=== PATIENT | female | born 1945 | race Caucasian/White ===

== ENCOUNTER → 2016-11-04 | Outpatient (CLI) | payer MEDICARE ==
--- NOTE | 2016-11-04 12:26 | XR ---
EXAMINATION TYPE: XR Hip Bilateral Complete DATE OF EXAM: 11/04/2016 10:20 AM COMPARISON: 09/03/2014 HISTORY: 71 year-old female bilateral hip pain TECHNIQUE: 2 views each hip FINDINGS: Similar mild degenerative spurring of the right hip. No acute fracture or dislocation. Similar mild degenerative spurring of the left hip. No acute fracture or dislocation. Osteopenia. SI joints appear symmetric and intact as does the pubic symphysis. Degenerative changes l ower lumbar spine. IMPRESSION: Mild bilateral hip osteoarthrosis. Osteopenia without displaced fracture.
== END | disposition home or self-care (01) ==
LOC: RADXRMAIN 10:03
PROVIDERS: ATTEND Psychiatry & Neurology Neurology
DX: M16.0 Bilateral primary osteoarthritis of hip (principal); M85.80 Other specified disorders of bone density and structure, unspecified site
CPT/HCPCS: 73521

== ENCOUNTER → 2017-03-08 | Outpatient (CLI) | payer MEDICARE | END | disposition home or self-care (01) | LOC: LABWHC1 09:55 | PROVIDERS: ATTEND Physician Assistant | DX: M79.1 Myalgia (principal) | CPT/HCPCS: 36415; 82085; 82550 ==

== ENCOUNTER → 2017-05-16 | Outpatient (CLI) | payer MEDICARE ==
--- NOTE | 2017-05-18 11:26 | MM ---
Reason for exam: screening (asymptomatic). Last mammogram was performed 1 year and 5 months ago. History: Patient is postmenopausal and has history of other cancer at age 67. Family history of breast cancer in aunt. Benign stereotactic core biopsy of the right breast, May 14, 1998. Excisional biopsy of the left breast. Excisional biopsy of the right breast. Physical Findings: A clinical breast exam by your physician is recommended on an annual basis and results should be correlated with mammographic findings. MG 3D Screening Mammo W/Cad Bilateral CC and MLO view(s) were taken. XCCL view(s) were taken of the right breast. Prior study comparison: December 26, 2015, bilateral MG 3d screening mammo w/cad. August 01, 2014, bilateral MG screening mammo w CAD. Focal asymmetry bilaterally, stable. Port on right. No significant changes when compared with prior studies. ASSESSMENT: Benign, BI-RAD 2 RECOMMENDATION: Routine screening mammogram of both breasts in 1 year.
== END | disposition home or self-care (01) ==
LOC: RADMAMWWP 09:31
PROVIDERS: ATTEND Family Medicine
DX: Z12.31 Encounter for screening mammogram for malignant neoplasm of breast (principal)
CPT/HCPCS: 77063; G0202; 77080

== ENCOUNTER → 2017-07-05 | Outpatient (CLI) | payer MEDICARE ==
--- NOTE | 2017-07-05 13:04 | US ---
EXAMINATION TYPE: US carotid duplex BILAT DATE OF EXAM: 07/05/2017 COMPARISON: NONE CLINICAL HISTORY: 72-year-old female dizziness R42. TECHNIQUE: Carotid duplex ultrasound examination. Indirect Doppler criteria was utilized. FINDINGS: Grayscale images show moderate atherosclerotic change at both bifurcations. EXAM MEASUREMENTS: RIGHT: Peak Systolic Velocity (PSV) cm/sec ----- Right CCA: 74.7 ----- Right ICA: 85.5 ----- Right ECA: 138.4 ICA/CCA ratio: 1.1 RIGHT: End Diastole cm/sec ----- Right CCA: 16.2 ----- Right ICA: 18.3 ----- Right ECA: 20.4 LEFT: Peak Systolic Velocity (PSV) cm/sec ----- Left CCA: 76.7 ----- Left ICA: 116.1 ----- Left ECA: 84.4 ICA/CCA ratio: 1.5 LEFT: End Diastole cm/sec ----- Left CCA: 19.4 ----- Left ICA: 26.7 ----- Left ECA: 8.4 VERTEBRALS (direction of flow): Right Vertebral: Antegrade Left Vertebral: Antegrade Rhythm: Normal IMPRESSION: No hemodynamically significant stenosis appreciated in either internal carotid artery. Criteria for Assigning % of Stenosis / Diameter reduction (Estimation based on the indirect measurements of the internal carotid artery velocities (ICA PSV). 1. Normal (no stenosis)=ICA PSV < 125 cm/s: ratio < 2.0: ICA EDV<40 cm/s. 2. Less than 50% stenosis=ICA PSV < 125 cm/s: ratio < 2.0: ICA EDV<40 cm/s. 3. 50 to 69% stenosis=ICA PSV of 125 to 230 cm/s: ration 2.0 ? 4.0: ICA EDV 40-100 cm/s. 4. Greater than 70% stenosis to near occlusion= ICA PSV > 230 cm/s: ratio > 4.0: ICA EDV > 100 cm/s. 5. Near occlusion= ICA PSV velocities may be low or undetectable: variable ratio and ICA EDV. 6. Total occlusion=unable to detect flow.
== END | disposition home or self-care (01) ==
LOC: RADUSWWP 10:07
PROVIDERS: ATTEND Psychiatry & Neurology Neurology
DX: R42 Dizziness and giddiness (principal)
CPT/HCPCS: 93880

== ENCOUNTER 2018-10-21 19:48 | Emergency (ER) | payer MEDICARE ==
[2018-10-21 20:04] VITALS: RESP 20; TEMP 98.5
--- NOTE | 2018-10-21 20:06 | ED ---
Back Pain HPI - General Chief Complaint: Back Pain/Injury Stated Complaint: Back pain Time Seen by Provider: 10/21/18 20:05 Source: patient, family Limitations: no limitations - History of Present Illness Initial Comments: Wanda is a pleasant 73-year-old female who presents to the emergency department today for evaluation of right-sided flank pain. Patient reports that midafte rnoon she began having pain in the flank she initially thought it may be a muscle spasm she took some nausea and a muscle relaxer with no relief. The pain is continued to worsen throughout the evening which prompted her to come to the ER for evaluation. Pain is not associated with any fever, chills, nausea, vomiting change in bowel or bladder habits. Patient does not noticed any hematuria or dysuria. She has no history of kidney stones. Patient reports that the pain is constant without exacerbating or relieving factors. - Related Data Home Medications Medication Instructions Recorded Confirmed Citalopram Hydrobromide [CeleXA] 20 mg PO HS 08/05/14 08/07/14 Esomeprazole Magnesium [NexIUM 20 mg PO HS 08/05/14 08/07/14 24Hr] Losartan Potassium 100 mg PO DAILY 08/05/14 08/07/14 Montelukast [Singulair] 10 mg PO HS 08/05/14 08/07/14 Warfarin Sodium [Coumadin] 5 mg PO MOFR 08/05/14 08/07/14 Warfarin [Coumadin] 2.5 mg PO SUTUWETHSA 08/05/14 08/07/14 Zolpidem Tartrate [Ambien] 10 mg PO HS 08/05/14 08/07/14 cycloSPORINE [Restasis] 1 applicator BOTH EYES HS 08/05/14 08/07/14 traMADol HCl [Ultram] 50 mg PO BID PRN 08/05/14 08/07/14 Allergies Allergy/AdvReac Type Severity Reaction Status Date / Time Penicillins Allergy Severe throat Verified 10/21/18 20:04 swelling Sulfa (Sulfonamide Allergy Unknown Verified 10/21/18 20:04 Antibiotics) Review of Systems ROS Statement: Those systems with pertinent positive or pertinent negative responses have been documented in the HPI. ROS Other: All systems not noted in ROS Statement are negative. Past Medical History Past Medical History: Atrial Fibrillation, Asthma, Cancer, Chest Pain / Angina, Deep Vein Thrombosis (DVT), GERD/Reflux, Hypertension, Myocardial Infarction (SC), Pulmonary Embolus (PE) Additional Past Medical History / Comment(s): heart murmur, Pe Lt lung 2012, DVT Lt thigh 2012, loose bowels, cold sores, rectal and nonhogkins cancer Last Myocardial Infarction Date:: unknown History of Any Multi-Drug Resistant Organisms: None Reported Past Surgical History: Hysterectomy Past Anesthesia/Blood Transfusion Reactions: No Reported Reaction, Motion Sickness Past Psychological History: No Psychological Hx Reported Smoking Status: Never smoker Past Alcohol Use History: None Reported Past Drug Use History: None Reported - Past Family History father Family Medical History: Deep Vein Thrombosis (DVT) General Exam - General Exam Comments Initial Comments: Physical Exam GENERAL: Appears uncomfortable HENT: Normocephalic, Atraumatic. EYES: PERRL, EOMI PULMONARY: Unlabored respirations. No audible rales rhonchi or wheezing was noted. CARDIOVASCULAR: There is a regular rate and rhythm without any murmurs gallops or rubs. Abdomen well-perfused lower extremities DP and PT pulses are present and equal bilaterally, femoral pulses present and equal bilaterally no pulsatile masses in the abdomen ABDOMEN: Soft and nontender with normal bowel sounds. Tenderness to percussion of the right flank SKIN: Skin is clear with no lesions or rashes and otherwise unremarkable. : Deferred NEUROLOGIC: Patient is alert and oriented x3. Moving all extremities spontaneously MUSCULOSKELETAL: Normal extremities with adequate strength and full range of motion. No lower extremity swelling or edema. No calf tenderness. PSYCHIATRIC: Normal psychiatric evaluation. Limitations: no limitations Limitations: no limitations Course Vital Signs 10/21/18 10/21/18 20:00 23:10 Temperature 98.5 F Pulse Rate 92 83 Respiratory 20 20 Rate Blood Pressure 205/76 142/73 O2 Sat by Pulse 100 99 Oximetry Medical Decision Making - Medical Decision Making The patient was seen and evaluated history is obtained from the patient and at bedside This is a pleasant 73-year-old female with right-sided flank pain with no associated symptoms this is been ongoing for a number of hours without relieving factors Patient cannot find a comfortable position she is moving about history and physical exam are concerning for kidney stone though the patient has no history of such she does have a history of hypertension hyperlipidemia an SC in the past therefore a CT with contrast will be ordered to evaluate the vasculature in the abdomen as well Labs imaging morphine were ordered Labs are unremarkable CT scan reveals no acute abnormalities Patient was given Toradol and Valium upon reevaluation the patient reports she is feeling much better she is much more comfortable at this time. I discussed with the patient the negative workup so far. I advised her that it is possible she is having a muscle spasm is felt was her initial not however I did advise her that she should keep a close eye on the area and if she develops any rashing needs to be evaluated for possible shingles as she may be experiencing neuralgia. Patient's breast understanding of this. All questions pertaining care were answered return parameters were discussed patient with discharge home in stable condition - Lab Data Result diagrams: 10/21/18 21:17 10/21/18 21:17 Lab Results 10/21/18 10/21/18 10/21/18 Range/Units 21:17 21:17 21:17 WBC 10.7 H (3.8-10.6) k/uL RBC 4.52 (3.80-5.40) m/uL Hgb 13.5 (11.4-16.0) gm/dL Hct 40.8 (34.0-46.0) % MCV 90.2 (80.0-100.0) fL MCH 29.9 (25.0-35.0) pg MCHC 33.2 (31.0-37.0) g/dL RDW 13.8 (11.5-15.5) % Plt Count 259 (150-450) k/uL Neutrophils % 65 % Lymphocytes % 26 % Monocytes % 4 % Eosinophils % 3 % Basophils % 1 % Neutrophils # 6.9 (1.3-7.7) k/uL Lymphocytes # 2.7 (1.0-4.8) k/uL Monocytes # 0.4 (0-1.0) k/uL Eosinophils # 0.3 (0-0.7) k/uL Basophils # 0.1 (0-0.2) k/uL PT 26.0 H (9.0-12.0) sec INR 2.7 H (<1.2) Sodium 137 (137-145) mmol/L Potassium 4.5 (3.5-5.1) mmol/L Chloride 100 (98-107) mmol/L Carbon Dioxide 24 (22-30) mmol/L Anion Gap 13 mmol/L BUN 29 H (7-17) mg/dL Creatinine 1.18 H (0.52-1.04) mg/dL Est GFR (CKD-EPI)AfAm 53 (>60 ml/min/1.73 sqM) Est GFR (CKD-EPI)NonAf 46 (>60 ml/min/1.73 sqM) Glucose 121 H (74-99) mg/dL Calcium 10.4 H (8.4-10.2) mg/dL Total Bilirubin 0.6 (0.2-1.3) mg/dL AST 27 (14-36) U/L ALT 32 (9-52) U/L Alkaline Phosphatase 129 H (38-126) U/L Total Protein 7.9 (6.3-8.2) g/dL Albumin 4.7 (3.5-5.0) g/dL Urine Color Urine Appearance (Clear) Urine pH (5.0-8.0) Ur Specific [place] (1.001-1.035) Urine Protein (Negative) Urine Glucose (UA) (Negative) Urine Ketones (Negative) Urine Blood (Negative) Urine Nitrite (Negative) Urine Bilirubin (Negative) Urine Urobilinogen (<2.0) mg/dL Ur Leukocyte Esterase (Negative) Urine RBC (0-5) /hpf Urine WBC (0-5) /hpf Urine Mucus (None) /hpf 10/21/18 Range/Units 21:26 WBC (3.8-10.6) k/uL RBC (3.80-5.40) m/uL Hgb (11.4-16.0) gm/dL Hct (34.0-46.0) % MCV (80.0-100.0) fL MCH (25.0-35.0) pg MCHC (31.0-37.0) g/dL RDW (11.5-15.5) % Plt Count (150-450) k/uL Neutrophils % % Lymphocytes % % Monocytes % % Eosinophils % % Basophils % % Neutrophils # (1.3-7.7) k/uL Lymphocytes # (1.0-4.8) k/uL Monocytes # (0-1.0) k/uL Eosinophils # (0-0.7) k/uL Basophils # (0-0.2) k/uL PT (9.0-12.0) sec INR (<1.2) Sodium (137-145) mmol/L Potassium (3.5-5.1) mmol/L Chloride (98-107) mmol/L Carbon Dioxide (22-30) mmol/L Anion Gap mmol/L BUN (7-17) mg/dL Creatinine (0.52-1.04) mg/dL Est GFR (CKD-EPI)AfAm (>60 ml/min/1.73 sqM) Est GFR (CKD-EPI)NonAf (>60 ml/min/1.73 sqM) Glucose (74-99) mg/dL Calcium (8.4-10.2) mg/dL Total Bilirubin (0.2-1.3) mg/dL AST (14-36) U/L ALT (9-52) U/L Alkaline Phosphatase (38-126) U/L Total Protein (6.3-8.2) g/dL Albumin (3.5-5.0) g/dL Urine Color Light Yellow Urine Appearance Clear (Clear) Urine pH 7.0 (5.0-8.0) Ur Specific [place] 1.008 (1.001-1.035) Urine Protein Negative (Negative) Urine Glucose (UA) Negative (Negative) Urine Ketones Negative (Negative) Urine Blood Negative (Negative) Urine Nitrite Negative (Negative) Urine Bilirubin Negative (Negative) Urine Urobilinogen <2.0 (<2.0) mg/dL Ur Leukocyte Esterase Small H (Negative) Urine RBC <1 (0-5) /hpf Urine WBC 6 H (0-5) /hpf Urine Mucus Rare H (None) /hpf Disposition Clinical Impression: Mechanical back pain Disposition: HOME SELF-CARE Condition: Stable Instructions (If sedation given, give patient instructions): Acute Low Back Pain (ED) Additional Instructions: Keep an eye out for any rash if you develop any rash there is concern he could be developing shingles and the need to be reevaluated to start antiviral therapy. Is patient prescribed a controlled substance at d/c from ED?: No Referrals: Sukumar Rosa MD [Primary Care Provider] - 1-2 days
[2018-10-21] MEDS ORDERED: SODIUM CHLORIDE 0.9% 1,000 ML IV ONE ×2 (21:05→21:59)
[2018-10-21] MEDS ORDERED: MORPHINE SULFATE 4 MG/ML SYRINGE IVP STA (21:05)
[2018-10-21 21:31] LABS: Basophils # (A) 0.1 k/uL (0-0.2); Basophils % (A) 1 %; Eosinophils # (A) 0.3 k/uL (0-0.7); Eosinophils % (A) 3 %; HCT 40.8 % (34.0-46.0); HGB 13.5 gm/dL (11.4-16.0); Lymphocytes # (A) 2.7 k/uL (1.0-4.8); Lymphocytes % (A) 26 %; MCH 29.9 pg (25.0-35.0); MCHC 33.2 g/dL (31.0-37.0); MCV 90.2 fL (80.0-100.0); Mean Platelet Volume 6.7; Monocytes # (A) 0.4 k/uL (0-1.0); Monocytes % (A) 4 %; Neutrophils # (A) 6.9 k/uL (1.3-7.7); Neutrophils % (A) 65 %; Platelet Count 259 k/uL (150-450); RBC 4.52 m/uL (3.80-5.40); RDW 13.8 % (11.5-15.5); WBC 10.7 k/uL (3.8-10.6)
[2018-10-21 21:41] LABS: Albumin 4.7 g/dL (3.5-5.0); Calcium 10.4 mg/dL (8.4-10.2); Potassium 4.5 mmol/L (3.5-5.1); Total Bilirubin 0.6 mg/dL (0.2-1.3); Total Protein 7.9 g/dL (6.3-8.2)
[2018-10-21 21:42] LABS: INR 2.7 (<1.2)
[2018-10-21 22:23] LABS: Appearance,Urine Clear (Clear); Bilirubin,Urine Negative (Negative); Blood,Urine Negative (Negative); Color,Urine Light Yellow; Glucose,Urine (UA) Negative (Negative); Ketones,Urine Negative (Negative); Leukocyte Esterase,Urine Small (Negative); Mucus,Urine Rare /hpf; Nitrite,Urine Negative (Negative); Protein,Urine Negative (Negative); RBC,Urine <1 /hpf (0-5); Specific Gravity,Urine 1.008 (1.001-1.035); Urobilinogen,Urine <2.0 mg/dL (<2.0); WBC,Urine 6 /hpf (0-5)
--- NOTE | 2018-10-21 22:32 | CT ---
EXAM: CT Abdomen and Pelvis With Intravenous Contrast CLINICAL HISTORY: ITS.REASON CT Reason: Pain TECHNIQUE: Axial computed tomography images of the abdomen and pelvis with intravenous contrast. CTDI is 7.1, 7 mGy and DLP is 410.5, 258.5 mGy-cm. This CT exam was performed using one or more of the following dose reduction techniques: automated exposure control, adjustment of the mA and/or kV according to patient size, and/or use of iterative reconstruction technique. Delayed imaging was performed. COMPARISON: CT chest abdomen and pelvis 03/17/2016. FINDINGS: Lung bases: Unremarkable. No mass. No consolidation. ABDOMEN: Liver: Unremarkable. No mass. Gallbladder and bile ducts: Mild intrahepatic biliary dilatation status post cholecystectomy. This is not significantly changed compared to prior examination. Pancreas: Unremarkable. No mass. No ductal dilation. Spleen: Unremarkable. No splenomegaly. Adrenals: Unremarkable. No mass. Kidneys and ureters: Stable left renal cyst measuring up to 4.3 cm. No hydronephrosis. Stomach and bowel: Unremarkable. No obstruction. No mucosal thickening. PELVIS: Appendix: No findings to suggest acute appendicitis. Bladder: Unremarkable. No mass. Reproductive: Hysterectomy. ABDOMEN and PELVIS: Intraperitoneal space: Unremarkable. No free air. No significant fluid collection. Bones/joints: Diffusely decreased osseous mineralization. Degenerative change throughout the lumbar spine. No acute fracture. No dislocation. Soft tissues: Unremarkable. Vasculature: Atherosclerotic desiccation throughout the abdominal aorta and its major branches. No abdominal aortic aneurysm. Lymph nodes: Unremarkable. No enlarged lymph nodes. IMPRESSION: No acute abnormality.
[2018-10-21] MEDS ORDERED: DIAZEPAM 5 MG TAB PO STA (22:46)
[2018-10-21] MEDS ORDERED: KETOROLAC 30 MG/ML 1 ML VIAL IVP STA (22:46)
[2018-10-21 23:10] VITALS: BP 142/73; PULSE 83
== END 2018-10-21 23:57 | disposition home or self-care (01) ==
LOC: EC 19:48
DX: M54.9 Dorsalgia, unspecified (principal); R10.9 Unspecified abdominal pain; I48.91 Unspecified atrial fibrillation; J45.909 Unspecified asthma, uncomplicated; I10 Essential (primary) hypertension; I25.2 Old myocardial infarction; K21.9 Gastro-esophageal reflux disease without esophagitis; Z88.0 Allergy status to penicillin; Z88.2 Allergy status to sulfonamides; Z79.01 Long term (current) use of anticoagulants; Z79.899 Other long term (current) drug therapy; Z85.72 Personal history of non-Hodgkin lymphomas; Z85.048 Personal history of other malignant neoplasm of rectum, rectosigmoid junction, and anus; Z86.718 Personal history of other venous thrombosis and embolism; Z86.711 Personal history of pulmonary embolism
CPT/HCPCS: 36415; 80053; 85025; 85610; 81001; 74177; 99284; 96374; 96375; 96361 ×2; J2270; J1885; Q9967

== ENCOUNTER 2018-10-27 16:58 | Emergency (ER) | payer MEDICARE ==
[2018-10-27 17:09] VITALS: TEMP 98
[2018-10-27] MEDS ORDERED: DIAZEPAM 2 MG TAB PO STA (18:15)
[2018-10-27] MEDS ORDERED: MORPHINE SULFATE 2 MG/ML SYRINGE IVP STA ×3 (18:16→20:48)
[2018-10-27 18:19] LABS: Basophils # (A) 0.1 k/uL (0-0.2); Basophils % (A) 1 %; Eosinophils # (A) 0.3 k/uL (0-0.7); Eosinophils % (A) 3 %; HCT 39.5 % (34.0-46.0); HGB 13.4 gm/dL (11.4-16.0); Lymphocytes # (A) 2.3 k/uL (1.0-4.8); Lymphocytes % (A) 23 %; MCHC 33.9 g/dL (31.0-37.0); MCV 91.7 fL (80.0-100.0); Mean Platelet Volume 7.1; Monocytes # (A) 0.5 k/uL (0-1.0); Monocytes % (A) 5 %; Neutrophils # (A) 6.4 k/uL (1.3-7.7); Neutrophils % (A) 65 %; Platelet Count 239 k/uL (150-450); RBC 4.31 m/uL (3.80-5.40); RDW 13.9 % (11.5-15.5); WBC 9.7 k/uL (3.8-10.6)
[2018-10-27 18:39] LABS: Albumin 4.5 g/dL (3.5-5.0); Calcium 10.5 mg/dL (8.4-10.2); Potassium 4.6 mmol/L (3.5-5.1); Total Bilirubin 0.6 mg/dL (0.2-1.3); Total Protein 7.5 g/dL (6.3-8.2)
[2018-10-27] MEDS ORDERED: DIAZEPAM 5 MG/ML 2 ML INJ IVP STA (18:41)
[2018-10-27 18:45] LABS: INR 2.7 (<1.2); Partial Thromboplastin Time 35.7 sec (22.0-30.0); Prothrombin Time 26.1 sec (9.0-12.0)
--- NOTE | 2018-10-27 19:15 | CT ---
EXAMINATION TYPE: CT angio chest DATE OF EXAM: 10/27/2018 COMPARISON: 03/17/2016 HISTORY: Upper back pain. CT DLP: 213 mGycm CONTRAST: CT chest with contrast and 3D reconstruction with MIP imaging is performed with IV Contrast, patient injected with 60 mL of Isovue 370. Contrast-enhanced CT of the chest was performed through the course of the pulmonary arteries with courtnye g and mediastinal window settings submitted. 3D reconstruction with MIP imaging was also performed. PULMONARY ARTERIES: The pulmonary arteries and their major tributaries are patent. I do not see eben dence for sizable filling defect to suggest pulmonary embolic process. LUNGS: The lungs are clear and free of infiltrate. No evidence for atelectasis. No pulmonary nodule or mass is detected. No pleural effusion. MEDIASTINUM: Thoracic aorta is of normal caliber,however, evaluation is limited given timing of the contrast bolus. If there is concern for thoracic aortic pathology consider RAYSHAWN. Correlate clinicall y . The heart is not enlarged. No evidence for mediastinal mass. No mediastinal lymph nodes greater than 1cm. HILAR STRUCTURES: No evidence for mass. No hilar lymph nodes greater than 1 cm. UPPER ABDOMEN: No significant abnormality is seen. IMPRESSION: 1. No evidence for Pulmonary embolism at this time.
--- NOTE | 2018-10-27 19:17 | CT ---
EXAMINATION TYPE: CT thoracic spine w con DATE OF EXAM: 10/27/2018 COMPARISON: None HISTORY: Upper back pain. CT DLP: 213 mGycm CONTRAST: Contrast-enhanced CT of the thoracic spine is performed with IV Contrast, patient injected with mL of Isovue 370. I do not see evidence for fracture or dislocation. No bony lesions seen. No evidence for paraspinal m ass. No bony destructive process. Mild scattered degenerative disc disease. No significant disc herni ation. IMPRESSION: 1. No evidence for fracture or dislocation.
[2018-10-27 19:31] VITALS: RESP 18
--- NOTE | 2018-10-27 20:29 | ED ---
Back Pain HPI - General Chief Complaint: Back Pain/Injury Stated Complaint: back pain Time Seen by Provider: 10/27/18 17:16 Source: patient Limitations: no limitations - History of Present Illness Initial Comments: 73-year-old female presents today for chief complaint of muscle spasms in the thoracic spine. Patient states a few days prior she was raking leaves she states should not make very much and does not think this for cause such spasms. Patient states she was seen Tuesday for similar complaint. She states that her CT was negative. Patient states she has been prescribed muscle relaxers by primary care provider however these do not seem to help. Patient denies chest pain dyspnea dyspnea on exertion fever or chills. Patient states she does have history of non-Hodgkin's lymphoma over this has been remission for the past 5 years patient denies any recent chemotherapy or radiation. Patient states she did have pulmonary embolism and previous DVTs were all having active cancer. Patient states she is on Coumadi for history of atrial fibrillation. Patient states that that area is tender to palpation, and increases with any movement. Patient denies any lower extremity swelling pallor or coolness of the lower extremities she denies any recent fall or direct trauma to the back. Patient denies any rashes. Muscle spasms persisted today patient decided to present for evaluation. Upon arrival patient's blood pressure elevated, remaining vital signs within acceptable limits. - Related Data Home Medications Medication Instructions Recorded Confirmed Citalopram Hydrobromide [CeleXA] 20 mg PO HS 08/05/14 10/27/18 Esomeprazole Magnesium [NexIUM 20 mg PO HS 08/05/14 10/27/18 24Hr] Losartan Potassium 100 mg PO DAILY 08/05/14 10/27/18 Montelukast [Singulair] 10 mg PO HS 08/05/14 10/27/18 Warfarin Sodium [Coumadin] 5 mg PO MO 08/05/14 10/27/18 Warfarin [Coumadin] 2.5 mg PO SUTUWETHFRSA 08/05/14 10/27/18 Zolpidem Tartrate [Ambien] 10 mg PO HS 08/05/14 10/27/18 cycloSPORINE [Restasis] 1 applicator BOTH EYES HS 08/05/14 10/27/18 traMADol HCl [Ultram] 50 mg PO BID PRN 08/05/14 10/27/18 Methocarbamol [Robaxin] 500 mg PO Q6H PRN 10/27/18 10/27/18 Naproxen Sodium [Aleve] 220 mg PO Q12HR PRN 10/27/18 10/27/18 Previous Rx's Medication Instructions Recorded Diazepam [Valium] 5 mg PO BID PRN 3 Days #6 tab 10/27/18 Allergies Allergy/AdvReac Type Severity Reaction Status Date / Time Penicillins Allergy Severe throat Verified 10/27/18 17:46 swelling Sulfa (Sulfonamide Allergy Swelling Verified 10/27/18 17:46 Antibiotics) Review of Systems ROS Statement: Those systems with pertinent positive or pertinent negative responses have been documented in the HPI. ROS Other: All systems not noted in ROS Statement are negative. Past Medical History Past Medical History: Atrial Fibrillation, Asthma, Cancer, Chest Pain / Angina, Deep Vein Thrombosis (DVT), GERD/Reflux, Hypertension, Myocardial Infarction ([place]), Pulmonary Embolus (PE) Additional Past Medical History / Comment(s): heart murmur, Pe Lt lung 2012, DVT Lt thigh 2012, loose bowels, cold sores, rectal and nonhogkins cancer Last Myocardial Infarction Date:: unknown History of Any Multi-Drug Resistant Organisms: None Reported Past Surgical History: Hysterectomy Past Anesthesia/Blood Transfusion Reactions: No Reported Reaction, Motion Sickness Past Psychological History: No Psychological Hx Reported Smoking Status: Never smoker Past Alcohol Use History: None Reported Past Drug Use History: None Reported - Past Family History father Family Medical History: Deep Vein Thrombosis (DVT) General Exam - General Exam Comments Initial Comments: General: The patient is awake and alert, in no distress Eye: Pupils are equal, round and reactive to light, extra-ocular movements are intact. No nystagmus. There is normal conjunctiva bilaterally. No signs of icterus. Ears, nose, mouth and throat: There are moist mucous membranes and no oral lesions. Neck: The neck is supple, there is no tenderness or JVD. Cardiovascular: There is a regular rate and rhythm. No murmur, rub or gallop is appreciated. Respiratory: Lungs are clear to auscultation, respirations are non-labored, breath sounds are equal. No wheezes, stridor, rales, or rhonchi. Gastrointestinal: Soft, non-distended, non-tender abdomen without masses or organomegaly noted. There is no rebound or guarding present. No pulsatile masses. No CVA tenderness. Bowel sounds are unremarkable. Musculoskeletal: Upon inspection of the cervical thoracic and lumbar spine there is no rashes lesions abrasions. No ecchymosis or evidence of trauma. Gabriel lindsay has no midline tenderness to palpation of the cervical thoracic or lumbar spine. There is significant paravertebral tenderness of the thoracic spine as well as palpable muscle spasm. Patient states this area is very tender to palpation. Normal ROM, no tenderness of the upper and lower extremities equal and comparison bilaterally. Strength 5/5 of the upper and lower extremities equal and comparison bilaterally. Sensation intact. Radial and DP pulses equal bilaterally 2+. Neurological: A&O x 3. CN II-XII intact, There are no obvious motor or sensory deficits. Coordination appears grossly intact. Speech is normal. Skin: Skin is warm and dry and no rashes or lesions are noted. Psychiatric: Cooperative, appropriate mood & affect, normal judgment. Limitations: no limitations Course Vital Signs 10/27/18 10/27/18 10/27/18 17:05 18:05 19:29 Temperature 98.0 F Pulse Rate 72 89 79 Respiratory 18 22 18 Rate Blood Pressure 187/88 143/87 151/100 O2 Sat by Pulse 99 99 94 L Oximetry 10/27/18 10/27/18 10/27/18 19:53 21:15 21:30 Temperature Pulse Rate 76 87 75 Respiratory 18 18 18 Rate Blood Pressure 152/74 160/72 139/70 O2 Sat by Pulse 99 98 99 Oximetry Medical Decision Making - Medical Decision Making Uncomfortable appearing 73-year-old female presenting today for chief complaint of mid back muscle spasm. Patient has reproducible back pain of the thoracic region, there is palpable muscle tension. Patient was given Valium morphine. Given patient's advanced age and elevated blood pressure concern for possibility of aortic dissection and with patient's history of DVT/cancer and previous PE concern for possible atypical presentation of pulmonary embolism, these ddx were not my suspected #1 diagnosis. CTA with no obvious abnormalities of the aorta no evidence of dissection--I did have low clinical suspicion, or findings consistent with pulmonary embolism. Patient had significant improvement of pain and muscle spasm with Valium and morphine. Patient states is now localized only to one side of the mid thoracic back. Given the pain is reproducible. Controlled with muscle relaxer and pain medication with negative imaging studies and unremarkable laboratory studies I feel patient pain is most likely muscu loskeletal. Patient will be given a prescription of Valium as recommended by attending provider Dr. Wilson. I did educate the risk involved dime including sedation respiratory depression and even . I discussed the proper use, and discussed not to avoid specific medication the patient previously takes at home. Patient verbalized understanding as well as patient's who is bedside in the room. At this time patient states she is ready for discharge. Case was discussed in detail with the tape fire Dr. Wilson is agreeable patient care plan as well as discharged today. All questions were answered medical stability return parameters were discussed at length with both and herse lf. - Lab Data Result diagrams: 10/27/18 18:00 10/27/18 18:00 Lab Results 10/27/18 10/27/18 10/27/18 Range/Units 18:00 18:00 18:00 WBC 9.7 (3.8-10.6) k/uL RBC 4.31 (3.80-5.40) m/uL Hgb 13.4 (11.4-16.0) gm/dL Hct 39.5 (34.0-46.0) % MCV 91.7 (80.0-100.0) fL MCH 31.0 (25.0-35.0) pg MCHC 33.9 (31.0-37.0) g/dL RDW 13.9 (11.5-15.5) % Plt Count 239 (150-450) k/uL Neutrophils % 65 % Lymphocytes % 23 % Monocytes % 5 % Eosinophils % 3 % Basophils % 1 % Neutrophils # 6.4 (1.3-7.7) k/uL Lymphocytes # 2.3 (1.0-4.8) k/uL Monocytes # 0.5 (0-1.0) k/uL Eosinophils # 0.3 (0-0.7) k/uL Basophils # 0.1 (0-0.2) k/uL PT 26.1 H (9.0-12.0) sec INR 2.7 H (<1.2) APTT 35.7 H (22.0-30.0) sec Sodium 136 L (137-145) mmol/L Potassium 4.6 (3.5-5.1) mmol/L Chloride 100 (98-107) mmol/L Carbon Dioxide 24 (22-30) mmol/L Anion Gap 12 mmol/L BUN 26 H (7-17) mg/dL Creatinine 1.02 (0.52-1.04) mg/dL Est GFR (CKD-EPI)AfAm 63 (>60 ml/min/1.73 sqM) Est GFR (CKD-EPI)NonAf 55 (>60 ml/min/1.73 sqM) Glucose 109 H (74-99) mg/dL Calcium 10.5 H (8.4-10.2) mg/dL Total Bilirubin 0.6 (0.2-1.3) mg/dL AST 24 (14-36) U/L ALT 69 H (9-52) U/L Alkaline Phosphatase 128 H (38-126) U/L Total Protein 7.5 (6.3-8.2) g/dL Albumin 4.5 (3.5-5.0) g/dL Disposition Clinical Impression: Spasm of back muscles Disposition: HOME SELF-CARE Condition: Good Instructions (If sedation given, give patient instructions): Muscle Spasm (ED) Additional Instructions: Please use medication as discussed. Please follow-up with family doctor in the next 2 days of symptoms, please follow-up with orthopedic surgery. Please return to emergency room if the symptoms increase or worsen or for any other concerns. Prescriptions: Diazepam [Valium] 5 mg PO BID PRN 3 Days #6 tab PRN Reason: Spasms Is patient prescribed a controlled substance at d/c from ED?: No Referrals: Sukumar Rosa MD [Primary Care Provider] - 1-2 days Francis Lawson PAC [PHYSICIAN ANALYST [employer]] - 1-2 days Time of Disposition: 20:29
[2018-10-27] MEDS ORDERED: DIAZEPAM 5 MG TAB PO STA (20:30)
[2018-10-27 21:33] VITALS: BP 139/70; PULSE 75
== END 2018-10-27 21:30 | disposition home or self-care (01) ==
LOC: EC 16:58
DX: M62.830 Muscle spasm of back (principal); I10 Essential (primary) hypertension; I48.91 Unspecified atrial fibrillation; J45.909 Unspecified asthma, uncomplicated; K21.9 Gastro-esophageal reflux disease without esophagitis; I25.2 Old myocardial infarction; Z88.0 Allergy status to penicillin; Z88.2 Allergy status to sulfonamides; Z79.01 Long term (current) use of anticoagulants; Z79.899 Other long term (current) drug therapy; Z85.72 Personal history of non-Hodgkin lymphomas; Z86.711 Personal history of pulmonary embolism; Z86.718 Personal history of other venous thrombosis and embolism
CPT/HCPCS: 36415; 80053; 85025; 85610; 85730; 72129; 71275; 99284; 96374; 96375; 96376 ×2; J3360; J2270; Q9967

== ENCOUNTER → 2019-01-23 | Outpatient (CLI) | payer MEDICARE ==
--- NOTE | 2019-01-23 14:32 | MM ---
Reason for exam: additional evaluation requested from prior study. Last mammogram was performed 1 year and 8 months ago. History: Patient is postmenopausal and has history of other cancer at age 67. Family history of breast cancer in aunt. Benign stereotactic core biopsy of the right breast, May 14, 1998. Excisional biopsy of the left breast. Excisional biopsy of the right breast. Physical Findings: Nurse Summary: left breast pain 1 o'clock x 6 months (nurse cw). MG 3D Diag Mammo W/Cad ABIGAIL Bilateral CC and MLO view(s) were taken. Prior study comparison: May 16, 2017, bilateral MG 3d screening mammo w/cad. December 26, 2015, bilateral MG 3d screening mammo w/cad. There are scattered fibroglandular densities. No significant new findings when compared with previous films. These results were verbally communicated with the patient and result sheet given to the patient on 01/23/19. ASSESSMENT: Benign, BI-RAD 2 RECOMMENDATION: Routine screening mammogram of both breasts in 1 year. Manage patient on a clinical basis.
--- NOTE | 2019-01-23 14:33 | USB ---
Reason for exam: clinical finding. History: Patient is postmenopausal and has history of other cancer at age 67. Family history of breast cancer in aunt. Benign stereotactic core biopsy of the right breast, May 14, 1998. Excisional biopsy of the left breast. Excisional biopsy of the right breast. US Breast LT Left complete breast ultrasound includes all four quadrants, the retroareolar region and axilla. Finding demonstrates no cystic or solid lesion seen. These results were verbally communicated with the patient and result sheet given to the patient on 01/23/19. ASSESSMENT: Negative, BI-RAD 1 RECOMMENDATION: Routine screening mammogram of both breasts in 1 year.
== END | disposition home or self-care (01) ==
LOC: RADMAMWWP 12:49
PROVIDERS: ATTEND Internal Medicine Hematology & Oncology
DX: N64.4 Mastodynia (principal)
CPT/HCPCS: 77066; 76641; G0279; 77062

== ENCOUNTER 2019-08-01 07:31 | Day surgery (SDC) | payer MEDICARE ==
[2019-07-30 11:37] VITALS: BMI 27.4
[~2019-08-01 07:31] MED LIST: LACTATED RINGERS 1,000 ML IV SCH; LIDOCAINE 1% (10MG/ML) FOR IV START INTRADERMA PRN
[2019-08-01 08:23] VITALS: TEMP 96.9
[2019-08-01] MEDS ORDERED: PROPOFOL 10 MG/ML 20 ML VIAL IV ONE (08:28)
--- NOTE | 2019-08-01 08:49 | P.PCN ---
Date of Procedure: 08/01/19 Procedure(s) Performed: BRIEF HISTORY: Patient is a 74-year-old pleasant white female scheduled for an elective colonoscopy as a part of that issue prior history of colon polyps and colonic lymphoma diagnosed in 2010. She was subsequently diagnosed with non- Hodgkin's lymphoma and underwent chemotherapy in 2012 and remains in clinical remission. Last colonoscopy was 5 years ago. PROCEDURE PERFORMED: Colonoscopy. PREOPERATIVE DIAGNOSIS: History of colon polyps and colonic lymphoma diagnosed in 2010. IV sedation per Anesthesia. PROCEDURE: After informed consent was obtained, the patient, was brought into the endoscopy unit. IV sedation was administered by Anesthesia under continuous monitoring. Digital rectal examination was normal. Initially the Olympus CF-160 flexible video colonoscope was then inserted in the rectum, gradually advanced into the cecum without any difficulty. Careful examination was performed as the scope was gradually being withdrawn. Ileocecal valve and the appendiceal orifice were visualized and appeared normal. Prep was excellent. Mucosa of the cecum, ascending colon, transverse colon, descending colon, sigmoid colon, and rectum appeared normal. Retroflexion was performed in the rectum and no lesions were seen. The patient tolerated the procedure well. IMPRESSION: Normal-appearing colon from rectum to cecum with no evidence of colorectal neoplasia. RECOMMENDATIONS: Findings of this examination were discussed with the patient as well as a family. She was advised to have a repeat surveillance colonoscopy in 5 years from now.
[2019-08-01 09:04] VITALS: BP 147/77; PULSE 60; RESP 18
== END 2019-08-01 09:39 | disposition home or self-care (01) ==
LOC: ORWHC2ENDO 07:31
PROVIDERS: ATTEND Internal Medicine Gastroenterology
DX: Z12.11 Encounter for screening for malignant neoplasm of colon (principal); Z86.010 Personal history of colon polyps; Z85.72 Personal history of non-Hodgkin lymphomas; I48.91 Unspecified atrial fibrillation; E78.5 Hyperlipidemia, unspecified; J44.9 Chronic obstructive pulmonary disease, unspecified; E07.9 Disorder of thyroid, unspecified; F32.9 Major depressive disorder, single episode, unspecified; K21.9 Gastro-esophageal reflux disease without esophagitis; Z92.21 Personal history of antineoplastic chemotherapy; Z88.0 Allergy status to penicillin; Z88.2 Allergy status to sulfonamides; Z79.01 Long term (current) use of anticoagulants; Z79.1 Long term (current) use of non-steroidal anti-inflammatories (NSAID); Z79.899 Other long term (current) drug therapy; Z79.891 Long term (current) use of opiate analgesic; Z79.890 Hormone replacement therapy; Z98.890 Other specified postprocedural states; Z90.89 Acquired absence of other organs; Z90.710 Acquired absence of both cervix and uterus
CPT/HCPCS: J2704; G0105; 45378

== ENCOUNTER → 2019-09-26 | Outpatient (CLI) | payer MEDICARE ==
--- NOTE | 2019-09-26 13:52 | ECHOF ---
Referral Reason:I48.91 Atrial fibrillation MEASUREMENTS -------- HEIGHT: 157.5 cm WEIGHT: 68.9 kg BP: IVSd: 0.8 cm (0.6 - 1.1) LVIDd: 4.2 cm (3.9 - 5.3) LVPWd: 1.0 cm (0.6 - 1.1) IVSs: 1.3 cm LVIDs: 2.1 cm LVPWs: 1.4 cm LAESV Index (A-L): 24.56 ml/m Ao Diam: 2.8 cm (2.0 - 3.7) AV Cusp: 1.6 cm (1.5 - 2.6) LA Diam: 3.2 cm (2.7 - 3.8) MV EXCURSION: 14.577 mm (> 18.000) MV EF SLOPE: 69 mm/s (70 - 150) EPSS: 2.6 cm MV E Bowen: 0.91 m/s MV DecT: 211 ms MV A Bowen: 0.87 m/s MV E/A Ratio: 1.04 RAP: 5.00 mmHg RVSP: 32.95 mmHg FINDINGS -------- Atrial fibrillation. This was a technically good study. The left ventricular size is normal. Left ventricular wall thickness is normal. Overall left vent ricular systolic function is normal with, an EF between 55 - 60 %. Left ventricular fillimg pressur e cannot be estimated due to Atrial fibrillation. The right ventricle is normal in size. The left atrial size is normal. Normal LA size by volume 22+/-6 ml/m2. The right atrial size is normal. Aortic valve is trileaflet and is mildly thickened. The mitral valve is normal. The mitral valve leaflets are mildly thickened. No mitral regurgitati on. The tricuspid valve appears structurally normal. Mild tricuspid regurgitation present. Right vent ricular systolic pressure is normal at < 35 mmHg. There is no pulmonic regurgitation present. The aortic root size is normal. Normal inferior vena cava with normal inspiratory collapse consistent with estimated right atrial pre ssure of 5 mmHg. There is no pericardial effusion. CONCLUSIONS -------- 1. Atrial fibrillation. 2. This was a technically good study. 3. The left ventricular size is normal. 4. Left ventricular wall thickness is normal. 5. Overall left ventricular systolic function is normal with, an EF between 55 - 60 %. 6. Left ventricular fillimg pressure cannot be estimated due to Atrial fibrillation. 7. The right ventricle is normal in size. 8. The left atrial size is normal. 9. Normal LA size by volume 22+/-6 ml/m2. 10. The right atrial size is normal. 11. Aortic valve is trileaflet and is mildly thickened. 12. The mitral valve is normal. 13. The mitral valve leaflets are mildly thickened. 14. No mitral regurgitation. 15. The tricuspid valve appears structurally normal. 16. Mild tricuspid regurgitation present. 17. Right ventricular systolic pressure is normal at < 35 mmHg. 18. There is no pulmonic regurgitation present. 19. The aortic root size is normal. 20. Normal inferior vena cava with normal inspiratory collapse consistent with estimated right atrial pressure of 5 mmHg. 21. There is no pericardial effusion. SCHOOL NURSE: Lydia Agustin RDCS
== END | disposition home or self-care (01) ==
LOC: RADECHMAIN 10:30
PROVIDERS: ATTEND Family Medicine
DX: I35.8 Other nonrheumatic aortic valve disorders (principal); I05.8 Other rheumatic mitral valve diseases; I07.1 Rheumatic tricuspid insufficiency; I48.91 Unspecified atrial fibrillation
CPT/HCPCS: 93306

== ENCOUNTER 2020-08-02 03:08 | Inpatient (IN) | payer MEDICARE ==
[2020-08-02] MEDS ORDERED: MORPHINE SULFATE 4 MG/ML SYRINGE IV STA (03:36)
[2020-08-02] MEDS ORDERED: NITROGLYCERIN SL TABS 0.4 MG TAB SUBLINGUAL STA (03:36)
[2020-08-02] MEDS ORDERED: ONDANSETRON 4 MG/2 ML VIAL IVP STA (03:36)
--- NOTE | 2020-08-02 03:37 | ED ---
Chest Pain HPI - General Chief Complaint: Chest Pain Stated Complaint: Chest Pain Time Seen by Provider: 08/02/20 03:12 Source: patient, EMS Mode of arrival: EMS - History of Present Illness Initial Comments: This patient is 75-year-old woman with history of atrial fibrillation who presents with complaint of having substernal chest pain that developed around 2 AM. The patient states she had been trying to sleep and then developed the chest pain. She tried sitting up but it was not relieved so she felt she should be evaluated here. She states that the pain as a heaviness, constant, without any worsening or relieving factors. The pain does radiate to her back. The patient has been having a little bit shortness of breath going back about a week. Seen her medical transcriptionist and she had some tachycardia so they started her on metoprolol. Patient denies diaphoresis, syncope, nausea or vomiting. MD Complaint: chest pain Onset/Timin -: minutes(s) Onset: during rest Pain Location: substernal Pain Radiation: back Severity: moderate Quality: heaviness Consistency: constant Improves With: nothing Worsens With: nothing Context: new medications Anginal Symptoms: dyspnea (For 1 week) Other Symptoms: cough (For 1 week) Treatments Prior to Arrival: none - Related Data Home Medications Medication Instructions Recorded Confirmed Citalopram Hydrobromide [CeleXA] 20 mg PO 08/05/14 08/01/19 Losartan Potassium 100 mg PO DAILY 08/05/14 08/01/19 Montelukast [Singulair] 10 mg PO 08/05/14 08/01/19 Warfarin Sodium [Coumadin] 5 mg PO MO 08/05/14 08/01/19 Warfarin [Coumadin] 2.5 mg PO SUTUWETHFRSA 08/05/14 08/01/19 Zolpidem Tartrate [Ambien] 10 mg PO 08/05/14 08/01/19 cycloSPORINE [Restasis] 1 applicator BOTH EYES 08/05/14 08/01/19 traMADol HCl [Ultram] 50 - 100 mg PO TID PRN 08/05/14 08/01/19 Naproxen Sodium [Aleve] 220 mg PO Q12HR PRN 10/27/18 08/01/19 Cannabidiol (Cbd) [Epidiolex] 1 tab PO DIRECTED PRN 07/30/19 08/01/19 Cholecalciferol [Vitamin D3 (25 4,000 unit PO DAILY 07/30/19 08/01/19 Mcg = 1000 Iu)] Esomeprazole Magnesium [NexIUM] 40 mg PO HS 07/30/19 08/01/19 Ibuprofen [Advil] 200 mg PO DIRECTED PRN 07/30/19 08/01/19 Magnesium 500 mg PO DAILY 07/30/19 08/01/19 Multivit with Calcium,Iron,Min 1 each PO DAILY 07/30/19 08/01/19 [Women's Multivitamin] Allergies Allergy/AdvReac Type Severity Reaction Status Date / Time Penicillins Allergy Severe throat Verified 08/01/19 08:25 swelling Sulfa (Sulfonamide Allergy Swelling Verified 08/01/19 08:25 Antibiotics) Review of Systems ROS Statement: Those systems with pertinent positive or pertinent negative responses have been documented in the HPI. ROS Other: All systems not noted in ROS Statement are negative. Constitutional: Denies: fever, chills, weakness Respiratory: Reports: as per HPI, cough, dyspnea. Denies: hemoptysis Cardiovascular: Reports: chest pain. Denies: palpitations, orthopnea, edema, syncope Gastrointestinal: Denies: abdominal pain, nausea, vomiting, diarrhea, constipation Genitourinary: Denies: dysuria, hematuria Musculoskeletal: Denies: back pain Skin: Denies: rash Neurological: Denies: headache, weakness, numbness EKG Findings - EKG Results: EKG: interpreted by ERMD, sinus rhythm, normal axis, normal ST/T EKG shows: bradycardia (Rate 58 bpm) - HI, Pacemaker, Normal: Myocardial infarction: septal HI (old age or indeterminate) Past Medical History Past Medical History: Atrial Fibrillation, Asthma, Cancer, Chest Pain / Angina, Deep Vein Thrombosis (DVT), GERD/Reflux, Hearing Disorder / Deafness, Hypertension, Myocardial Infarction ([place]), Pulmonary Embolus (PE) Additional Past Medical History / Comment(s): heart murmur, PE Lt lung 2012, DVT Lt thigh 2012, RECTAL CANCER 2010(NO TX), NONHODGKINS LYMPHOMA 2012 WITH CHEMO. , HX OF POSITIVE TB SKIN TEST WITH TX (1984?)., BACK PAIN. Last Myocardial Infarction Date:: unknown History of Any Multi-Drug Resistant Organisms: None Reported Past Surgical History: Appendectomy, Breast Surgery, Section, Cholecystectomy, Hysterectomy Additional Past Surgical History / Comment(s): IV ACCESS PORT, BREAST BX, LYMPH NODE BX, X2 Past Anesthesia/Blood Transfusion Reactions: No Reported Reaction Additional Past Anesthesia/Blood Transfusion Reaction / Comment(s): DIFFICULTY WAKING UP Past Psychological History: Anxiety, Depression Smoking Status: Never smoker Past Alcohol Use History: Rare Past Drug Use History: Marijuana - Past Family History father Family Medical History: Deep Vein Thrombosis (DVT) Course Vital Signs 08/02/20 08/02/20 08/02/20 03:10 04:14 05:00 Temperature 98.2 F Pulse Rate 60 56 L 58 L Respiratory 16 16 16 Rate Blood Pressure 159/88 100/53 127/63 O2 Sat by Pulse 99 96 Oximetry 08/02/20 05:34 Temperature 97.9 F Pulse Rate 61 Respiratory 16 Rate Blood Pressure 130/60 O2 Sat by Pulse 94 L Oximetry [facility] 75-year-old woman here for chest pain. She has had relief of symptoms with medication here, but given features of her chest pain, will admit for telemetry monitoring, serial cardiac enzymes and cardiology consultation. Disposition Clinical Impression: Chest pain Disposition: ADMITTED IP TO THIS HOSP Condition: Good Instructions (If sedation given, give patient instructions): Chest Pain (ED) Is patient prescribed a controlled substance at d/c from ED?: No Referrals: Sukumar Rosa MD [Primary Care Provider] - 1-2 days
[2020-08-02 03:47] LABS: Basophils # (A) 0.1 k/uL (0-0.2); Basophils % (A) 1 %; Eosinophils # (A) 0.3 k/uL (0-0.7); Eosinophils % (A) 4 %; HCT 37.2 % (34.0-46.0); HGB 11.9 gm/dL (11.4-16.0); Lymphocytes # (A) 1.8 k/uL (1.0-4.8); Lymphocytes % (A) 21 %; MCH 30.1 pg (25.0-35.0); MCHC 32.1 g/dL (31.0-37.0); MCV 93.8 fL (80.0-100.0); Mean Platelet Volume 7.5; Monocytes # (A) 0.4 k/uL (0-1.0); Monocytes % (A) 5 %; Neutrophils # (A) 5.7 k/uL (1.3-7.7); Neutrophils % (A) 67 %; Platelet Count 250 k/uL (150-450); RBC 3.96 m/uL (3.80-5.40); RDW 13.5 % (11.5-15.5); WBC 8.5 k/uL (3.8-10.6)
--- NOTE | 2020-08-02 03:57 | XR ---
EXAM: XR Chest, 1 View CLINICAL HISTORY: ITS.REASON XR Reason: chest pain TECHNIQUE: Frontal view of the chest. COMPARISON: 09/12/2012 FINDINGS: Lungs: Streaky bibasilar opacities consistent with atelectasis. No consolidation. Pleural space: Unremarkable. No pneumothorax. Heart: Unremarkable. No cardiomegaly. Mediastinum: Unremarkable. Bones/joints: Unremarkable. Lines: Right-sided chest port with catheter tip terminating in the low SVC. IMPRESSION: No acute pulmonary process.
[2020-08-02 04:01] LABS: D-Dimer 0.42 mg/L FEU (<0.60); INR 0.9 (<1.2); Prothrombin Time 9.8 sec (9.0-12.0)
[2020-08-02 04:09] LABS: Calcium 9.4 mg/dL (8.4-10.2); Magnesium 1.4 mg/dL (1.6-2.3); Potassium 4.5 mmol/L (3.5-5.1); Total Bilirubin 0.7 mg/dL (0.2-1.3)
[2020-08-02 04:10] LABS: Partial Thromboplastin Time 21.9 sec (22.0-30.0)
[2020-08-02] MEDS ORDERED: MORPHINE SULFATE 4 MG/ML SYRINGE IV PRN (05:35)
[2020-08-02] MEDS ORDERED: NITROGLYCERIN SL TABS 0.4 MG TAB SUBLINGUAL PRN ×2 (05:35→09:32)
[2020-08-02] MEDS ORDERED: SODIUM CHLORIDE 0.9% 1,000 ML IV SCH (05:45)
[2020-08-02] MEDS ORDERED: HEPARIN SODIUM,PORCINE 10,000 UNIT in SODIUM CHLORIDE 0.9% 1,000 ML IRRIGATION PRN (07:00)
[2020-08-02] MEDS ORDERED: HEPARIN SODIUM,PORCINE 2,500 UNIT in SODIUM CHLORIDE 0.9% 250 ML IRRIGATION PRN (07:00)
[2020-08-02] MEDS ORDERED: HEPARIN SODIUM,PORCINE 5,000 UNIT/ML 1 ML VIAL IV ONE (09:00)
[2020-08-02] MEDS ORDERED: HEPARIN SOD,PORK IN 0.45% NACL 25,000 UNIT in 0.45% NACL 1 250ML.BAG IV SCH (09:00)
[2020-08-02] MEDS ORDERED: HEPARIN SODIUM,PORCINE 5,000 UNIT/ML 1 ML VIAL IV PRN (09:00)
[2020-08-02] MEDS ORDERED: ALPRAZolam 0.5 MG TAB PO PRN (09:32)
[2020-08-02] MEDS ORDERED: ASPIRIN 325 MG TAB PO STA (09:32)
[2020-08-02] MEDS ORDERED: SODIUM CHLORIDE 0.9% 1,000 ML in EMPTY BAG 1 BAG IV ONE (09:32)
[2020-08-02] MEDS ORDERED: ALPRAZolam 0.25 MG TAB PO PRN (09:32)
[2020-08-02] MEDS ORDERED: ATORVASTATIN 80 MG TAB PO STA (09:32)
--- NOTE | 2020-08-02 09:40 | P.CRDCN ---
History of Present Illness Consult date: 08/02/20 Consult reason: chest pain History of present illness: HISTORY OF PRESENT ILLNESS This is a 75-year-old female with past medical history of pulmonary embolism and lower extremity DVT, paroxysmal atrial fibrillation on Coumadin and follows with Dr. Awad. 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 Patient has followed with a examination scorer in the past, Dr. Crenshaw in [place] but has not seen him in 5 years. Patient is history that for the past 5-6 months she's had shortness of breath, feeling tired with no motivation. She did see her PCP on to get refills on her medications. An EKG was done and she was told that her heart was racing at the time and was scheduled for an echocardiogram the following week. She does complain of chest pain that she's had for 1-1-1/2 weeks since in the midsternal area with radiation to the left shoulder and across the back. No radiation into the arm. No neck radiation. She states this is been mild but this evening it woke her from sleep and felt very heavy and did not let up. She also states that has a warm feeling in her chest. Patient presented to [facility] emergency center initial troponin was negative with repeat of 3.4. EKG no acute ST-T wave changes. Chest x-ray shows is normal. Creatinine is 1.35 and patient denies history of renal disease. AST 70, ALT 71. Magnesium 1.4. INR 0.9. Amylase and lipase normal. REVIEW OF SYSTEMS Constitutional: No fever, no chills. No weakness, fatigue or lethargy. EENT: No headache. No dizziness. Lungs: Reports shortness of breath, cough, no sputum production. No wheezing. Cardiovascular: Reports chest pain, no lower extremity edema. No palpitations. No paroxysmal nocturnal dyspnea. No orthopnea. No lightheadedness or dizziness. No syncopal episodes. Abdominal: No abdominal pain. No nausea, vomiting. No diarrhea. No constipa tion. No bloody or tarry stools.. No loss of appetite. Genitourinary: No dysuria.. No urinary retention. Musculoskeletal: No myalgias. No muscle weakness, no gait dysfunction, no frequent falls. No back pain. No neck pain. Integumentary: No wounds, no lesions. No rash or pruritus. No unusual bruising. Neurologic: No aphasia. No facial droop. No change in mentation. No head injury. No headache. No paralysis. No paresthesia. Psychiatric: No depression. No anxiety. Endocrine: No abnormal blood sugars. PHYSICAL EXAMINATION Gen: This is a 75-year-old female. Patient's risk and benefits and comfortable. No acute distress. VS: Afebrile, heart rate 64, blood pressure 134/73, pulse ox 96% on room air. HEENT: Head is atraumatic, normocephalic. Pupils equal, round. Sclerae is anicteric. NECK: Supple. No JVD. No lymphadenopathy. No thyromegaly. LUNGS: Clear to auscultation. No wheezes or rhonchi. No intercostal retractions. HEART: Regular rate and rhythm. No murmur. ABDOMEN: Soft. Bowel sounds are present. No masses. No tenderness. EXTREMITIES: No pedal edema. No calf tenderness. Dorsalis pedis +2 bilaterally. NEUROLOGICAL: Patient is awake, alert and oriented x3. Cranial nerves 2 through 12 are grossly intact. ASSESSMENT Non-ST myocardial infarction Paroxysmal atrial fibrillation, currently in normal sinus rhythm History of pulmonary embolism and lower extremity DVT Hypertension PLAN Recommend proceeding with cardiac catheterization. Risks and benefits have been discussed with the patient and she is agreeable to move forward. Heparin drip, aspirin Obtain 2-D echocardiogram and Doppler study to assess cardiac structure and function Further recommendations to follow based upon clinical course Thank you kindly for this consultation. Nurse practitioner note has been reviewed, I agree with documented findings and plan of care. Patient was seen and examined. Past Medical History Past Medical History: Atrial Fibrillation, Asthma, Cancer, Chest Pain / Angina, Deep Vein Thrombosis (DVT), GERD/Reflux, Hearing Disorder / Deafness, Hypertension, Myocardial Infarction ([place]), Pulmonary Embolus ([place]) Additional Past Medical History / Comment(s): heart murmur, PE Lt lung 2012, DVT Lt thigh 2012, RECTAL CANCER 2010(NO TX), NONHODGKINS LYMPHOMA 2012 WITH CHEMO. , HX OF POSITIVE TB SKIN TEST WITH TX (1984?)., BACK PAIN. Last Myocardial Infarction Date:: unknown History of Any Multi-Drug Resistant Organisms: None Reported Past Surgical History: Appendectomy, Breast Surgery, Section, Cholecystectomy, Hysterectomy Additional Past Surgical History / Comment(s): IV ACCESS PORT, BREAST BX, LYMPH NODE BX, X2 Past Anesthesia/Blood Transfusion Reactions: No Reported Reaction Additional Past Anesthesia/Blood Transfusion Reaction / Comment(s): DIFFICULTY WAKING UP Past Psychological History: Anxiety, Depression Smoking Status: Never smoker Past Alcohol Use History: Rare Past Drug Use History: Marijuana Additional Drug Use History / Comment(s): CBD TABLET AND TOPICAL CREAM - Past Family History father Family Medical History: Deep Vein Thrombosis (DVT) Medications and Allergies Home Medications Medication Instructions Recorded Confirmed Type Citalopram Hydrobromide [CeleXA] 20 mg PO HS 08/05/14 08/01/19 History Losartan Potassium 100 mg PO DAILY 08/05/14 08/01/19 History Montelukast [Singulair] 10 mg PO HS 08/05/14 08/01/19 History Warfarin Sodium [Coumadin] 5 mg PO MO 08/05/14 08/01/19 History Warfarin [Coumadin] 2.5 mg PO SUTUWETHFRSA 08/05/14 08/01/19 History Zolpidem Tartrate [Ambien] 10 mg PO HS 08/05/14 08/01/19 History cycloSPORINE [Restasis] 1 applicator BOTH EYES HS 08/05/14 08/01/19 History traMADol HCl [Ultram] 50 - 100 mg PO TID PRN 08/05/14 08/01/19 History Naproxen Sodium [Aleve] 220 mg PO Q12HR PRN 10/27/18 08/01/19 History Cannabidiol (Cbd) [Epidiolex] 1 tab PO DIRECTED PRN 07/30/19 08/01/19 History Cholecalciferol [Vitamin D3 (25 4,000 unit PO DAILY 07/30/19 08/01/19 History Mcg = 1000 Iu)] Esomeprazole Magnesium [NexIUM] 40 mg PO HS 07/30/19 08/01/19 History Ibuprofen [Advil] 200 mg PO DIRECTED PRN 07/30/19 08/01/19 History Magnesium 500 mg PO DAILY 07/30/19 08/01/19 History Multivit with Calcium,Iron,Min 1 each PO DAILY 07/30/19 08/01/19 History [Women's Multivitamin] Allergies Allergy/AdvReac Type Severity Reaction Status Date / Time Penicillins Allergy Severe throat Verified 08/01/19 08:25 swelling Sulfa (Sulfonamide Allergy Swelling Verified 08/01/19 08:25 Antibiotics) Physical Exam Vitals: Vital Signs Temp Pulse Pulse Resp BP BP Pulse Ox 08/02/20 07:31 98.3 F 64 16 134/73 96 08/02/20 05:34 97.9 F 61 16 130/60 94 L 08/02/20 05:00 58 L 16 127/63 08/02/20 04:14 56 L 16 100/53 96 08/02/20 03:10 98.2 F 60 16 159/88 99 Intake and Output 08/01/20 08/02/20 08/02/20 22:59 06:59 14:59 Other: Voiding Method Toilet Weight 68.039 kg 68.039 kg Results 08/02/20 03:36 08/02/20 03:36 Cardiac Enzymes 08/02/20 08/02/20 08/02/20 Range/Units 03:36 03:36 07:06 AST 70 H (14-36) U/L Troponin I 0.015 3.430 H* (0.000-0.034) ng/mL Coagulation 08/02/20 Range/Units 03:36 PT 9.8 (9.0-12.0) sec APTT 21.9 L (22.0-30.0) sec CBC 08/02/20 Range/Units 03:36 WBC 8.5 (3.8-10.6) k/uL RBC 3.96 (3.80-5.40) m/uL Hgb 11.9 (11.4-16.0) gm/dL Hct 37.2 (34.0-46.0) % Plt Count 250 (150-450) k/uL Comprehensive Metabolic Panel 08/02/20 Range/Units 03:36 Sodium 132 L (137-145) mmol/L Potassium 4.5 (3.5-5.1) mmol/L Chloride 101 (98-107) mmol/L Carbon Dioxide 21 L (22-30) mmol/L BUN 36 H (7-17) mg/dL Creatinine 1.35 H (0.52-1.04) mg/dL Glucose 116 H (74-99) mg/dL Calcium 9.4 (8.4-10.2) mg/dL AST 70 H (14-36) U/L ALT 51 H (4-34) U/L Alkaline Phosphatase 78 (38-126) U/L Total Protein 7.0 (6.3-8.2) g/dL Albumin 4.0 (3.5-5.0) g/dL Current Medications Generic Name Dose Route Start Last Admin Trade Name Freq PRN Reason Stop Dose Admin Aspirin 325 mg 08/03/20 09:00 08/02/20 08:36 Aspirin 325 Mg Tab PO 325 mg DAILY CARA Administration Heparin Sodium (Porcine) 4,000 unit 08/02/20 09:00 Heparin Sodium,Porcine 5,000 Unit/Ml 1 Ml Vial IV 08/02/20 09:01 ONCE ONE Heparin Sodium (Porcine) 0 unit 08/02/20 09:00 Heparin Sodium,Porcine 5,000 Unit/Ml 1 Ml Vial IV PER PROTOCOL PRN Low PTT Protocol Sodium Chloride 1,000 mls @ 20 mls/hr 08/02/20 05:45 08/02/20 07:57 Saline 0.9% IV 20 mls/hr .Q24H CARA Administration Heparin Sodium/Sodium Chloride 250 mls @ 8.165 mls/hr 08/02/20 09:00 25,000 unit/ Sodium Chloride IV .Q24H [facility] Protocol 12 UNITS/KG/HR Morphine Sulfate 4 mg 08/02/20 05:35 08/02/20 08:19 Morphine Sulfate 4 Mg/Ml Syringe IV 4 mg Q5M PRN Administration Chest Pain Nitroglycerin 0.4 mg 08/02/20 05:35 08/02/20 08:17 Nitroglycerin Sl Tabs 0.4 Mg Tab SUBLINGUAL 0.4 mg Q5M PRN Administration Chest Pain Intake and Output 08/01/20 08/02/20 08/02/20 22:59 06:59 14:59 Other: Voiding Method Toilet Weight 68.039 kg 68.039 kg Patient Weight 08/03/20 06:59 Weight 68.039 kg 08/02/20 03:36 08/02/20 03:36
[2020-08-02] MEDS ORDERED: LIDOCAINE 1% INJ 10MG/ML (20 ML MDV) ONE (10:32)
[2020-08-02] MEDS ORDERED: fentaNYL (PF) 50 MCG/ML 2 ML AMP ONE (10:33)
[2020-08-02] MEDS ORDERED: HEPARIN SODIUM 1,000 UN/ML (10ML VL) ONE (10:33)
[2020-08-02] MEDS ORDERED: VERAPAMIL 2.5 MG/ML 2 ML AMP ONE (10:33)
[2020-08-02] MEDS ORDERED: IV FLUID CONTINUATION 1,000 ML IV ONE (10:37)
[2020-08-02] MEDS ORDERED: fentaNYL (PF) 50 MCG/ML 2 ML AMP IV ONE (10:45)
[2020-08-02] MEDS ORDERED: MIDAZOLAM 2 MG/2 ML VIAL IV ONE (10:45)
[2020-08-02] MEDS ORDERED: LIDOCAINE 1% INJ 10MG/ML (20 ML MDV) SQ ONE (10:48)
[2020-08-02] MEDS ORDERED: VERAPAMIL SYRINGE (5 MG/10 ML) INTRAARTER ONE (10:50)
[2020-08-02] MEDS ORDERED: IOPAMIDOL-370 125ML BTL INJ ONE (11:05)
[2020-08-02] MEDS ORDERED: RX INFO: IV CONTRAST WAS GIVEN 1 EACH MISC MISCELLANE PRN (11:14)
[2020-08-02] MEDS: SODIUM CHLORIDE 0.9% 1,000 ML IV SCH ×2 (11:44→21:22)
--- NOTE | 2020-08-02 12:53 | P.CARDCATH ---
Date of Procedure: 08/02/20 Preoperative Diagnosis: Non-STEMI Postoperative Diagnosis: Mild to moderate disease without any critical lesions Procedure(s) Performed: Left heart catheterization without left ventriculography Description of Procedure: HISTORY: This is a 75-year-old female with history of hypertension and possible atrial fibrillation with fast who is admitted to the hospital with recurrent chest pains and tightness and positive troponins. EKG did not reveal any acute changes. Patient is advised to have cardiac catheterization. Echo Cardigan showed normal LV function. CONSENT:I have discussed the risks, benefits and alternative therapies for the above-mentioned procedure and for both sedation/analgesia as well as necessary blood product administration, if indicated, as they pertain to this patient. The patient has indicated understanding and acceptance of the risks and procedures discussed. PROCEDURE: Patient was brought to the lab in a fasting state. Patient was given some IV sedation. The right wrist is infiltrated with lidocaine and right radial artery was entered using Seldinger technique. A 6-[place] catheter was left in place and selective coronary arteriography was performed. Patient tolerated the procedure well. He had been was applied for hemostasis. No immediate complications were noted and patient was transferred to [facility] in a stable condition Conscious Sedation: Versed 0.5mg Fentanyl 25 g Duration 23minutes HEMODYNAMICS: The aortic pressure is about 135/70. The left ventricle end- diastolic pressure was 16-17. There was no gradient across the aortic valve SELECTIVE CORONARY ARTERIOGRAPHY: LEFT MAIN: Relatively short and free of any significant occlusive disease THE LEFT ANTERIOR DESCENDING CORONARY ARTERY: . Moderate caliber vessel giving rise to a moderate-sized diagonal. The LAD has diffuse intimal plaque without any significant obstructive disease. THE LEFT CIRCUMFLEX AND IS CORONARY ARTERY: This is a moderate caliber vessel giving rise to moderate caliber obtuse marginal branch. There is a plaque in the origin of occlusive marginal branch and also at the bifurcation point with a luminal narrowing of about 30-40%. No critical lesions are noted THE RIGHT CORONARY ARTERY: . This is a moderate caliber vessel with a diffuse plaque without any critical focal lesions. The distal vessels appeared to be small LEFT VENTRICULOGRAPHY: Performed FINAL IMPRESSION: Diffuse intimal plaque with about 30-40% stenosis involving the OM branch and the bifurcation point of the circumflex. No critical lesions PLAN: Maximum medical therapy and this factor modification PROGNOSIS: Fair
[2020-08-02 14:25] LABS: Appearance,Urine Clear (Clear); Bilirubin,Urine Negative (Negative); Blood,Urine Negative (Negative); Color,Urine Yellow; Glucose,Urine (UA) Negative (Negative); Ketones,Urine Negative (Negative); Leukocyte Esterase,Urine Negative (Negative); Nitrite,Urine Negative (Negative); PH, Urine 6.5 (5.0-8.0); Protein,Urine Negative (Negative); Specific Gravity,Urine 1.021 (1.001-1.035)
[2020-08-02] MEDS ORDERED: CYCLOBENZAPRINE 5 MG TAB PO PRN (16:09)
[2020-08-02] MEDS ORDERED: traMADol 50 MG TAB PO PRN (16:12)
--- NOTE | 2020-08-02 16:48 | ECHOF ---
Referral Reason:chest pain MEASUREMENTS -------- HEIGHT: 157.5 cm WEIGHT: 68.0 kg BP: IVSd: 1.3 cm (0.6 - 1.1) LVIDd: 3.7 cm (3.9 - 5.3) LVPWd: 1.3 cm (0.6 - 1.1) IVSs: 1.5 cm LVIDs: 3.4 cm LVPWs: 1.2 cm LAESV Index (A-L): 33.64 ml/m Ao Diam: 3.0 cm (2.0 - 3.7) AV Cusp: 1.6 cm (1.5 - 2.6) LA Diam: 3.8 cm (2.7 - 3.8) MV EXCURSION: 13.189 mm (> 18.000) MV EF SLOPE: 59 mm/s (70 - 150) EPSS: 0.3 cm MV E Bowen: 0.96 m/s MV DecT: 112 ms MV A Bowen: 0.63 m/s MV E/A Ratio: 1.52 RAP: 10.00 mmHg RVSP: 53.39 mmHg FINDINGS -------- Sinus rhythm. This was a technically good study. The left ventricular size is normal. There is mild concentric left ventricular hypertrophy. Overa ll left ventricular systolic function is low-normal with, an EF between 50 - 55 %. The right ventricle is normal in size. LA is moderately dilated 34-39 ml/m2 The right atrial size is normal. There is mild aortic valve sclerosis. There is no evidence of aortic regurgitation. [id number] mitral regurgitation is present. There is moderate pulmonary hypertension. The right ventricular systolic pressure, as measured by D oppler, is 53.39mmHg. Trace/mild (physiologic) pulmonic regurgitation. The aortic root size is normal. There is no pericardial effusion. CONCLUSIONS -------- 1. The left ventricular size is normal. 2. There is mild concentric left ventricular hypertrophy. 3. Overall left ventricular systolic function is low-normal with, an EF between 50 - 55 %. 4. The right ventricle is normal in size. 5. LA is moderately dilated 34-39 ml/m2 6. The right atrial size is normal. 7. There is mild aortic valve sclerosis. 8. Qiir-[id number] mitral regurgitation is present. 9. There is moderate pulmonary hypertension. 10. The right ventricular systolic pressure, as measured by Doppler, is 53.39mmHg. 11. Trace/mild (physiologic) pulmonic regurgitation. 12. The aortic root size is normal. 13. There is no pericardial effusion. MICA SPREADER: Estela Vergara RDCS
[2020-08-02] MEDS ORDERED: WARFARIN 5 MG TAB PO ONE (17:30)
[2020-08-02] MEDS ORDERED: BENZOCAINE/MENTHOL LOZENG 1 EACH LOZENGE MUCOUS MEM PRN (19:43)
[2020-08-02] MEDS: traMADol 50 MG TAB PO PRN (20:11)
[2020-08-02] MEDS: FAMOTIDINE 20 MG/2 ML VIAL IV SCH (21:15)
[2020-08-03 02:25] LABS: Basophils # (A) 0.1 k/uL (0-0.2); Basophils % (A) 1 %; Eosinophils # (A) 0.2 k/uL (0-0.7); Eosinophils % (A) 3 %; HCT 34.7 % (34.0-46.0); HGB 11.9 gm/dL (11.4-16.0); Lymphocytes # (A) 1.1 k/uL (1.0-4.8); Lymphocytes % (A) 16 %; MCH 32.2 pg (25.0-35.0); MCHC 34.3 g/dL (31.0-37.0); MCV 93.7 fL (80.0-100.0); Mean Platelet Volume 7.4; Monocytes # (A) 0.4 k/uL (0-1.0); Monocytes % (A) 6 %; Neutrophils % (A) 73 %; Platelet Count 209 k/uL (150-450); RDW 13.3 % (11.5-15.5); WBC 6.9 k/uL (3.8-10.6)
[2020-08-03 02:33] LABS: Prothrombin Time 10.5 sec (9.0-12.0)
[2020-08-03 02:49] LABS: Calcium 9.3 mg/dL (8.4-10.2); Magnesium 1.4 mg/dL (1.6-2.3); Potassium 4.8 mmol/L (3.5-5.1)
[2020-08-03 03:36] LABS: Cholesterol 123 mg/dL (<200); HDL Cholesterol 38 mg/dL (40-60); LDL Cholesterol,Calculated 47 mg/dL (0-99); Triglycerides 188 mg/dL (<150)
[2020-08-03] MEDS: MAGNESIUM SULFATE-D5W PMX 1 GM in DEXTROSE/WATER 1 100ML.BAG IVPB SCH ×2 (03:38→04:38)
[2020-08-03] MEDS: traMADol 50 MG TAB PO PRN (04:22)
[2020-08-03] MEDS: LEVOTHYROXINE 25 MCG TAB PO SCH (06:07)
[2020-08-03] MEDS: METOPROLOL SUCCINATE (ER) 25 MG TAB.ER.24H PO SCH (06:11)
[2020-08-03] MEDS: FAMOTIDINE 20 MG/2 ML VIAL IV SCH ×2 (08:31→20:24)
[2020-08-03] MEDS: MAGNESIUM OXIDE 400 MG TAB PO SCH (08:31)
[2020-08-03] MEDS: ATORVASTATIN 20 MG TAB PO SCH (08:32)
[2020-08-03] MEDS: CHOLECALCIFEROL 25 MCG (1000 IU) TABLET PO SCH (08:32)
[2020-08-03] MEDS: CITALOPRAM HYDROBROMIDE 20 MG TAB PO SCH (08:32)
[2020-08-03] MEDS: MULTIVITAMINS, THERA 1 EACH TAB PO SCH (08:32)
[2020-08-03] MEDS ORDERED: ASPIRIN 325 MG TAB PO SCH ×2 (09:00)
--- NOTE | 2020-08-03 12:23 | P.PN ---
Subjective Progress Note Date: 08/03/20 HISTORY OF PRESENT ILLNESS This is a 75-year-old female with past medical history of pulmonary e mbolism and lower extremity DVT, paroxysmal atrial fibrillation on Coumadin and follows with Dr. Awad. 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 Patient has followed with a gericare aide teacher in the past, Dr. Crenshaw in [place] but has not seen him in 5 years. Patient is history that for the past 5-6 months she's had shortness of breath, feeling tired with no motivation. She did see her PCP on to get refills on her medications. An EKG was done and she was told that her heart was racing at the time and was scheduled for an echocardiogram the following week. She does complain of chest pain that she's had for 1-1-1/2 weeks since in the midsternal area with radiation to the left shoulder and across the back. No radiation into the arm. No neck radiation. She states this is been mild but this evening it woke her from sleep and felt very heavy and did not let up. She also states that has a warm feeling in her chest. Patient presented to [facility] emergency center initial troponin was negative with repeat of 3.4. EKG no acute ST-T wave changes. Chest x-ray shows is normal. Creatinine is 1.35 and patient denies history of renal disease. AST 70, ALT 71. Magnesium 1.4. INR 0.9. Amylase and lipase normal. 08/03: Yesterday, patient underwent heart catheterization with Dr. Garcia that revealed diffuse plaque 30-40% stenosis involving the OM branch and bifurcation point of the circumflex. No critical lesions. Plan was for medical therapy. Echocardiogram reveals EF of 50-55%, mild aortic sclerosis, mild to moderate mitral regurgitation, moderate pulmonary hypertension. The patient did go into atrial fibrillation last evening with rate control. Patient started on Toprol-XL 25 mg daily. Patient is on Coumadin and INR has been subtherapeutic, today 1.0. Discussed option of DOAC versus Coumadin but patient states that she wants to continue on Coumadin. She recently had elevated INR for which she decreased the amount of Coumadin she was taking. Today we will plan for 7.5 mg tonight. Repeat BUN 29 creatinine 1.44. Potassium 4.8. Magnesium 1.9 after replacement. PHYSICAL EXAMINATION Gen: This is a 75-year-old female. Patient is resting in bed and appears to be comfortable. No acute distress. VS: Afebrile, heart rate 102, blood pressure 107/55, pulse ox 97% on 2 L nasal cannula. HEENT: Head is atraumatic, normocephalic. Pupils equal, round. Sclerae is anicteric. NECK: Supple. No JVD. No lymphadenopathy. No thyromegaly. LUNGS: Clear to auscultation. No wheezes or rhonchi. No intercostal retractions. HEART: Regular rate and rhythm. No murmur. ABDOMEN: Soft. Bowel sounds are present. No masses. No tenderness. EXTREMITIES: No pedal edema. No calf tenderness. Dorsalis pedis +2 bilaterally. NEUROLOGICAL: Patient is awake, alert and oriented x3. Cranial nerves 2 through 12 are grossly intact. ASSESSMENT Non-ST myocardial infarction ruled out. Positive troponins possibly related to atrial fibrillation Paroxysmal atrial fibrillation, rate controlled History of pulmonary embolism and lower extremity DVT Hypertension PLAN Continue aspirin reduced 81 mg daily, Lipitor 20 mg daily Coumadin 7.5 mg tonight and recheck INR Continue Toprol-XL 25 mg daily Further recommendations to follow based upon clinical course Thank you kindly for this consultation. Nurse practitioner note has been reviewed, I agree with documented findings and plan of care. Patient was seen and examined. Objective - Vital Signs Vital signs: Vital Signs Temp 99.4 F 08/03/20 08:00 Pulse 102 H 08/03/20 08:00 Resp 18 08/03/20 08:00 BP 107/55 08/03/20 08:00 Pulse Ox 97 08/03/20 08:00 Intake & Output 08/02/20 08/03/20 08/03/20 18:59 06:59 18:59 Intake Total 590 540 350 Output Total 300 2500 Balance 290 -1960 350 Weight 68.039 kg 70.5 kg Intake: IV 50 Intake, IV Titration 300 Amount Sodium Chloride 0.9% 1, 300 000 ml @ 75 mls/hr IV . [id number] [facility] Rx#:[id number] Oral 240 540 350 Output: Urine 300 2500 Other: Voiding Method Toilet Toilet # Voids 1 - Labs CBC & Chem 7: 08/03/20 02:12 08/03/20 02:12 Labs: Abnormal Lab Results - Last 24 Hours (Table) 08/03/20 08/03/20 08/03/20 Range/Units 02:12 02:12 02:12 RBC 3.70 L (3.80-5.40) m/uL Sodium 134 L (137-145) mmol/L BUN 29 H (7-17) mg/dL Creatinine 1.44 H (0.52-1.04) mg/dL Glucose 129 H (74-99) mg/dL Magnesium 1.4 L (1.6-2.3) mg/dL Triglycerides 188 H (<150) mg/dL HDL Cholesterol 38 L (40-60) mg/dL
--- NOTE | 2020-08-03 12:39 | P.HPIM ---
History of Present Illness This is a pleasant 75 years old female with multiple medical problems including lymphoma, atrial fibrillation, deep venous thrombosis and pulmonary embolism on on 2012 during her cancer therapy, hypertension, asthma. Presents because of chest pain for 1 week and his been on and off, and the middle of her chest radiating to both arms and to the left elbow and also to the back, one night pain woke her up at 1:30 in the morning, she went to see her PCP Dr. Rosa on Tuesday or and give her medicine and if pain persists and doesn't go way to go to the hospital. Her pain was associated with some shortness of breath. Also patient states that she fell about 2 weeks ago. No recent fall. Vital signs stable. Troponin is elevated 3.47.2. Creatinine 1.35 unknown baseline 1.0. Urinalysis also suspicious of infection EKG showing sinus bradycardia at [address]-T changes, chest x- ray: No acute process. Echocardiogram showed ejection fraction of 50-55% with [id number] mitral regurgitation and moderate pulmonary hypertension Review of Systems CONSTITUTIONAL: No fever, no malaise, no fatigue. HEENT: No recent visual problems or hearing problems. Denied any sore throat. CARDIOVASCULAR: No orthopnea, PND, no palpitations, no syncope. PULMONARY: No shortness of breath, no cough, no hemoptysis. GASTROINTESTINAL: No diarrhea, no nausea, no vomiting, no abdominal pain. Normoactive bowel sounds. NEUROLOGICAL: No headaches, no weakness, no numbness. HEMATOLOGICAL: Denies any bleeding or petechiae. GENITOURINARY: Denies any burning micturition, frequency, or urgency. MUSCULOSKELETAL/RHEUMATOLOGICAL: Denies any joint pain, swelling, or any muscle pain. ENDOCRINE: Denies any polyuria or polydipsia. 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 , HX OF POSITIVE TB SKIN TEST WITH TX (1984?)., BACK PAIN. Last Myocardial Infarction Date:: unknown History of Any Multi-Drug Resistant Organisms: None Reported Past Surgical History: Appendectomy, Breast Surgery, Section, Cholecystectomy, Hysterectomy Additional Past Surgical History / Comment(s): IV ACCESS PORT, BREAST BX, LYMPH NODE BX, X2 Past Anesthesia/Blood Transfusion Reactions: No Reported Reaction Additional Past Anesthesia/Blood Transfusion Reaction / Comment(s): DIFFICULTY WAKING UP Past Psychological History: Anxiety, Depression Smoking Status: Never smoker Past Alcohol Use History: Rare Past Drug Use History: Marijuana Additional Drug Use History / Comment(s): CBD TABLET AND TOPICAL CREAM - Past Family History father Family Medical History: Deep Vein Thrombosis (DVT) Medications and Allergies Home Medications Medication Instructions Recorded Confirmed Type Warfarin Sodium [Coumadin] 2.5 mg PO W/SUPPER 08/05/14 08/02/20 History Zolpidem Tartrate [Ambien] 10 mg PO HS PRN 08/05/14 08/02/20 History traMADol HCl [Ultram] 50 - 100 mg PO TID PRN 08/05/14 08/02/20 History Naproxen Sodium [Aleve] 220 mg PO Q12HR PRN 10/27/18 08/02/20 History Cholecalciferol [Vitamin D3 (25 4,000 unit PO DAILY 07/30/19 08/02/20 History Mcg = 1000 Iu)] Ibuprofen [Advil] 200 mg PO DAILY PRN 07/30/19 08/02/20 History Magnesium 500 mg PO DAILY 07/30/19 08/02/20 History Multivit with Calcium,Iron,Min 1 each PO DAILY 07/30/19 08/02/20 History [Women's Multivitamin] Citalopram Hydrobromide [CeleXA] 40 mg PO DAILY 08/02/20 08/02/20 History Cyclobenzaprine [Flexeril] 5 mg PO TID PRN 08/02/20 08/02/20 History Levocetirizine Dihydrochloride 5 mg PO DAILY PRN 08/02/20 08/02/20 History [Xyzal] Levothyroxine Sodium [Synthroid] 25 mcg PO DAILY 08/02/20 08/02/20 History Losartan/Hydrochlorothiazide 1 tab PO DAILY 08/02/20 08/02/20 History [Losartan-Hctz 100-12.5 mg Tab] Metoprolol Succinate (ER) [Toprol 25 mg PO DAILY 08/02/20 08/02/20 History XL] Nitrofurantoin Macrocrystal 100 mg PO Q12H 08/02/20 08/02/20 History [Nitrofurantoin] Simvastatin [Zocor] 40 mg PO DAILY 08/02/20 08/02/20 History Allergies Allergy/AdvReac Type Severity Reaction Status Date / Time Penicillins Allergy Severe throat Verified 08/01/19 08:25 swelling Sulfa (Sulfonamide Allergy Swelling Verified 08/01/19 08:25 Antibiotics) Physical Exam Vitals: Vital Signs Temp Pulse Pulse Resp BP BP Pulse Ox 08/02/20 07:31 98.3 F 64 16 134/73 96 08/02/20 05:34 97.9 F 61 16 130/60 94 L 08/02/20 05:00 58 L 16 127/63 08/02/20 04:14 56 L 16 100/53 96 08/02/20 03:10 98.2 F 60 16 159/88 99 Intake and Output 08/01/20 08/02/20 08/02/20 22:59 06:59 14:59 Other: Voiding Method Toilet Weight 68.039 kg 68.039 kg GENERAL: The patient is alert and oriented x3, not in any acute distress. Well developed, well nourished. HEENT: Pupils are round and equally reacting to light. EOMI. No scleral icterus. No conjunctival pallor. Normocephalic, atraumatic. No pharyngeal erythema. No thyromegaly. CARDIOVASCULAR: S1 and S2 present. No murmurs, rubs, or gallops. PULMONARY: Chest is clear to auscultation, no wheezing or crackles. ABDOMEN: Soft, nontender, nondistended, normoactive bowel sounds. No palpable organomegaly. MUSCULOSKELETAL: No joint swelling or deformity. EXTREMITIES: No cyanosis, clubbing, or pedal edema. NEUROLOGICAL: Gross neurological examination did not reveal any focal deficits. SKIN: No rashes. No petechiae Results CBC & Chem 7: 08/03/20 02:12 08/03/20 02:12 Labs: Abnormal Lab Results - Last 24 Hours (Table) 08/02/20 08/02/20 08/02/20 Range/Units 03:36 03:36 07:06 APTT 21.9 L (22.0-30.0) sec Sodium 132 L (137-145) mmol/L Carbon Dioxide 21 L (22-30) mmol/L BUN 36 H (7-17) mg/dL Creatinine 1.35 H (0.52-1.04) mg/dL Glucose 116 H (74-99) mg/dL Magnesium 1.4 L (1.6-2.3) mg/dL AST 70 H (14-36) U/L ALT 51 H (4-34) U/L Troponin I 3.430 H* (0.000-0.034) ng/mL Thrombosis Risk Factor Assmnt - Choose All That Apply Any of the Below Risk Factors Present?: Yes Each Factor Represents 1 point: Obesity (BMI >25) Other Risk Factors: Yes Each Risk Factor Represents 2 Points: Central venous access Each Risk Factor Represents 3 Points: Age 75 years or older Thrombosis Risk Factor Assessment Total Risk Factor Score: 6 Thrombosis Risk Factor Assessment Level: High Risk Assessment and Plan Assessment: Chest pain, rule out cardiac causes Paroxysmal atrial fibrillation on Coumadin [id number] mitral regurgitation and moderate pulmonary hypertension History of lymphoma, she had MALT and follicular lymphoma Asthma, not an active issue Hypertension History of deep venous thrombosis and pulmonary embolism in 2013 during her cancer therapy Plan: This is a pleasant 75 years old female who presents with chest pain. We'll do serial troponin, cardiology consult. Continue with aspirin Labs and medication were reviewed.. Continue same treatment. Continue with symptomatic treatment. Resume home medication. Monitor lytes and vitals. DVT and GI prophylaxis. Further recommendations depends on the clinical course of the patient DVT prophylaxis: Subcutaneous heparin GI Prophylaxis: Pepcid PT/OT: Pending Prognosis is guarded
--- NOTE | 2020-08-03 12:49 | P.PN ---
Subjective This is a pleasant 75 years old female with multiple medical problems including lymphoma, atrial fibrillation, deep venous thrombosis and pulmonary embolism on on 2012 during her cancer therapy, hypertension, asthma. Presents because of chest pain for 1 week and his been on and off, and the middle of her chest radiating to both arms and to the left elbow and also to the back, one night pain woke her up at 1:30 in the morning, she went to see her PCP Dr. Rosa on Tuesday or and give her medicine and if pain persists and doesn't go way to go to the hospital. Her pain was associated with some shortness of breath. Also patient states that she fell about 2 weeks ago. No recent fall. Vital signs stable. Troponin is elevated 3.47.2. Creatinine 1.35 unknown baseline 1.0. Urinalysis also suspicious of infection EKG showing sinus bradycardia at [address]-T changes, chest x- ray: No acute process. Echocardiogram showed ejection fraction of 50-55% with [id number] mitral regurgitation and moderate pulmonary hypertension 08/03/2020 Patient with no chest pain today. 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 Labs are stable except for creatinine went up a little bit 1.35 up to 144 Pipe Finisher evaluated the patient and they recommended to continue with aspirin, Coumadin and other medication We will consult nephrology service Review of Systems CONSTITUTIONAL: No fever, no malaise, no fatigue. HEENT: No recent visual problems or hearing problems. Denied any sore throat. CARDIOVASCULAR: No orthopnea, PND, no palpitations, no syncope. PULMONARY: No shortness of breath, no cough, no hemoptysis. GASTROINTESTINAL: No diarrhea, no nausea, no vomiting, no abdominal pain. Normoactive bowel sounds. NEUROLOGICAL: No headaches, no weakness, no numbness. Active Medications Generic Name Dose Route Start Last Admin Trade Name Freq PRN Reason Stop Dose Admin Alprazolam 0.25 mg 08/02/20 09:32 Alprazolam 0.25 Mg Tab PO Q6HR PRN Mild Anxiety Alprazolam 0.5 mg 08/02/20 09:32 Alprazolam 0.5 Mg Tab PO Q6HR PRN Moderate Anxiety Aspirin 81 mg 08/04/20 09:00 Aspirin 81 Mg PO DAILY CARA Atorvastatin Calcium 20 mg 08/03/20 09:00 08/03/20 08:32 Atorvastatin 20 Mg Tab PO 20 mg DAILY CARA Administration Benzocaine/Menthol 1 each 08/02/20 19:43 08/02/20 20:12 Benzocaine/Menthol Lozeng 1 Each Lozenge MUCOUS MEM 1 each Q4HR PRN Administration Sore Throat Cholecalciferol 25 mcg 08/03/20 09:00 08/03/20 08:32 Cholecalciferol 25 Mcg (1000 Iu) Tablet PO 25 mcg DAILY CARA Administration Citalopram Hydrobromide 40 mg 08/03/20 09:00 08/03/20 08:32 Citalopram Hydrobromide 20 Mg Tab PO 40 mg DAILY CARA Administration Cyclobenzaprine HCl 5 mg 08/02/20 16:09 Cyclobenzaprine 5 Mg Tab PO TID PRN Muscle Spasm Famotidine 20 mg 08/02/20 21:00 08/03/20 08:31 Famotidine 20 Mg/2 Ml Vial IV 20 mg Q12HR CARA Administration Levothyroxine Sodium 25 mcg 08/03/20 06:30 08/03/20 06:07 Levothyroxine 25 Mcg Tab PO 25 mcg DAILY@0630 CARA Administration Magnesium Oxide 400 mg 08/03/20 09:00 08/03/20 08:31 Magnesium Oxide 400 Mg Tab PO 400 mg DAILY CARA Administration Metoprolol Succinate 25 mg 08/03/20 09:00 08/03/20 06:11 Metoprolol Succinate (Er) 25 Mg Tab.Er.24h PO 25 mg DAILY CARA Administration Miscellaneous Information 1 each 08/02/20 11:14 Rx Info: Iv Contrast Was Given 1 Each Misc MISCELLANE 08/04/20 11:14 DAILY PRN Per Protocol Miscellaneous Information 0 each 08/02/20 16:24 Warfarin Per Pharmacy MISCELLANE DIRECTED PRN DOSING PROTOCOL Morphine Sulfate 4 mg 08/02/20 05:35 08/02/20 08:19 Morphine Sulfate 4 Mg/Ml Syringe IV 4 mg Q5M PRN Administration Chest Pain Multivitamins 1 each 08/03/20 09:00 08/03/20 08:32 Multivitamins, Thera 1 Each Tab PO 1 each DAILY CARA Administration Nitroglycerin 0.4 mg 08/02/20 05:35 08/02/20 08:17 Nitroglycerin Sl Tabs 0.4 Mg Tab SUBLINGUAL 0.4 mg Q5M PRN Administration Chest Pain Tramadol HCl 50 mg 08/02/20 16:09 08/03/20 04:22 Tramadol 50 Mg Tab PO 50 mg TID PRN Administration Pain Tramadol HCl 100 mg 08/02/20 16:12 Tramadol 50 Mg Tab PO TID PRN Pain Warfarin Sodium 7.5 mg 08/03/20 18:00 Warfarin 7.5 Mg Tab PO 08/03/20 18:01 ONCE@1800 ONE Protocol Objective - Vital Signs Vital signs: Vital Signs Temp 98.5 F 08/03/20 12:00 Pulse 92 08/03/20 12:00 Resp 20 08/03/20 12:00 BP 123/67 08/03/20 12:00 Pulse Ox 94 L 08/03/20 12:00 Intake & Output 08/02/20 08/03/20 08/03/20 18:59 06:59 18:59 Intake Total 590 540 350 Output Total 300 2500 Balance 290 -1960 350 Weight 68.039 kg 70.5 kg Intake: IV 50 Intake, IV Titration 300 Amount Sodium Chloride 0.9% 1, 300 000 ml @ 75 mls/hr IV . [id number] CARA Rx#:[id number] Oral 240 540 350 Output: Urine 300 2500 Other: Voiding Method Toilet Toilet # Voids 1 - Exam GENERAL: The patient is alert and oriented x3, not in any acute distress. Well developed, well nourished. HEENT: Pupils are round and equally reacting to light. EOMI. No scleral icterus. No conjunctival pallor. Normocephalic, atraumatic. No pharyngeal erythema. No thyromegaly. CARDIOVASCULAR: S1 and S2 present. No murmurs, rubs, or gallops. PULMONARY: Chest is clear to auscultation, no wheezing or crackles. ABDOMEN: Soft, nontender, nondistended, normoactive bowel sounds. No palpable organomegaly. MUSCULOSKELETAL: No joint swelling or deformity. EXTREMITIES: No cyanosis, clubbing, or pedal edema. NEUROLOGICAL: Gross neurological examination did not reveal any focal deficits. SKIN: No rashes. no petechiae. - Labs CBC & Chem 7: 08/03/20 02:12 08/03/20 02:12 Labs: Abnormal Lab Results - Last 24 Hours (Table) 08/03/20 08/03/20 08/03/20 Range/Units 02:12 02:12 02:12 RBC 3.70 L (3.80-5.40) m/uL Sodium 134 L (137-145) mmol/L BUN 29 H (7-17) mg/dL Creatinine 1.44 H (0.52-1.04) mg/dL Glucose 129 H (74-99) mg/dL Magnesium 1.4 L (1.6-2.3) mg/dL Triglycerides 188 H (<150) mg/dL HDL Cholesterol 38 L (40-60) mg/dL Assessment and Plan Assessment: Chest pain, cardiac cath showed 30-40% stenosis of the branch of circumflex artery Paroxysmal atrial fibrillation on Coumadin, with elevated troponin thought to be due to A. 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 cardiology consult recommended to continue with medical management. Continue with aspirin. 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 Discontinue IV fluids and as per nephrology consult Labs and medication were reviewed.. Continue same treatment. Continue with symptomatic treatment. Resume home medication. Monitor lytes and vitals. DVT and GI prophylaxis. Further recommendations depends on the clinical course of the patient DVT prophylaxis: Subcutaneous heparin, while INR is subtherapeutic GI Prophylaxis: Pepcid Prognosis is guarded
[2020-08-03] MEDS ORDERED: WARFARIN 5 MG TAB PO ONE (18:00)
[2020-08-03] MEDS ORDERED: WARFARIN 7.5 MG TAB PO ONE (18:00)
[2020-08-03 20:19] VITALS: RESP 16
[2020-08-03] MEDS: HEPARIN SODIUM,PORCINE 5,000 UNIT/ML 1 ML VIAL SQ SCH (20:24)
[2020-08-04] MEDS: LEVOTHYROXINE 25 MCG TAB PO SCH (06:04)
[2020-08-04 07:10] LABS: Basophils # (A) 0.1 k/uL (0-0.2); Basophils % (A) 1 %; Eosinophils # (A) 0.3 k/uL (0-0.7); Eosinophils % (A) 4 %; HCT 32.8 % (34.0-46.0); HGB 10.8 gm/dL (11.4-16.0); Lymphocytes # (A) 1.8 k/uL (1.0-4.8); Lymphocytes % (A) 23 %; MCH 31.1 pg (25.0-35.0); MCHC 32.9 g/dL (31.0-37.0); MCV 94.5 fL (80.0-100.0); Mean Platelet Volume 7.5; Monocytes # (A) 0.5 k/uL (0-1.0); Monocytes % (A) 6 %; Neutrophils # (A) 5.1 k/uL (1.3-7.7); Neutrophils % (A) 64 %; Platelet Count 202 k/uL (150-450); RBC 3.47 m/uL (3.80-5.40); RDW 13.7 % (11.5-15.5)
[2020-08-04 07:19] LABS: INR 1.1 (<1.2); Prothrombin Time 11.3 sec (9.0-12.0)
[2020-08-04] MEDS: MULTIVITAMINS, THERA 1 EACH TAB PO SCH (08:36)
[2020-08-04] MEDS: MAGNESIUM OXIDE 400 MG TAB PO SCH (08:36)
[2020-08-04] MEDS: CHOLECALCIFEROL 25 MCG (1000 IU) TABLET PO SCH (08:36)
[2020-08-04] MEDS: CITALOPRAM HYDROBROMIDE 20 MG TAB PO SCH (08:36)
[2020-08-04] MEDS: ATORVASTATIN 20 MG TAB PO SCH (08:36)
[2020-08-04] MEDS: METOPROLOL SUCCINATE (ER) 25 MG TAB.ER.24H PO SCH (08:37)
[2020-08-04] MEDS: HEPARIN SODIUM,PORCINE 5,000 UNIT/ML 1 ML VIAL SQ SCH (08:37)
[2020-08-04] MEDS: FAMOTIDINE 20 MG/2 ML VIAL IV SCH (08:37)
[2020-08-04] MEDS ORDERED: ASPIRIN 81 MG PO SCH (09:00)
[2020-08-04 09:10] LABS: Calcium 9.4 mg/dL (8.4-10.2); Potassium 4.7 mmol/L (3.5-5.1)
[2020-08-04 10:34] VITALS: TEMP 98.2
[2020-08-04] MEDS: traMADol 50 MG TAB PO PRN (11:22)
--- NOTE | 2020-08-04 11:50 | P.DS ---
Providers Date of admission: 08/02/20 10:28 Attending physician: Melissa Pandey Consults: 08/02/20 05:35 Consult Physician Routine Consulting Provider: Antonio Jackson Consult Reason/Comments: chest pain Do you want consulting provider notified?: Yes 08/03/20 12:42 Consult Physician Urgent Consulting Provider: Júnior Jarvis Consult Reason/Comments: robbie Do you want consulting provider notified?: Yes Primary care physician: Sukumar Rosa Hospital Course: 75 years old female with multiple medical problems including lymphoma, atrial fibrillation, deep venous thrombosis and pulmonary embolism on on 2012 during her cancer therapy, hypertension, asthma. Presents because of chest pain for 1 week and his been on and off, and the middle of her chest radiating to both arms and to the left elbow and also to the back, one night pain woke her up at 1:30 in the morning, she went to see her PCP Dr. Rosa on Tuesday or and give her medicine and if pain persists and doesn't go way to go to the hospital. Her pain was associated with some shortness of breath. Also patient states that she fell about 2 weeks ago. No recent fall. Vital signs stable. Troponin is elevated 3.47.2. Creatinine 1.35 unknown baseline 1.0. Urinalysis also suspicious of infection EKG showing sinus bradycardia at [address]-T changes, chest x- ray: No acute process. Echocardiogram showed ejection fraction of 50-55% with [id number] mitral regurgitation and moderate pulmonary hypertension 08/03/2020 Patient with no chest pain today. 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 Labs are stable except for creatinine went up a little bit 1.35 up to 144 Project Management evaluated the patient and they recommended to continue with aspirin, Coumadin and other medication We will consult nephrology service. 08/04/2020 Patient's INR remains low patient will be discharged on 5 mg of Coumadin, was on 2.5 mg at home INR need to be checked in about 3-4 days. Patient doesn't have any more chest pain patient is clinically doing well. PHYSICAL EXAMINATION: GENERAL: The patient is alert and oriented x3, not in any acute distress. Well developed, well nourished. HEENT: Pupils are round and equally reacting to light. EOMI. No scleral icterus. No conjunctival pallor. Normocephalic, atraumatic. No pharyngeal erythema. No thyromegaly. CARDIOVASCULAR: S1 and S2 present. No murmurs, rubs, or gallops. PULMONARY: Chest is clear to auscultation, no wheezing or crackles. ABDOMEN: Soft, nontender, nondistended, normoactive bowel sounds. No palpable organomegaly. MUSCULOSKELETAL: No joint swelling or deformity. EXTREMITIES: No cyanosis, clubbing, or pedal edema. NEUROLOGICAL: Gross neurological examination did not reveal any focal deficits. SKIN: No rashes. Chest pain, cardiac cath showed 30-40% stenosis of the branch of circumflex artery, patient didn't undergo any stenting medical management was advised Paroxysmal atrial fibrillation on Coumadin, well controlled heart rate [id number] mitral regurgitation and moderate pulmonary hypertension History of lymphoma, she had MALT and follicular lymphoma Asthma, not an active issue Hypertension History of deep venous thrombosis and pulmonary embolism in 2013 during her cancer therapy Patient Condition at Discharge: Good Plan - Discharge Summary Discharge Rx Participant: No New Discharge Prescriptions: New Warfarin [Coumadin] 5 mg PO ONCE@1800 tab Continue traMADol HCl [Ultram] 50 - 100 mg PO TID PRN PRN Reason: Pain Warfarin Sodium [Coumadin] 2.5 mg PO W/SUPPER Zolpidem Tartrate [Ambien] 10 mg PO HS PRN PRN Reason: Insomnia Naproxen Sodium [Aleve] 220 mg PO Q12HR PRN PRN Reason: Pain Ibuprofen [Advil] 200 mg PO DAILY PRN PRN Reason: Headache Cholecalciferol [Vitamin D3 (25 Mcg = 1000 Iu)] 4,000 unit PO DAILY Multivit with Calcium,Iron,Min [Women's Multivitamin] 1 each PO DAILY Magnesium 500 mg PO DAILY Simvastatin [Zocor] 40 mg PO DAILY Metoprolol Succinate (ER) [Toprol XL] 25 mg PO DAILY Cyclobenzaprine [Flexeril] 5 mg PO TID PRN PRN Reason: Muscle Spasm Citalopram Hydrobromide [CeleXA] 40 mg PO DAILY Levothyroxine Sodium [Synthroid] 25 mcg PO DAILY Levocetirizine Dihydrochloride [Xyzal] 5 mg PO DAILY PRN PRN Reason: Allergy Symptoms Discontinued Nitrofurantoin Macrocrystal [Nitrofurantoin] 100 mg PO Q12H Losartan/Hydrochlorothiazide [Losartan-Hctz 100-12.5 mg Tab] 1 tab PO DAILY Discharge Medication List Warfarin Sodium [Coumadin] 2.5 mg PO W/SUPPER 08/05/14 [History] Zolpidem Tartrate [Ambien] 10 mg PO HS PRN 08/05/14 [History] traMADol HCl [Ultram] 50 - 100 mg PO TID PRN 08/05/14 [History] Naproxen Sodium [Aleve] 220 mg PO Q12HR PRN 10/27/18 [History] Cholecalciferol [Vitamin D3 (25 Mcg = 1000 Iu)] 4,000 unit PO DAILY 07/30/19 [History] Ibuprofen [Advil] 200 mg PO DAILY PRN 07/30/19 [History] Magnesium 500 mg PO DAILY 07/30/19 [History] Multivit with Calcium,Iron,Min [Women's Multivitamin] 1 each PO DAILY 07/30/19 [History] Citalopram Hydrobromide [CeleXA] 40 mg PO DAILY 08/02/20 [History] Cyclobenzaprine [Flexeril] 5 mg PO TID PRN 08/02/20 [History] Levocetirizine Dihydrochloride [Xyzal] 5 mg PO DAILY PRN 08/02/20 [History] Levothyroxine Sodium [Synthroid] 25 mcg PO DAILY 08/02/20 [History] Metoprolol Succinate (ER) [Toprol XL] 25 mg PO DAILY 08/02/20 [History] Simvastatin [Zocor] 40 mg PO DAILY 08/02/20 [History] Warfarin [Coumadin] 5 mg PO ONCE@1800 tab 08/04/20 [Rx] Follow up Appointment(s)/Referral(s): Sukumar Rosa MD [Primary Care Provider] - 3 Days Patient Instructions/Handouts: Chest Pain (ED) Discharge Disposition: HOME SELF-CARE
[2020-08-04 12:51] VITALS: BP 120/43; PULSE 65
--- NOTE | 2020-08-04 13:00 | CONS ---
CONSULTATION REASON FOR CONSULT: Renal failure. HISTORY OF PRESENT ILLNESS: Patient is a 75-year-old female with history of hypertension, DVT and chronic atrial fibrillation. She also has a history of lymphoma. The patient was admitted to the hospital with complaints of chest pain. Her troponin was elevated at 3.47. The patient did have cardiac catheterization on 08/02/2020, which did not show at any significant disease needing intervention. The patient had no critical stenosis and she is maintained on medical therapy. Patient denies any history of kidney diseases. Her serum creatinine was 1.35 on initial admission, increased to 1.4 yesterday and today it is down to 1.14. The patient is status post IV fluids. No significant urinary complaints. UA is completely benign. PAST MEDICAL HISTORY: History of lymphoma, history of atrial fibrillation, PE, hypertension, asthma, hearing loss, history of CO previously, non-Hodgkin's lymphoma in 2012, status post chemotherapy. Positive TB skin test. History of rectal cancer 2010. PAST SURGICAL HISTORY: Appendectomy, breast surgery, , cholecystectomy, hysterectomy. SOCIAL HISTORY: Negative for smoking, drug abuse. The patient does use marijuana. No other drug abuse. MEDICATIONS: Include Coumadin, Ambien, Ultram, Aleve, Advil, magnesium, Celexa, Flexeril, Synthroid, losartan, hydrochlorothiazide, Toprol, nitrofurantoin, Zocor. ALLERGIES: ALLERGIES include PENICILLIN which causes swelling of the throat and SULFA also causes swelling. REVIEW OF SYSTEMS: As per HPI. Other systems negative. EXAMINATION: Patient is comfortable, awake, not in any acute distress. Blood pressure is 110/59, heart rate 61 per minute, she is afebrile. Examination of the heart S1, S2. Examination of the lungs, decreased breath sounds at bases. Abdomen is soft, nontender. Examination of lower extremities shows no evidence of edema. [employer] exam grossly intact. LAB: Show sodium 133, potassium 4.7, chloride 102, BUN 27, creatinine 1.14, hemoglobin 10.8 g/dL UA is completely benign. ASSESSMENT: 1. Acute kidney injury secondary to NSAIDs as patient was taking Advil and Aleve prior to admission. There may have been a prerenal component as well, which has improved with IV hydration. The patient is advised to avoid use of any nonsteroidal anti- inflammatory agents. She can be discharged and follow up as outpatient. 2. Non ST elevation myocardial infarction ruled out. No evidence of critical disease on cardiac catheterization. Troponins were elevated, possibly related to atrial fibrillation. Patient is being followed by Cardiology. 3. History of pulmonary embolism and lower extremity deep venous thrombosis. 4. Hypertension. PLAN: Patient can be discharged from nephrology standpoint. She should follow up as outpatient in 2-3 weeks. She is advised to avoid use of any nonsteroidal anti- inflammatory agents. She may continue with her ALICIA inhibitors and diuretics. MMODL / IJN: [id number] /
--- NOTE | 2020-08-04 15:08 | P.PN ---
Subjective This is a pleasant 75 showed female past medical history significant for pulmonary embolism and lower extremity DVT, paroxysmal atrial fibrillation maintained on Coumadin, lymphoma, hypertension and gastroesophageal reflux disease. She follows with Dr. Crenshaw in [place] for cardiology. She is seen and examined sitting up in the chair in no acute distress. She denies symptoms of chest pain, dizziness, shortness of breath or palpitations. Blood pressure 119/57 heart rate 69 afebrile maintaining oxygen saturation on room ai r. Laboratory data reviewed, WBC 8.0, hemoglobin 10.8, platelets 202, INR 1.1, sodium 133, potassium 4.7 and creatinine 1.14. Currently maintained on aspirin 81 mg daily, atorvastatin 20 mg daily, Toprol 25 mg daily and Coumadin. She is currently maintaining sinus mechanism. GENERAL: Well-appearing, well-nourished and in no acute distress. NECK: Supple without JVD or thyromegaly. LUNGS: Breath sounds clear to auscultation bilaterally. Respiration equal and unlabored. No wheezes, rales or rhonchi. HEART: Regular rate and rhythm without murmurs, rubs or gallops. S1 and S2 heard. EXTREMITIES: Normal range of motion, no edema. No clubbing or cyanosis. Peripheral pulses intact. Right radial access site soft and nontender with no evidence of hematoma or bleeding. ASSESSMENT Non-ST elevated myocardial infarction Paroxysmal atrial fibrillation on Coumadin Nonobstructive coronary artery disease Mitral regurgitation Pulmonary hypertension History of PE and DVT in the past Hypertension PLAN Continue current medical regimen. 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 Nurse Practitioner note has been reviewed, I agree with a documented findings and plan of care. Patient was seen and examined. Objective - Vital Signs Vital signs: Vital Signs Temp 98.2 F 08/04/20 08:00 Pulse 69 08/04/20 08:00 Resp 16 08/04/20 06:05 BP 119/57 08/04/20 08:00 Pulse Ox 96 08/04/20 08:00 Intake & Output 08/03/20 08/04/20 08/04/20 18:59 06:59 18:59 Intake Total 2190 900 Balance 2190 900 Weight 70.7 kg Intake: Oral 2190 900 Other: Voiding Method Toilet Toilet # Voids 2 2 - Labs CBC & Chem 7: 08/04/20 06:29 08/04/20 06:29 Labs: Abnormal Lab Results - Last 24 Hours (Table) 08/04/20 08/04/20 Range/Units 06:29 06:29 RBC 3.47 L (3.80-5.40) m/uL Hgb 10.8 L (11.4-16.0) gm/dL Hct 32.8 L (34.0-46.0) % Sodium 133 L (137-145) mmol/L BUN 27 H (7-17) mg/dL Creatinine 1.14 H (0.52-1.04) mg/dL Glucose 100 H (74-99) mg/dL
[2020-08-04] MEDS ORDERED: WARFARIN 5 MG TAB PO ONE (18:00)
[2020-08-05] MEDS ORDERED: FAMOTIDINE 20 MG/2 ML VIAL IV SCH (09:00)
== END 2020-08-04 14:14 | disposition home or self-care (01) | DRG 287 ==
LOC: EC 03:08 → 6NMEDSUR 05:35 → OBSVTOIN 10:28 → 3SCARD 10:34
PROVIDERS: ADMIT Hospitalist; ATTEND Hospitalist
PROC: 4A023N7 Measurement of Cardiac Sampling and Pressure, Left Heart, Percutaneous Approach (ICD-10-PCS; principal; 2020-08-02 10:12)
PROC: B2111ZZ Fluoroscopy of Multiple Coronary Arteries using Low Osmolar Contrast (ICD-10-PCS; principal; 2020-08-02 10:12)
DX: I25.10 Atherosclerotic heart disease of native coronary artery without angina pectoris (principal); N17.9 Acute kidney failure, unspecified; I48.0 Paroxysmal atrial fibrillation; J45.909 Unspecified asthma, uncomplicated; I10 Essential (primary) hypertension; I27.20 Pulmonary hypertension, unspecified; I34.0 Nonrheumatic mitral (valve) insufficiency; F41.9 Anxiety disorder, unspecified; F32.9 Major depressive disorder, single episode, unspecified; T39.315A Adverse effect of propionic acid derivatives, initial encounter; K21.9 Gastro-esophageal reflux disease without esophagitis; H91.90 Unspecified hearing loss, unspecified ear; Z85.048 Personal history of other malignant neoplasm of rectum, rectosigmoid junction, and anus; Z92.21 Personal history of antineoplastic chemotherapy; Z98.891 History of uterine scar from previous surgery; Z98.890 Other specified postprocedural states; Z86.718 Personal history of other venous thrombosis and embolism; Z86.711 Personal history of pulmonary embolism; Z85.72 Personal history of non-Hodgkin lymphomas; I25.2 Old myocardial infarction; Z90.710 Acquired absence of both cervix and uterus; Z90.49 Acquired absence of other specified parts of digestive tract; Z90.89 Acquired absence of other organs; Z83.2 Family history of diseases of the blood and blood-forming organs and certain disorders involving the immune mechanism; Z79.01 Long term (current) use of anticoagulants; Z79.899 Other long term (current) drug therapy; Z88.2 Allergy status to sulfonamides
CPT/HCPCS: 36415; 71045; 80048; 80053; 80061; 81003; 82150; 83690; 83735; 83880; 84484; 85025; 85379; 85610; 85730; 93005; 93306; 93458; 96374; 96375; 99285

== ENCOUNTER → 2020-08-19 | Outpatient (CLI) | payer MEDICARE ==
--- NOTE | 2020-08-19 11:59 | BD ---
EXAMINATION TYPE: Axial Bone Density DATE OF EXAM: 08/19/2020 COMPARISON: DEXA bone scan May 16, 2017 CLINICAL HISTORY: Height: 5 FT 2 IN Weight: 152 FRAX RISK QUESTIONS: Alcohol (3 or more units per day): NO Family History (Parent hip fracture): NO Glucocorticoids (More than 3mos): NO (Ex: prednisone, prednisolone, methylprednisolone, dexamethasone, and hydrocortisone). History of Fracture in Adulthood: YES Secondary Osteoporosis: 1. Type 1 Diabetes: NO 2. Hyperthyroidism: NO 3. Menopause before 45: NO 4. Malnutrition: NO 5. Chronic liver disease: NO Rheumatoid Arthritis: NO Current Tobacco Use: NO RISK FACTORS HISTORY OF: Family History of Osteoporosis: YES Active: SOMEWHAT Diet low in dairy products/other sources of calcium: NO Postmenopausal woman: TOTAL HYST AGE 46 Take estrogen and/or progesterone medications: TOOK HRT FOR 3 MONTHS FOLLOWING HYST Lost more than 2 inches in height since high school: NO Poor Health: JUST HAD A HEART ATTACK MEDICATIONS: Thyroid Medications: YES Which medication: SYNTHROID How Long: ONE YEAR Additional Medications: SYNTHROID, COUMADIN, CALCIUM, FLEXERALL,LOSARTIN, ULTRAM, SINGULAIR, RESTASIS , NEXIUM, EMLA, CITALOPRAM, AMBIEN, HEART MEDS Additional History: RECTAL CANCER CHEMO ,NON HODGKIN'S LYMPHOMA, EXAM MEASUREMENTS: Bone mineral densitometry was performed using the [employer]. Bone mineral density as measured about the Lumbar spine is: ----- L1-L4(G/cm2): 1.172 T Score Values are as follows: ----- L2: 0.1 ----- L3: 0.7 ----- L4: -0.9 ----- L1-L4: -0.1 Bone mineral density has: INCREASED 3.2 % since study of: 2016 Bone mineral density about the R hip (g/cm2): 0.626 Bone mineral density about the L hip (g/cm2): 0.567 T Score values are as follows: -----R Neck: -3.0 -----L Neck: -3.4 -----R Total: -2.7 -----L Total: -2.8 Bone mineral density has: DECREASED -3.2 % since study of: 2016 IMPRESSION: Osteoporosis (T Score less than -2.5) remains present in both hips. There remains increased fracture risk and therapy is usually indicated based on age. Re-Screen 1-2 years. NOTE: T-SCORE=SD OF THE YOUNG ADULT MEAN.
--- NOTE | 2020-08-20 11:02 | MM ---
Reason for exam: screening (asymptomatic). Last mammogram was performed 1 year and 7 months ago. History: Patient is postmenopausal and has history of other cancer at age 67. Family history of breast cancer in aunt. Benign stereotactic core biopsy of the right breast, May 14, 1998. Excisional biopsy of the left breast. Excisional biopsy of the right breast. Took hormonal contraceptives for 8 years. Physical Findings: A clinical breast exam by your physician is recommended on an annual basis and results should be correlated with mammographic findings. MG 3D Screening Mammo W/Cad Bilateral CC and MLO view(s) were taken. Prior study comparison: January 23, 2019, bilateral MG 3d diag mammo w/cad ABIGAIL. May 16, 2017, bilateral MG 3d screening mammo w/cad. The breast tissue is heterogeneously dense. This may lower the sensitivity of mammography. No significant changes when compared with prior studies. ASSESSMENT: Benign, BI-RAD 2 RECOMMENDATION: Routine screening mammogram of both breasts in 1 year.
== END | disposition home or self-care (01) ==
LOC: RADMAMWWP 09:37
PROVIDERS: ATTEND Family Medicine
DX: Z12.31 Encounter for screening mammogram for malignant neoplasm of breast (principal); M81.0 Age-related osteoporosis without current pathological fracture
CPT/HCPCS: 77063; 77067; 77080

== ENCOUNTER → 2020-09-04 | Outpatient (CLI) | payer MEDICARE ==
--- NOTE | 2020-09-04 13:08 | CT ---
EXAMINATION TYPE: CT angio chest DATE OF EXAM: 09/04/2020 12:48 PM COMPARISON: CTA chest dated 10/27/2018. HISTORY: Shortness of breath. CT DLP: 220.6 mGycm Automated exposure control for dose reduction was used. CONTRAST: CTA scan of the thorax is performed with IV Contrast, patient injected with 65 mL of Isovue 370, pulm onary embolism protocol. MIP images are created and reviewed. FINDINGS: LUNGS: Mild to moderate linear scarring and/or atelectasis in the lower lungs. No suspicious nodules or masses. No pleural effusion or pneumothorax seen bilaterally. No suspicious focal consolidation or groundglass opacity. Low lung volumes redemonstrated. MEDIASTINUM: There is satisfactory enhancement of the pulmonary artery and its branches, there is no CT evidence for pulmonary embolism. There are no greater than 1 cm hilar or mediastinal lymph nodes. A few scattered prominent but subcentimeter thoracic lymph nodes. Mild cardiomegaly. Moderate to s evere coronary artery calcification in the LAD and left circumflex distribution. Reflux of contrast i nto IVC and hepatic veins. No pericardial effusion is seen. Stable right internal jugular Mediport ca theter. OTHER: Dystrophic calcifications left breast axial image 42. IMPRESSION: No CT evidence for acute pulmonary embolism. No suspicious acute pulmonary process.
== END | disposition home or self-care (01) ==
LOC: RADCTMAIN 11:17
PROVIDERS: ATTEND Internal Medicine Hematology & Oncology
DX: R06.02 Shortness of breath (principal)
CPT/HCPCS: 71275; Q9967

== ENCOUNTER 2020-12-23 22:26 | Inpatient (IN) | payer MEDICARE ==
[2020-12-23] MEDS ORDERED: METOPROLOL TARTRATE 5 MG/5 ML VIAL IVP STA (22:43)
[2020-12-23] MEDS ORDERED: SODIUM CHLORIDE 0.9% 1,000 ML IV STA ×2 (22:43→23:48)
--- NOTE | 2020-12-23 22:43 | ED ---
SOB HPI - General Chief Complaint: Shortness of Breath Stated Complaint: SOB Time Seen by Provider: 12/23/20 22:37 Source: patient, EMS, RN notes reviewed, old records reviewed Mode of arrival: EMS Limitations: no limitations - History of Present Illness Initial Comments: This is a 75-year-old female DF for evaluation patient Dese for evaluation of not feeling well possible medication reaction. Patient states she is on antibiotics for urinary tract infection which is old scheduled for admission now has a dry mouth. Some shortness of breath weakness and a dry cough. Patient admits increased weakness decreased appetite decreased oral intake. Decreased activity level. Patient's blaming all this on antibiotics that she is recently decided. Patient has calm. Medical history significant for heart disease atrial fibrillation asthma high blood pressure LA PE Complaint: shortness of breath, anxiety (Dry mouth) -: days(s) Radiation: other (No pain) Severity: moderate Severity scale (1-10): 5 Consistency: constant Improves With: nothing Worsens With: exertion, movement, coughing Known History Of: asthma, congestive heart failure Context: recent URI, anxiety Associated Symptoms: denies other symptoms, nausea/vomiting Treatments Prior to Arrival: none - Related Data Home Medications Medication Instructions Recorded Confirmed Warfarin Sodium [Coumadin] 2.5 mg PO W/SUPPER 08/05/14 08/02/20 Zolpidem Tartrate [Ambien] 10 mg PO HS PRN 08/05/14 08/02/20 traMADol HCl [Ultram] 50 - 100 mg PO TID PRN 08/05/14 08/02/20 Naproxen Sodium [Aleve] 220 mg PO Q12HR PRN 10/27/18 08/02/20 Cholecalciferol [Vitamin D3 (25 4,000 unit PO DAILY 07/30/19 08/02/20 Mcg = 1000 Iu)] Ibuprofen [Advil] 200 mg PO DAILY PRN 07/30/19 08/02/20 Magnesium 500 mg PO DAILY 07/30/19 08/02/20 Multivit with Calcium,Iron,Min 1 each PO DAILY 07/30/19 08/02/20 [Women's Multivitamin] Citalopram Hydrobromide [CeleXA] 40 mg PO DAILY 08/02/20 08/02/20 Cyclobenzaprine [Flexeril] 5 mg PO TID PRN 08/02/20 08/02/20 Levocetirizine Dihydrochloride 5 mg PO DAILY PRN 08/02/20 08/02/20 [Xyzal] Levothyroxine Sodium [Synthroid] 25 mcg PO DAILY 08/02/20 08/02/20 Metoprolol Succinate (ER) [Toprol 25 mg PO DAILY 08/02/20 08/02/20 XL] Simvastatin [Zocor] 40 mg PO DAILY 08/02/20 08/02/20 Previous Rx's Medication Instructions Recorded Warfarin [Coumadin] 5 mg PO ONCE@1800 tab 08/04/20 Allergies Allergy/AdvReac Type Severity Reaction Status Date / Time Penicillins Allergy Severe throat Verified 12/23/20 22:33 swelling Sulfa (Sulfonamide Allergy Swelling Verified 12/23/20 22:33 Antibiotics) Review of Systems ROS Statement: Those systems with pertinent positive or pertinent negative responses have been documented in the HPI. ROS Other: All systems not noted in ROS Statement are negative. 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 , HX OF POSITIVE TB SKIN TEST WITH TX (1984?)., BACK PAIN. Last Myocardial Infarction Date:: unknown History of Any Multi-Drug Resistant Organisms: None Reported Past Surgical History: Appendectomy, Breast Surgery, Section, Cholecystectomy, Hysterectomy Additional Past Surgical History / Comment(s): IV ACCESS PORT, BREAST BX, LYMPH NODE BX, X2 Past Anesthesia/Blood Transfusion Reactions: No Reported Reaction Additional Past Anesthesia/Blood Transfusion Reaction / Comment(s): DIFFICULTY WAKING UP Past Psychological History: Anxiety, Depression Smoking Status: Never smoker Past Alcohol Use History: Rare Past Drug Use History: None Reported - Past Family History father Family Medical History: Deep Vein Thrombosis (DVT) General Exam Limitations: no limitations General appearance: alert, in no apparent distress, anxious, lethargic Head exam: Present: atraumatic, normocephalic, normal inspection Eye exam: Present: normal appearance, PERRL, EOMI. Absent: scleral icterus, conjunctival injection, periorbital swelling ENT exam: Present: normal exam, mucous membranes dry Neck exam: Present: normal inspection. Absent: tenderness, meningismus, lymphadenopathy Respiratory exam: Present: normal lung sounds bilaterally. Absent: respiratory distress, wheezes, rales, rhonchi, stridor Cardiovascular Exam: Present: regular rate, irregular rhythm, normal heart sounds. Absent: systolic murmur, diastolic murmur, rubs, gallop, clicks GI/Abdominal exam: Present: soft, normal bowel sounds. Absent: distended, tenderness, guarding, rebound, rigid Extremities exam: Present: normal inspection, full ROM, normal capillary refill. Absent: tenderness, pedal edema, joint swelling, calf tenderness Back exam: Present: normal inspection Neurological exam: Present: alert, oriented X3, CN II-XII intact Psychiatric exam: Present: normal affect, normal mood Skin exam: Present: warm, dry, intact, normal color. Absent: rash Course Vital Signs 12/23/20 12/23/20 12/23/20 22:29 22:35 23:01 Pulse Rate 101 H 98 Respiratory 20 20 18 Rate Blood Pressure 100/69 104/64 O2 Sat by Pulse 100 100 Oximetry 12/24/20 12/24/20 12/24/20 00:05 01:10 01:43 Pulse Rate 81 80 82 Respiratory 16 16 18 Rate Blood Pressure 87/58 71/46 81/54 O2 Sat by Pulse 95 96 96 Oximetry 12/24/20 12/24/20 12/24/20 02:17 02:35 02:48 Pulse Rate 78 55 L 52 L Respiratory 18 18 18 Rate Blood Pressure 78/50 66/42 67/47 O2 Sat by Pulse 98 95 98 Oximetry 12/24/20 12/24/20 12/24/20 02:54 03:19 03:53 Pulse Rate 60 58 L 80 Respiratory 18 18 18 Rate Blood Pressure 71/37 72/47 58/40 O2 Sat by Pulse 97 97 97 Oximetry 12/24/20 12/24/20 04:14 04:49 Pulse Rate 75 71 Respiratory 18 18 Rate Blood Pressure 117/32 82/40 O2 Sat by Pulse 98 97 Oximetry - Reevaluation(s) Reevaluation #1: 12/24/20 03:30 Medical record is reviewed Reevaluation #2: 12/24/20 03:30 Patient heart rate and blood pressure dropped, continue to bolus IV fluid Reevaluation #3: 12/24/20 03:30 Patient moved to more higher monitored bed as she is getting weaker and weaker but still maintaining her airway speaking and talking, maintains a good mode Reevaluation #4: 12/24/20 03:30 Patient continued to drop blood pressure became bradycardic and eventually unresponsive, ACS protocol was initiated Patient needed to be intubated with central line placed 12/24/20 04:41 Patient has significant worsening of labs intermittently from initial evaluation 2 current Despite aggressive fluid hydration Reevaluation #5: 12/24/20 03:30 Spoke with currently at bedside and updated regarding patient's findings here in the ER Procedures - Central Line Placement Right IJ Consent Obtained: emergent situation Patient Placed on Monitor/Pulse Ox: Yes MD Prep: mask, gown, gloves Central Line Prep: Povidone-Iodine 1%, sterile drapes applied Local Anesthesia Used: Lidocaine 1% Ultrasound Used for Placement: Yes Complications: hematoma at puncture site, other (failed to pass guidewire) Left IJ Consent Obtained: emergent situation Patient Placed on Monitor/Pulse Ox: Yes MD Prep: mask, gloves Central Line Prep: Povidone-Iodine 1%, sterile drapes applied Ultrasound Used for Placement: Yes Complications: other (failure to pass the guide wire) Left Femoral Consent Obtained: emergent situation Patient Placed on Monitor/Pulse Ox: Yes MD Prep: mask, gown, gloves Central Line Prep: Povidone-Iodine 1%, sterile drapes applied Local Anesthesia Used: Lidocaine 1%, with Epi Ultrasound Used for Placement: Yes Central Line Lumen Inserted: triple Central Line Position: good blood return, all ports aspirated, flushed, capped, sutured in place with 3-0 nylon Dressing Applied: Tegaderm Post Procedure X-Ray: tip of catheter in good position Patient Tolerated Procedure: well Complications: none - Intubation Sedative: Versed Paralytic: Succinylcholine Laryngoscope: Shaunna Size: 4 ET Tube Size: 7.5 ET Tube Uncuffed: No Tube Secured Location: teeth Tube Placement Confirmation: visualized tube passing through cords, equal breath sounds bilaterally, no breath sounds over epigastrium, confirmation by capnometry Patient Tolerated Procedure: well Intubation Complications: none Medical Decision Making - Medical Decision Making 75 female DF for evaluation initially presenting for medication reaction and cough shortness of breath and weakness. Patient thought she was having reaction to Macrobid, patient presented in A. fib with RVR wide-complex, pressure began to drop the ER stay despite aggressive fluid resuscitation continued to drop and then heart rate began to drop. Patient did have an episode of cardiopulmonary arrest with shortness with dentist responding adequately to compressions and epinephrine. Central line placed patient was intubated started on aggressive cardiopulmonary support - Lab Data Result diagrams: 12/24/20 03:20 12/24/20 03:20 Lab Results 12/23/20 12/23/20 12/23/20 Range/Units 22:55 22:55 22:55 WBC 11.0 H (3.8-10.6) k/uL RBC 3.93 (3.80-5.40) m/uL Hgb 12.0 (11.4-16.0) gm/dL Hct 36.1 (34.0-46.0) % MCV 91.9 (80.0-100.0) fL MCH 30.6 (25.0-35.0) pg MCHC 33.3 (31.0-37.0) g/dL RDW 15.1 (11.5-15.5) % Plt Count 232 (150-450) k/uL MPV 8.0 Neutrophils % 74 % Lymphocytes % 14 % Monocytes % 8 % Eosinophils % 1 % Basophils % 1 % Neutrophils # 8.2 H (1.3-7.7) k/uL Lymphocytes # 1.6 (1.0-4.8) k/uL Monocytes # 0.9 (0-1.0) k/uL Eosinophils # 0.1 (0-0.7) k/uL Basophils # 0.1 (0-0.2) k/uL Hypochromasia PT 13.3 H (9.0-12.0) sec INR 1.3 H (<1.2) APTT 23.1 (22.0-30.0) sec Sample Site ABG pH (7.35-7.45) ABG pCO2 (35-45) mmHg ABG pO2 (83-108) mmHg ABG HCO3 (21-25) mmol/L ABG Total CO2 (19-24) mmol/L ABG O2 Saturation (94-97) % ABG Base Excess mmol/L Bryson Test VBG pH (7.31-7.41) VBG pCO2 (37-51) mmHg VBG HCO3 (24-28) mmol/L FiO2 % Sodium 128 L (137-145) mmol/L Potassium 3.6 (3.5-5.1) mmol/L Chloride 94 L (98-107) mmol/L Carbon Dioxide 24 (22-30) mmol/L Anion Gap 10 mmol/L BUN 31 H (7-17) mg/dL Creatinine 1.56 H (0.52-1.04) mg/dL Est GFR (CKD-EPI)AfAm 37 (>60 ml/min/1.73 sqM) Est GFR (CKD-EPI)NonAf 32 (>60 ml/min/1.73 sqM) Glucose 143 H (74-99) mg/dL POC Glucose (mg/dL) (75-99) mg/dL POC Glu Athletics Teacher ID Plasma Lactic Acid Mt (0.7-2.0) mmol/L Calcium 8.5 (8.4-10.2) mg/dL Phosphorus 2.9 (2.5-4.5) mg/dL Magnesium 2.1 (1.6-2.3) mg/dL Total Bilirubin 0.9 (0.2-1.3) mg/dL AST 230 H (14-36) U/L ALT 475 H (4-34) U/L Alkaline Phosphatase 127 H (38-126) U/L Creatine Kinase 50 (30-135) U/L CK-MB (CK-2) (0.0-2.4) ng/mL Troponin I (0.000-0.034) ng/mL NT-Pro-B Natriuret Pep pg/mL Total Protein 6.0 L (6.3-8.2) g/dL Albumin 3.5 (3.5-5.0) g/dL Urine Color Urine Appearance (Clear) Urine pH (5.0-8.0) Ur Specific Melbeta (1.001-1.035) Urine Protein (Negative) Urine Glucose (UA) (Negative) Urine Ketones (Negative) Urine Blood (Negative) Urine Nitrite (Negative) Urine Bilirubin (Negative) Urine Urobilinogen (<2.0) mg/dL Ur Leukocyte Esterase (Negative) Urine RBC (0-5) /hpf Urine WBC (0-5) /hpf Urine WBC Clumps (None) /hpf Ur Squamous Epith Cells (0-4) /hpf Urine Bacteria (None) /hpf Hyaline Casts (0-2) /lpf Urine Mucus (None) /hpf 12/23/20 12/23/20 12/24/20 Range/Units 22:55 22:55 02:07 WBC (3.8-10.6) k/uL RBC (3.80-5.40) m/uL Hgb (11.4-16.0) gm/dL Hct (34.0-46.0) % MCV (80.0-100.0) fL MCH (25.0-35.0) pg MCHC (31.0-37.0) g/dL RDW (11.5-15.5) % Plt Count (150-450) k/uL MPV Neutrophils % % Lymphocytes % % Monocytes % % Eosinophils % % Basophils % % Neutrophils # (1.3-7.7) k/uL Lymphocytes # (1.0-4.8) k/uL Monocytes # (0-1.0) k/uL Eosinophils # (0-0.7) k/uL Basophils # (0-0.2) k/uL Hypochromasia PT (9.0-12.0) sec INR (<1.2) APTT (22.0-30.0) sec Sample Site ABG pH (7.35-7.45) ABG pCO2 (35-45) mmHg ABG pO2 (83-108) mmHg ABG HCO3 (21-25) mmol/L ABG Total CO2 (19-24) mmol/L ABG O2 Saturation (94-97) % ABG Base Excess mmol/L Bryson Test VBG pH (7.31-7.41) VBG pCO2 (37-51) mmHg VBG HCO3 (24-28) mmol/L FiO2 % Sodium (137-145) mmol/L Potassium (3.5-5.1) mmol/L Chloride (98-107) mmol/L Carbon Dioxide (22-30) mmol/L Anion Gap mmol/L BUN (7-17) mg/dL Creatinine (0.52-1.04) mg/dL Est GFR (CKD-EPI)AfAm (>60 ml/min/1.73 sqM) Est GFR (CKD-EPI)NonAf (>60 ml/min/1.73 sqM) Glucose (74-99) mg/dL POC Glucose (mg/dL) (75-99) mg/dL POC Glu Athletics Teacher ID Plasma Lactic Acid Mt (0.7-2.0) mmol/L Calcium (8.4-10.2) mg/dL Phosphorus (2.5-4.5) mg/dL Magnesium (1.6-2.3) mg/dL Total Bilirubin (0.2-1.3) mg/dL AST (14-36) U/L ALT (4-34) U/L Alkaline Phosphatase (38-126) U/L Creatine Kinase (30-135) U/L CK-MB (CK-2) <0.2 (0.0-2.4) ng/mL Troponin I <0.012 (0.000-0.034) ng/mL NT-Pro-B Natriuret Pep 2490 pg/mL Total Protein (6.3-8.2) g/dL Albumin (3.5-5.0) g/dL Urine Color Yellow Urine Appearance Cloudy H (Clear) Urine pH 6.0 (5.0-8.0) Ur Specific Melbeta 1.016 (1.001-1.035) Urine Protein 2+ H (Negative) Urine Glucose (UA) Negative (Negative) Urine Ketones Negative (Negative) Urine Blood Negative (Negative) Urine Nitrite Negative (Negative) Urine Bilirubin Negative (Negative) Urine Urobilinogen <2.0 (<2.0) mg/dL Ur Leukocyte Esterase Trace H (Negative) Urine RBC 1 (0-5) /hpf Urine WBC 9 H (0-5) /hpf Urine WBC Clumps Rare H (None) /hpf Ur Squamous Epith Cells <1 (0-4) /hpf Urine Bacteria Rare H (None) /hpf Hyaline Casts 56 H (0-2) /lpf Urine Mucus Rare H (None) /hpf 12/24/20 12/24/20 12/24/20 Range/Units 02:41 03:20 03:20 WBC 13.7 H (3.8-10.6) k/uL RBC 4.26 (3.80-5.40) m/uL Hgb 12.3 (11.4-16.0) gm/dL Hct 41.0 (34.0-46.0) % MCV 96.1 (80.0-100.0) fL MCH 28.8 (25.0-35.0) pg MCHC 30.0 L (31.0-37.0) g/dL RDW 15.2 (11.5-15.5) % Plt Count 248 (150-450) k/uL MPV 8.3 Neutrophils % 66 % Lymphocytes % 23 % Monocytes % 7 % Eosinophils % 1 % Basophils % 0 % Neutrophils # 9.1 H (1.3-7.7) k/uL Lymphocytes # 3.1 (1.0-4.8) k/uL Monocytes # 1.0 (0-1.0) k/uL Eosinophils # 0.1 (0-0.7) k/uL Basophils # 0.1 (0-0.2) k/uL Hypochromasia Moderate PT (9.0-12.0) sec INR (<1.2) APTT (22.0-30.0) sec Sample Site ABG pH (7.35-7.45) ABG pCO2 (35-45) mmHg ABG pO2 (83-108) mmHg ABG HCO3 (21-25) mmol/L ABG Total CO2 (19-24) mmol/L ABG O2 Saturation (94-97) % ABG Base Excess mmol/L Bryson Test VBG pH (7.31-7.41) VBG pCO2 (37-51) mmHg VBG HCO3 (24-28) mmol/L FiO2 % Sodium 129 L (137-145) mmol/L Potassium 4.3 (3.5-5.1) mmol/L Chloride 101 (98-107) mmol/L Carbon Dioxide 16 L (22-30) mmol/L Anion Gap 12 mmol/L BUN 27 H (7-17) mg/dL Creatinine 1.78 H (0.52-1.04) mg/dL Est GFR (CKD-EPI)AfAm 32 (>60 ml/min/1.73 sqM) Est GFR (CKD-EPI)NonAf 27 (>60 ml/min/1.73 sqM) Glucose 215 H (74-99) mg/dL POC Glucose (mg/dL) 137 H (75-99) mg/dL POC Glu Athletics Teacher ID Katarzyna Morris Plasma Lactic Acid Mt (0.7-2.0) mmol/L Calcium 6.9 L (8.4-10.2) mg/dL Phosphorus 4.0 (2.5-4.5) mg/dL Magnesium 2.1 (1.6-2.3) mg/dL Total Bilirubin 1.0 (0.2-1.3) mg/dL AST 257 H (14-36) U/L ALT 416 H (4-34) U/L Alkaline Phosphatase 178 H (38-126) U/L Creatine Kinase (30-135) U/L CK-MB (CK-2) (0.0-2.4) ng/mL Troponin I (0.000-0.034) ng/mL NT-Pro-B Natriuret Pep pg/mL Total Protein 5.2 L (6.3-8.2) g/dL Albumin 2.8 L (3.5-5.0) g/dL Urine Color Urine Appearance (Clear) Urine pH (5.0-8.0) Ur Specific Melbeta (1.001-1.035) Urine Protein (Negative) Urine Glucose (UA) (Negative) Urine Ketones (Negative) Urine Blood (Negative) Urine Nitrite (Negative) Urine Bilirubin (Negative) Urine Urobilinogen (<2.0) mg/dL Ur Leukocyte Esterase (Negative) Urine RBC (0-5) /hpf Urine WBC (0-5) /hpf Urine WBC Clumps (None) /hpf Ur Squamous Epith Cells (0-4) /hpf Urine Bacteria (None) /hpf Hyaline Casts (0-2) /lpf Urine Mucus (None) /hpf 12/24/20 12/24/20 12/24/20 Range/Units 03:20 03:20 03:46 WBC (3.8-10.6) k/uL RBC (3.80-5.40) m/uL Hgb (11.4-16.0) gm/dL Hct (34.0-46.0) % MCV (80.0-100.0) fL MCH (25.0-35.0) pg MCHC (31.0-37.0) g/dL RDW (11.5-15.5) % Plt Count (150-450) k/uL MPV Neutrophils % % Lymphocytes % % Monocytes % % Eosinophils % % Basophils % % Neutrophils # (1.3-7.7) k/uL Lymphocytes # (1.0-4.8) k/uL Monocytes # (0-1.0) k/uL Eosinophils # (0-0.7) k/uL Basophils # (0-0.2) k/uL Hypochromasia PT (9.0-12.0) sec INR (<1.2) APTT (22.0-30.0) sec Sample Site rrad ABG pH 7.07 L* (7.35-7.45) ABG pCO2 46 H (35-45) mmHg ABG pO2 78 L (83-108) mmHg ABG HCO3 13 L (21-25) mmol/L ABG Total CO2 15 L (19-24) mmol/L ABG O2 Saturation 86.4 L (94-97) % ABG Base Excess -16.8 mmol/L Bryson Test Yes VBG pH 7.10 L* (7.31-7.41) VBG pCO2 48 (37-51) mmHg VBG HCO3 14 L (24-28) mmol/L FiO2 100 % Sodium (137-145) mmol/L Potassium (3.5-5.1) mmol/L Chloride (98-107) mmol/L Carbon Dioxide (22-30) mmol/L Anion Gap mmol/L BUN (7-17) mg/dL Creatinine (0.52-1.04) mg/dL Est GFR (CKD-EPI)AfAm (>60 ml/min/1.73 sqM) Est GFR (CKD-EPI)NonAf (>60 ml/min/1.73 sqM) Glucose (74-99) mg/dL POC Glucose (mg/dL) (75-99) mg/dL POC Glu Athletics Teacher ID Plasma Lactic Acid Mt 5.4 H* (0.7-2.0) mmol/L Calcium (8.4-10.2) mg/dL Phosphorus (2.5-4.5) mg/dL Magnesium (1.6-2.3) mg/dL Total Bilirubin (0.2-1.3) mg/dL AST (14-36) U/L ALT (4-34) U/L Alkaline Phosphatase (38-126) U/L Creatine Kinase (30-135) U/L CK-MB (CK-2) (0.0-2.4) ng/mL Troponin I (0.000-0.034) ng/mL NT-Pro-B Natriuret Pep pg/mL Total Protein (6.3-8.2) g/dL Albumin (3.5-5.0) g/dL Urine Color Urine Appearance (Clear) Urine pH (5.0-8.0) Ur Specific Melbeta (1.001-1.035) Urine Protein (Negative) Urine Glucose (UA) (Negative) Urine Ketones (Negative) Urine Blood (Negative) Urine Nitrite (Negative) Urine Bilirubin (Negative) Urine Urobilinogen (<2.0) mg/dL Ur Leukocyte Esterase (Negative) Urine RBC (0-5) /hpf Urine WBC (0-5) /hpf Urine WBC Clumps (None) /hpf Ur Squamous Epith Cells (0-4) /hpf Urine Bacteria (None) /hpf Hyaline Casts (0-2) /lpf Urine Mucus (None) /hpf - EKG Data -: EKG Interpreted by Me (EKG is A. fib with RVR 139 QRS 192 QTC 693) - Radiology Data Radiology results: report reviewed (Chest x-ray shows right lobe atelectasis family. Chest x-ray shows positive ET tube placement), image reviewed Critical Care Time Critical Care Time: Yes Total Critical Care Time: 95 Disposition Clinical Impression: NSTEMI (non-ST elevated myocardial infarction), Acute exacerbation of chronic obstructive pulmonary disease, Acute respiratory failure, Acute pulmonary edema, Congestive heart failure, Lactic acidosis, Shock, Cardiogenic shock, Septic shock, UTI (urinary tract infection) Disposition: ADMITTED IP TO THIS HOSP Condition: Critical Is patient prescribed a controlled substance at d/c from ED?: No Referrals: Sukumar Rosa MD [Primary Care Provider] - 1-2 days
[2020-12-23 23:28] LABS: Basophils # (A) 0.1 k/uL (0-0.2); Basophils % (A) 1 %; Eosinophils # (A) 0.1 k/uL (0-0.7); Eosinophils % (A) 1 %; HCT 36.1 % (34.0-46.0); Lymphocytes # (A) 1.6 k/uL (1.0-4.8); Lymphocytes % (A) 14 %; MCH 30.6 pg (25.0-35.0); MCHC 33.3 g/dL (31.0-37.0); MCV 91.9 fL (80.0-100.0); Monocytes # (A) 0.9 k/uL (0-1.0); Monocytes % (A) 8 %; Neutrophils # (A) 8.2 k/uL (1.3-7.7); Neutrophils % (A) 74 %; Platelet Count 232 k/uL (150-450); RBC 3.93 m/uL (3.80-5.40); RDW 15.1 % (11.5-15.5)
[2020-12-23 23:39] LABS: INR 1.3 (<1.2); Partial Thromboplastin Time 23.1 sec (22.0-30.0); Prothrombin Time 13.3 sec (9.0-12.0)
[2020-12-23] MEDS ORDERED: methylPREDNISolone SOD SUCCI 125 MG/2 ML VIAL IV STA (23:48)
[2020-12-23] MEDS ORDERED: SODIUM CHLORIDE 0.9% 500 ML 500 ML IV STA (23:48)
[2020-12-24 00:08] LABS: Albumin 3.5 g/dL (3.5-5.0); Calcium 8.5 mg/dL (8.4-10.2); Magnesium 2.1 mg/dL (1.6-2.3); Phosphorus 2.9 mg/dL (2.5-4.5); Potassium 3.6 mmol/L (3.5-5.1); Total Bilirubin 0.9 mg/dL (0.2-1.3)
[2020-12-24 00:19] LABS: Creatine Kinase MB <0.2 ng/mL (0.0-2.4); Troponin I <0.012 ng/mL (0.000-0.034)
--- NOTE | 2020-12-24 00:31 | XR ---
EXAMINATION TYPE: XR chest 1V portable DATE OF EXAM: 12/24/2020 COMPARISON: 08/02/2020 HISTORY: Cough TECHNIQUE: Dual view FINDINGS: Heart is enlarged. There is no heart failure. There is right central venous catheter with t ip in the superior vena cava. There are chest leads. There is no pleural effusion. There is probably some minimal atelectasis right lower lobe. IMPRESSION: Cardiomegaly. Mild atelectasis medial right lung base. This appears increased compared to old exam.
[2020-12-24] MEDS ORDERED: SODIUM CHLORIDE 0.9% 1,000 ML IV STA ×2 (01:38→04:34)
[2020-12-24] MEDS ORDERED: POTASSIUM BICARBONATE/CIT AC 20 MEQ TABLET.EFF PO ONE (01:38)
[2020-12-24] MEDS ORDERED: ATROPINE SULFATE 0.1 MG/ML 10ML SYRINGE ONE (02:16)
[2020-12-24] MEDS ORDERED: AMIODARONE 50 MG/ML 3 ML VIAL IV ONE (02:16)
[2020-12-24] MEDS ORDERED: EPINEPHrine 10 ML SYRINGE (0.1 MG/ML) ONE (02:16)
[2020-12-24] MEDS ORDERED: CALCIUM CHLORIDE 100 MG/ML 10 ML SYRINGE ONE (02:16)
[2020-12-24] MEDS ORDERED: SODIUM BICARB 8.4% 50 ML SYR (1 MEQ/ML) ONE (02:16)
[2020-12-24] MEDS: NOREPINEPHRINE 4 MG in SODIUM CHLORIDE 0.9% 250 ML IV SCH ×2 (02:30→03:37)
[2020-12-24] MEDS: MIDAZOLAM 1 MG/ML 5 ML VIAL IV STA ×3 (02:33→04:58)
[2020-12-24] MEDS ORDERED: SUCCINYLCHOLINE CHLORIDE VIAL 200 MG/10 ML VIAL IV STA (02:36)
[2020-12-24 02:42] LABS: Glucose,Whole Blood 137 mg/dL (75-99)
[2020-12-24] MEDS ORDERED: DEXTROSE 5%-0.45% NACL 1,000 ML IV ONE (03:17)
[2020-12-24] MEDS ORDERED: NOREPINEPHRINE 32 MG in SODIUM CHLORIDE 0.9% 218 ML IV ONE (03:31)
[2020-12-24] MEDS ORDERED: DOPamine DRIP 800 MG in DEXTROSE/WATER 1 250ML.BAG IV ONE (03:33)
--- NOTE | 2020-12-24 03:38 | XR ---
EXAMINATION TYPE: XR chest 1V portable DATE OF EXAM: 12/24/2020 COMPARISON: 12/24/2020 HISTORY: Tube placement TECHNIQUE: FINDINGS: Endotracheal tube is in contact with the derrek. There is pulmonary vascular congestion. Th ere is right jugular catheter with tip in the superior vena cava. There is nasogastric tube in the st omach. There are chest leads. IMPRESSION: Malposition of the endotracheal tube is in contact with the derrek. This should BE pulled back 3 cm. There is pulmonary edema that is consistent with congestive heart failure that is new compared to the exam 3 hours ago.
[2020-12-24 03:40] LABS: Appearance,Urine Cloudy (Clear); Bacteria,Urine Rare /hpf; Bilirubin,Urine Negative (Negative); Blood,Urine Negative (Negative); Color,Urine Yellow; Glucose,Urine (UA) Negative (Negative); Hyaline Casts,Urine 56 /lpf (0-2); Ketones,Urine Negative (Negative); Leukocyte Esterase,Urine Trace (Negative); Mucus,Urine Rare /hpf; Nitrite,Urine Negative (Negative); Protein,Urine 2+ (Negative); RBC,Urine 1 /hpf (0-5); Specific Gravity,Urine 1.016 (1.001-1.035); Squamous Epithelial Cell,Urine <1 /hpf (0-4); Urobilinogen,Urine <2.0 mg/dL (<2.0); WBC,Urine 9 /hpf (0-5)
[2020-12-24 03:50] LABS: ABG Base Excess -16.8 mmol/L; ABG HCO3 13 mmol/L (21-25); ABG Oxygen Saturation 86.4 % (94-97); ABG PCO2 46 mmHg (35-45); ABG PO2 78 mmHg (83-108); ABG TCO2 15 mmol/L (19-24); Allen Test Performed? Yes
[2020-12-24 03:53] LABS: ABG PH 7.07 (7.35-7.45)
[2020-12-24] MEDS ORDERED: SODIUM BICARB 8.4% 50 ML SYR (1 MEQ/ML) IV STA ×3 (03:54→09:52)
[2020-12-24 04:11] LABS: Albumin 2.8 g/dL (3.5-5.0); Calcium 6.9 mg/dL (8.4-10.2); Magnesium 2.1 mg/dL (1.6-2.3); Potassium 4.3 mmol/L (3.5-5.1); Total Protein 5.2 g/dL (6.3-8.2)
[2020-12-24] MEDS ORDERED: MIDAZOLAM 1 MG/ML 5 ML VIAL IV STA ×2 (04:27→04:52)
[2020-12-24 04:28] LABS: Basophils # (A) 0.1 k/uL (0-0.2); Basophils % (A) 0 %; Eosinophils # (A) 0.1 k/uL (0-0.7); Eosinophils % (A) 1 %; HGB 12.3 gm/dL (11.4-16.0); Hypochromasia Moderate; Lymphocytes # (A) 3.1 k/uL (1.0-4.8); Lymphocytes % (A) 23 %; MCH 28.8 pg (25.0-35.0); MCV 96.1 fL (80.0-100.0); Mean Platelet Volume 8.3; Monocytes % (A) 7 %; Neutrophils # (A) 9.1 k/uL (1.3-7.7); Neutrophils % (A) 66 %; Platelet Count 248 k/uL (150-450); RBC 4.26 m/uL (3.80-5.40); RDW 15.2 % (11.5-15.5); WBC 13.7 k/uL (3.8-10.6)
[2020-12-24] MEDS ORDERED: NALOXONE 0.4 MG/ML 1 ML VIAL IV PRN (04:35)
[2020-12-24 04:44] LABS: VBG PH 7.1 (7.31-7.41)
[2020-12-24] MEDS ORDERED: fentaNYL (PF). 1,000 MCG in SODIUM CHLORIDE 0.9% 80 ML IV SCH (05:00)
[2020-12-24] MEDS ORDERED: MIDAZOLAM HCL 50 MG in SODIUM CHLORIDE 0.9% 40 ML IV SCH (05:00)
[2020-12-24] MEDS ORDERED: fentaNYL (PF) 50 MCG/ML 2 ML AMP IVP PRN (06:08)
[2020-12-24 06:09] LABS: Glucose,Whole Blood 214 mg/dL (75-99)
[2020-12-24] MEDS ORDERED: fentaNYL (PF) 50 MCG/ML 2 ML AMP IVP ONE (06:18)
[2020-12-24 06:20] LABS: ABG HCO3 16 mmol/L (21-25); ABG Oxygen Saturation 92.1 % (94-97); ABG PCO2 42 mmHg (35-45); ABG PO2 85 mmHg (83-108); ABG TCO2 17 mmol/L (19-24); Allen Test Performed? Yes
[2020-12-24 06:22] LABS: ABG PH 7.17 (7.35-7.45)
--- NOTE | 2020-12-24 07:05 | XR ---
EXAMINATION TYPE: XR chest 1V portable DATE OF EXAM: 12/24/2020 COMPARISON: 12/24/2020 HISTORY: Cardiogenic shock and urinary tract infection TECHNIQUE: Single frontal view of the chest is obtained. FINDINGS: Lines and tubes are unchanged. Bibasilar pleural-parenchymal disease appears slightly worsened, likely positional, while pulmonary e jigna has improved. Cardiac silhouette is unchanged in size. IMPRESSION: Apparent slight worsening of bibasilar pleural-parenchymal disease is likely due to semi upright position on the current exam given interval improvement in pulmonary edema.
[2020-12-24] MEDS ORDERED: HEPARIN SODIUM 1,000 UN/ML (10ML VL) IV ONE (07:09)
[2020-12-24] MEDS ORDERED: HEPARIN SODIUM 1,000 UN/ML (10ML VL) IV PRN (07:09)
[2020-12-24] MEDS: IPRATROPIUM-ALBUTEROL 3 ML NEB INHALATION SCH ×3 (07:13→15:23)
[2020-12-24] MEDS ORDERED: HEPARIN SOD,PORK IN 0.45% NACL 25,000 UNIT in 0.45% NACL 1 250ML.BAG IV SCH (07:15)
[2020-12-24 08:12] VITALS: TEMP 98.7
[2020-12-24] MEDS ORDERED: propofoL 100 ML IV ONE (08:29)
[2020-12-24] MEDS ORDERED: DOBUTamine DRIP 500 MG in DEXTROSE/WATER 1 250ML.BAG IV SCH (09:00)
[2020-12-24] MEDS ORDERED: CHLORHEXIDINE GLUCONATE 15 ML CUP MUCOUS MEM SCH (09:00)
--- NOTE | 2020-12-24 09:00 | P.CNPUL ---
History of Present Illness Consult date: 12/24/20 Chief complaint: Cardiac arrest History of present illness: 75-year-old female patient who got moved to the intensive care unit after she had a cardiac arrest in the emergency department. The patient was apparently being treated for UTI on outpatient basis and she was receiving Macrobid. She came into the emergency feeling weak, tired, and she was also was having some dry cough. She thought that she was having a drug reaction. She is known to have history of atrial fibrillation. She has previous history of DVT and pulmonary embolism and she was maintained on warfarin her PT/INR was subtherapeutic. She has nonocclusive coronary artery disease and a cardiac catheterization from degenerative 2020 has shown 30-40% disease involving the OM branch and the bifurcation of the circumflex. Her echocardiogram back and was also within normal limits. The patient also has history of non-Hodgkin's lymphoma treated through medical oncology and she has a port over the right anterior chest area. The patient was evaluated in the emergency department. During the course of her illness, the patient had a drop in her blood pressure and the heart rate. She was still awake and conscious and she was communicating. She became bradycardic and that was the cardiac arrest. I saw 2 EKGs. EKGs were consistent with wide complex rhythm and some ST segment elevations. Nevertheless, 2 sets of cardiac enzymes have been negative. A repeat EKG will be obtained in the intensive care unit. The patient continued to have a low blood pressure. She was started on norepinephrine infusion which is currently running at 0.5 mcg/kg per minute and dopamine was also running at 10 mcg/kg per minute. The patient had a triple lumen catheter inserted in the right femoral vein. The patient was intubated and started on a mechanical ventilator at the rate of 18 with tidal volume of 300 and a FiO2 of 20% with a PEEP of 5. The blood gases the time of his arrival to the ICU showed a pH of 7.17 with a pCO2 of 42 and pO2 of 85. Chest x-ray is consistent with pulmonary edema. ET tube is in a good location above the derrek. There is also no G-tube in place. Lactic acid level peaked at 6.1. COVID-19 testing was negative. The white cell count is at 13.7 with a hemoglobin of 12.3. Coagulation profile showed an INR of 1.3 with a PT of 13.3 and PTT of 23. The rest of the blood work shows a component of chronic kidney disease with a creatinine of 1.78 and a serum bicarb of 16 and anion gap of 12 with a sodium of 129. 2 sets of troponins are negative. LFTs are abnormal with an AST of 257 and ALP of 416. Bilirubin is at 1.0. UA showed hyaline casts. 9 WBCs, some rare WBC clumps, other the patient is currently also on fentanyl running at 0.5 mg/kg/h. Unfortunately, details of her presentation and clinical course is not clear from the emergency room documentation. The exact downtime for a cardiac arrest is not clear. The patient currently was given epinephrine 1. She also received CPR. Based on the cordis sheet, there was a return of spontaneous circulation within 8 minutes. There is documentation that the patient wasn't PEA rhythm. The patient was reported to be having some shortness of breath and acute and she became dusky and following that she became unresponsive and she was not breathing. No pulsatile other identified and CPR was started. Following the CPR, the patient started breathing on her own and again pulses. At that point she was intubated. Blood sugar was 137. It seems that the code occurred after the patient was given 5 mg of IV Lopressor. Review of Systems ROS unobtainable: due to endotracheal tube, due to mental status Past Medical History Past Medical History: Atrial Fibrillation, Asthma, Cancer, Chest Pain / Angina, Deep Vein Thrombosis (DVT), GERD/Reflux, Hearing Disorder / Deafness, Hypertension, Myocardial Infarction ([place]), Pulmonary Embolus (PE) Additional Past Medical History / Comment(s): heart murmur, PE Lt lung 2012, DVT Lt thigh 2012, RECTAL CANCER 2010(NO [place]), NONHODGKINS LYMPHOMA 2012 WITH CHEMO. , HX OF POSITIVE TB SKIN TEST WITH [place] (1984?)., BACK PAIN. Last Myocardial Infarction Date:: unknown History of Any Multi-Drug Resistant Organisms: None Reported Past Surgical History: Appendectomy, Breast Surgery, Section, Cholecystectomy, Hysterectomy Additional Past Surgical History / Comment(s): IV ACCESS PORT, BREAST BX, LYMPH NODE BX, X2 Past Anesthesia/Blood Transfusion Reactions: No Reported Reaction Additional Past Anesthesia/Blood Transfusion Reaction / Comment(s): DIFFICULTY WAKING UP Past Psychological History: Anxiety, Depression Smoking Status: Never smoker Past Alcohol Use History: Rare Past Drug Use History: None Reported - Past Family History father Family Medical History: Deep Vein Thrombosis (DVT) Medications and Allergies Home Medications Medication Instructions Recorded Confirmed Type Warfarin Sodium [Coumadin] 2.5 mg PO W/SUPPER 08/05/14 08/02/20 History Zolpidem Tartrate [Ambien] 10 mg PO HS PRN 08/05/14 08/02/20 History traMADol HCl [Ultram] 50 - 100 mg PO TID PRN 08/05/14 08/02/20 History Naproxen Sodium [Aleve] 220 mg PO Q12HR PRN 10/27/18 08/02/20 History Cholecalciferol [Vitamin D3 (25 4,000 unit PO DAILY 07/30/19 08/02/20 History Mcg = 1000 Iu)] Ibuprofen [Advil] 200 mg PO DAILY PRN 07/30/19 08/02/20 History Magnesium 500 mg PO DAILY 07/30/19 08/02/20 History Multivit with Calcium,Iron,Min 1 each PO DAILY 07/30/19 08/02/20 History [Women's Multivitamin] Citalopram Hydrobromide [CeleXA] 40 mg PO DAILY 08/02/20 08/02/20 History Cyclobenzaprine [Flexeril] 5 mg PO TID PRN 08/02/20 08/02/20 History Levocetirizine Dihydrochloride 5 mg PO DAILY PRN 08/02/20 08/02/20 History [Xyzal] Levothyroxine Sodium [Synthroid] 25 mcg PO DAILY 08/02/20 08/02/20 History Metoprolol Succinate (ER) [Toprol 25 mg PO DAILY 08/02/20 08/02/20 History XL] Simvastatin [Zocor] 40 mg PO DAILY 08/02/20 08/02/20 History Warfarin [Coumadin] 5 mg PO ONCE@1800 tab 08/04/20 Rx Allergies Allergy/AdvReac Type Severity Reaction Status Date / Time Penicillins Allergy Severe throat Verified 12/23/20 22:33 swelling Sulfa (Sulfonamide Allergy Swelling Verified 12/23/20 22:33 Antibiotics) Physical Exam Vitals: Vital Signs Temp Pulse Pulse Resp BP BP Pulse Ox 12/24/20 07:30 72 12/24/20 07:19 72 12/24/20 07:00 71 20 114/39 99 12/24/20 06:30 74 16 100/50 96 12/24/20 06:22 79 18 118/20 97 12/24/20 06:15 72 20 117/51 95 12/24/20 06:00 98.7 F 71 23 85/57 93 L 12/24/20 05:31 53 L 18 117/39 97 12/24/20 05:23 73 18 112/38 97 12/24/20 05:17 70 18 110/47 98 12/24/20 05:15 72 18 88/53 97 12/24/20 05:06 71 18 101/46 97 12/24/20 05:02 72 18 87/37 96 12/24/20 05:00 71 18 102/43 98 12/24/20 04:49 71 18 82/40 97 12/24/20 04:45 80 18 87/37 97 12/24/20 04:30 71 18 97/32 96 12/24/20 04:14 75 18 117/32 98 12/24/20 03:53 80 18 58/40 97 12/24/20 03:19 58 L 18 72/47 97 12/24/20 02:54 60 18 71/37 97 12/24/20 02:48 52 L 18 67/47 98 12/24/20 02:35 55 L 18 66/42 95 12/24/20 02:17 78 18 78/50 98 12/24/20 01:43 82 18 81/54 96 12/24/20 01:10 80 16 71/46 96 12/24/20 00:05 81 16 87/58 95 12/23/20 23:01 98 18 104/64 100 12/23/20 22:35 20 12/23/20 22:29 101 H 20 100/69 100 Intake and Output 12/23/20 12/24/20 12/24/20 22:59 06:59 14:59 Intake Total 545.612 100 Output Total 25 Balance 545.612 75 Intake: IV 200 100 Dextrose 5%-0.45% NaCl 1, 200 100 000 ml @ 100 mls/hr IV . Q10H [facility] Rx#:[id number] Intake, IV Titration 345.612 Amount Norepinephrine 32 mg In 8.474 Sodium Chloride 0.9% 218 ml @ 0.05 MCG/KG/MIN 1. 595 mls/hr IV .Q24H [facility] Rx#:[id number] Norepinephrine 4 mg In 336.305 Sodium Chloride 0.9% 250 ml @ 0.1 MCG/KG/MIN 25. 923 mls/hr IV .[id number] [facility] Rx#:[id number] fentaNYL (PF). 1,000 mcg 0.833 In Sodium Chloride 0.9% 80 ml @ Per Protocol IV . Q0M [facility] Rx#:[id number] Output: Urine 25 Other: Voiding Method Indwelling Catheter Weight 68.039 kg Gen. appearance she is calm and comfortable, sedated, nonacute distress, synchronous a mechanical ventilator. Orogastric and orotracheal tube are both in place. Head exam was generally normal. There was no scleral icterus or corneal arcus. Mucous membranes were moist. Neck was supple and without jugular venous distension, thyromegaly, or carotid bruits. Carotids were easily palpable bilaterally. There was no adenopathy. Lungs were clear to auscultation and percussion, and with normal diaphragmatic excursion. No wheezes or rales were noted. There are crackles in lung bases bilaterally. No significant wheezes. Cardiac exam revealed the PMI to be normally situated and sized. The rhythm was regular and no extrasystoles were noted during several minutes of auscultation. The first and second heart sounds were normal and physiologic splitting of the second heart sound was noted. There were no murmurs, rubs, clicks, or gallops. Abdominal exam revealed normal bowel sounds. The abdomen was soft, non-tender, and without masses, organomegaly, or appreciable enlargement of the abdominal aorta. Extremities are cold and the patient diminished pulses in all 4 extremities. No significant edema. No cyanosis. No clubbing. Neurologically, the patient has equal and symmetrical pupils. Tubes are reactive to light. No Nystagmus. The patient is under the effect of fentanyl for now. Motor function cannot be assessed. Sensory function cannot be asse ssed. The patient has negative clonus, negative Babinski. No facial asymmetry. Positive cough. Positive gag. Results - Laboratory Findings CBC and BMP: 12/24/20 03:20 12/24/20 03:20 ABG ABG pH 7.17 (7.35-7.45) L* 12/24/20 06:11 ABG pCO2 42 mmHg (35-45) 12/24/20 06:11 ABG pO2 85 mmHg (83-108) 12/24/20 06:11 ABG O2 Saturation 92.1 % (94-97) L 12/24/20 06:11 PT/INR, D-dimer PT 13.3 sec (9.0-12.0) H 12/23/20 22:55 INR 1.3 (<1.2) H 12/23/20 22:55 Abnormal lab findings: Abnormal Labs 12/23/20 12/23/20 12/23/20 22:55 22:55 22:55 WBC 11.0 H MCHC Neutrophils # 8.2 H PT 13.3 H INR 1.3 H ABG pH ABG pCO2 ABG pO2 ABG HCO3 ABG Total CO2 ABG O2 Saturation VBG pH VBG HCO3 Sodium 128 L Chloride 94 L Carbon Dioxide BUN 31 H Creatinine 1.56 H Glucose 143 H POC Glucose (mg/dL) Plasma Lactic Acid Mt Calcium AST 230 H ALT 475 H Alkaline Phosphatase 127 H Total Protein 6.0 L Albumin Urine Appearance Urine Protein Ur Leukocyte Esterase Urine WBC Urine WBC Clumps Urine Bacteria Hyaline Casts Urine Mucus 12/24/20 12/24/20 12/24/20 02:07 02:41 03:20 WBC 13.7 H MCHC 30.0 L Neutrophils # 9.1 H PT INR ABG pH ABG pCO2 ABG pO2 ABG HCO3 ABG Total CO2 ABG O2 Saturation VBG pH VBG HCO3 Sodium Chloride Carbon Dioxide BUN Creatinine Glucose POC Glucose (mg/dL) 137 H Plasma Lactic Acid Mt Calcium AST ALT Alkaline Phosphatase Total Protein Albumin Urine Appearance Cloudy H Urine Protein 2+ H Ur Leukocyte Esterase Trace H Urine WBC 9 H Urine WBC Clumps Rare H Urine Bacteria Rare H Hyaline Casts 56 H Urine Mucus Rare H 12/24/20 12/24/20 12/24/20 03:20 03:20 03:20 WBC MCHC Neutrophils # PT INR ABG pH ABG pCO2 ABG pO2 ABG HCO3 ABG Total CO2 ABG O2 Saturation VBG pH 7.10 L* VBG HCO3 14 L Sodium 129 L Chloride Carbon Dioxide 16 L BUN 27 H Creatinine 1.78 H Glucose 215 H POC Glucose (mg/dL) Plasma Lactic Acid Mt 5.4 H* Calcium 6.9 L AST 257 H ALT 416 H Alkaline Phosphatase 178 H Total Protein 5.2 L Albumin 2.8 L Urine Appearance Urine Protein Ur Leukocyte Esterase Urine WBC Urine WBC Clumps Urine Bacteria Hyaline Casts Urine Mucus 12/24/20 12/24/20 12/24/20 03:46 06:07 06:11 WBC MCHC Neutrophils # PT INR ABG pH 7.07 L* 7.17 L* ABG pCO2 46 H ABG pO2 78 L ABG HCO3 13 L 16 L ABG Total CO2 15 L 17 L ABG O2 Saturation 86.4 L 92.1 L VBG pH VBG HCO3 Sodium Chloride Carbon Dioxide BUN Creatinine Glucose POC Glucose (mg/dL) 214 H Plasma Lactic Acid Mt Calcium AST ALT Alkaline Phosphatase Total Protein Albumin Urine Appearance Urine Protein Ur Leukocyte Esterase Urine WBC Urine WBC Clumps Urine Bacteria Hyaline Casts Urine Mucus 12/24/20 06:51 WBC MCHC Neutrophils # PT INR ABG pH ABG pCO2 ABG pO2 ABG HCO3 ABG Total CO2 ABG O2 Saturation VBG pH VBG HCO3 Sodium Chloride Carbon Dioxide BUN Creatinine Glucose POC Glucose (mg/dL) Plasma Lactic Acid Mt 6.1 H* Calcium AST ALT Alkaline Phosphatase Total Protein Albumin Urine Appearance Urine Protein Ur Leukocyte Esterase Urine WBC Urine WBC Clumps Urine Bacteria Hyaline Casts Urine Mucus - Diagnostic Findings Chest x-ray: image reviewed Assessment and Plan Plan: 1 acute cardiac arrest with a downtime estimated to be around 8 minutes and the patient was in a PEA rhythm and there was return of spontaneous circulation. Currently intubated on a mechanical ventilator. Still hypotensive requiring pressors for hemodynamic support. Currently on a combination of dopamine and levo fed. Intubated on a mechanical ventilator. Currently sedated with fentanyl. Underlying mental status has not been status post cardiac arrest. The patient had a witnessed cardiac arrest in the emergency department. 2 acute hypoxic respiratory failure secondary to above. Currently intubated on mechanical ventilator and chest x-rays consistent with moderate edema. 3 nonocclusive coronary artery disease, please refer to the cardiac catheterization results from 2020, EKG showing a wide-complex rhythm possibly a bundle-branch block pattern. Cardiac enzymes of been negative 4 chronic atrial fibrillation maintained on warfarin on outpatient basis 5 remote history of DVT and pulmonary embolism back in 2012 maintained on warfarin, PT/INR was subtherapeutic 6 acute lactic acidosis 7 acute on top of chronic kidney disease, creatinine is at 1.78 and the patient is currently oliguric, Newton catheter is in place 8 chronic bronchial asthma 9 positive skin test in 1984, receives chemoprophylaxis based on the history 10 chronic back pain 11 UTI on outpatient basis, as being treated 12 history of non-Hodgkin's lymphoma 2013 treated with systemic chemotherapy 13 history of rectal cancer and 2011 surgically resected 14 abnormal LFTs, mild transaminitis, could be related to above-mentioned events Plan Continue ventilator support. Increase the tidal volume to 450. Keep the related 16 and gradually wean down FiO2 to maintain a saturation above 90% and increase PEEP up to 10. Switch this patient from fentanyl to propofol infusion for sedation. We'll give the patient sedation holiday within next few hours and assess her underlying mental status Established triple-lumen catheter and arterial line Establish a CVP monitor Obtain a stat echocardiogram Continue with pressors and will eliminate dopamine infusion and used only norepinephrine and titrated to maintain a mean arterial pressure above 65 Cover the patient IV Zosyn as an empiric antibiotic coverage Obtain ultrasound the kidneys and gallbladder Repeat EKG Cardiology consultation Initiate IV heparin, as the patient is known to have paroxysmal atrial fibrillation and previous history of DVT and pulmonary embolism will need a CAT scan of the CT of the brain once clinically more stable Monitor lactic acid levels IV Protonix Blood cultures Urine cultures Condition is critical and will continue to follow and will make further recom mendations based on the overall clinical progression. Time with Patient: Greater than 30
--- NOTE | 2020-12-24 09:01 | ECHOF ---
Referral Reason:post cardiac arrest MEASUREMENTS -------- HEIGHT: 157.5 cm WEIGHT: 68.0 kg BP: RVIDd: 3.2 cm (< 3.3) IVSd: 0.8 cm (0.6 - 1.1) LVIDd: 4.4 cm (3.9 - 5.3) LVPWd: 1.2 cm (0.6 - 1.1) IVSs: 1.3 cm LVIDs: 3.9 cm LVPWs: 1.0 cm LAESV Index (A-L): 40.81 ml/m Ao Diam: 3.2 cm (2.0 - 3.7) AV Cusp: 1.9 cm (1.5 - 2.6) LA Diam: 3.8 cm (2.7 - 3.8) MV EXCURSION: 15.618 mm (> 18.000) MV EF SLOPE: 99 mm/s (70 - 150) EPSS: 1.0 cm MV E Bowen: 1.21 m/s MV DecT: 117 ms MV A Bowen: 0.32 m/s MV E/A Ratio: 3.73 AR PHT: 194 ms RAP: 20.00 mmHg RVSP: 62.71 mmHg FINDINGS -------- This was a technically adequate study. The left ventricular size is normal. Left ventricular wall thickness is normal. There is severe g lobal hypokinesis of LV . Overall left ventricular systolic function is severely impaired with, an EF between 20 - 25 %. Increased LAP Grade 3 Diastolic Dysfunction. The right ventricle is normal in size. LA is severely dilated >40 ml/m2 The right atrial size is normal. There is moderate aortic valve sclerosis. Trace amount of aortic regurgitation. Moderate mitral annular calcification present. Severe mitral regurgitation is present. The tricuspid valve appears structurally normal. Severe tricuspid regurgitation present. There is moderate to severe pulmonary hypertension. The right ventricular systolic pressure, as measured by Doppler, is 62.71mmHg. Trace/mild (physiologic) pulmonic regurgitation. The aortic root size is normal. The inferior vena cava is dilated with no significant inspiratory collapse which is consistent estima eva right atrial pressure of >20 mmHg. There is no pericardial effusion. CONCLUSIONS -------- 1. Left ventricular wall thickness is normal. 2. There is severe global hypokinesis of LV . 3. Overall left ventricular systolic function is severely impaired with, an EF between 20 - 25 %. 4. Increased LAP Grade 3 Diastolic Dysfunction. 5. LA is severely dilated >40 ml/m2 6. There is moderate aortic valve sclerosis. 7. Trace amount of aortic regurgitation. 8. Moderate mitral annular calcification present. 9. Severe mitral regurgitation is present. 10. Severe tricuspid regurgitation present. 11. There is moderate to severe pulmonary hypertension. 12. Trace/mild (physiologic) pulmonic regurgitation. 13. The inferior vena cava is dilated with no significant inspiratory collapse which is consistent es timated right atrial pressure of >20 mmHg. 14. There is no pericardial effusion. FUEL YARD OPERATOR: Lydia Agustin RDCS
--- NOTE | 2020-12-24 09:09 | P.PCN ---
Date of Procedure: 12/24/20 Preoperative Diagnosis: acute cardiac arrest Postoperative Diagnosis: acute cardiac arrest Procedure(s) Performed: insertion of central line and arterial line Anesthesia: local Surgeon: Nancy Ritchie Condition: critical Disposition: ICU Operative Findings: Indication: Hemodynamic monitoring/Intravenous access. A time-out was completed verifying correct patient, procedure, site, positioning. The patient was placed in a dependent position appropriate for central line placement based on the vein to be cannulated. The patients left shoulder and neck was prepped and draped in sterile fashion. 1% Lidocaine was used to anesthetize the surrounding skin area. A triple lumen 9F Cordis catheter was introduced into the subclavian vein using Seldinger technique. The catheter was threaded smoothly over the guide wire and appropriate blood return was obtained. Each lumen of the catheter was evacuated of air and flushed with sterile saline. The catheter was then sutured in place to the skin and a sterile dressing applied. Perfusion to the extremity distal to the point of catheter insertion was checked and found to be adequate. The patient tolerated the procedure well and there were no complications. Indication: Hemodynamic monitoring. A time-out was completed verifying correct patient, procedure, site, po sitioning, and implant(s) or special equipment if applicable. Bryson's test was performed to ensure adequate perfusion. The patient's right wrist was prepped and draped in sterile fashion. 1% Lidocaine was used to anesthetize the area. An 18G Arrow arterial line was introduced into the radial artery. The catheter was threaded over the guide wire and the needle was removed with appropriate pulsatile blood return. Blood loss was minimal. The catheter was then sutured in place to the skin and a sterile dressing applied. Perfusion to the extremity distal to the point of catheter insertion was checked and found to be adequate. The patient tolerated the procedure well and there were no complications.
--- NOTE | 2020-12-24 09:10 | XR ---
EXAMINATION TYPE: XR chest 1V portable DATE OF EXAM: 12/24/2020 COMPARISON: 12/24/2020 HISTORY: Central line placement TECHNIQUE: Single frontal view of the chest is obtained. FINDINGS: Interval placement of a left subclavian line terminating at the cavoatrial junction. The remainder of the lines and tubes are unchanged. Bibasilar pleural-parenchymal disease with scattered airspace disease bilaterally appears similar to the prior examination. Cardiac silhouette is unchanged. IMPRESSION: Interval placement of left subclavian line, as described, otherwise, no significant change since the prior exam.
[2020-12-24] MEDS ORDERED: FUROSEMIDE 10 MG/ML 10 ML VIAL IV SCH (09:15)
[2020-12-24] MEDS ORDERED: CEFEPIME 2 GM in SODIUM CHLORIDE 0.9% 100 ML IVPB SCH (09:15)
[2020-12-24] MEDS ORDERED: CEFEPIME 1 GM in SODIUM CHLORIDE 0.9% 50 ML IVPB ONE (09:15)
[2020-12-24 09:36] LABS: ABG Base Excess -18.6 mmol/L; ABG Oxygen Saturation 98.5 % (94-97); ABG PCO2 29 mmHg (35-45); ABG PO2 206 mmHg (83-108); ABG TCO2 11 mmol/L (19-24)
[2020-12-24 09:39] LABS: ABG HCO3 10 mmol/L (21-25); ABG PH 7.15 (7.35-7.45); Allen Test Performed? no
--- NOTE | 2020-12-24 10:13 | US ---
EXAMINATION TYPE: US abd limited kidneys/bladder DATE OF EXAM: 12/24/2020 COMPARISON: EXAMINATION TYPE: US abd limited kidneys/bladder DATE OF EXAM: 12/24/2020 COMPARISON: CT 10/21/2018 CLINICAL HISTORY: elizabeth. ICU pt on vent, ELIZABETH, sepsis, GB removed EXAM MEASUREMENTS: Liver Length: 14.8 cm CBD: 0.8 cm Right Kidney: 8.2 x 3.8 x 3.6 cm Left Kidney: 9.7 x 5.4 x 4.0 cm Pancreas: Body wnl, head and tail Liver: Difficult to penetrate and echogenic, nonspecific but most commonly seen in hepatic steatosis Gallbladder: Surgically absent CBD: wnl, for post asha Right Kidney: Small in size Left Kidney: Cyst lower pole= 5.1 x 4.4 x 4.5 cm Bladder: Cath in place Both kidneys are echogenic with bilateral renal cortical thinning. There is a small amount of perihepatic free fluid. IMPRESSION: 1. Markedly limited exam. 2. Nonspecific findings of the liver most likely represent hepatic steatosis. 3. Echogenic kidneys with bilateral renal cortical thinning most likely represent chronic kidney dise ase. No hydronephrosis. STAT exam done through the ICU; exam limitations due to acute trauma status. All four abdominal ariana drants scanned to assess for fluid post trauma. This study is a focused, limited study. This is not a FAST scan as it does not meet the established AIUM guidelines as such. A trauma ultrasound provides a picture of a patient?s condition at one moment in time. It never elim inates the possibility of injury or fluid collections that are below the detectable threshold of an u ltrasound exam. If negative, alternate imaging may be clinically warranted.
--- NOTE | 2020-12-24 10:26 | P.CRDCN ---
History of Present Illness History of present illness: HISTORY OF PRESENTING ILLNESS This is a pleasant 75-year-old female past medical history significant for nonobstructive coronary artery disease, non-Hodgkin's lymphoma, paroxysmal atrial fibrillation on Eliquis, hypertension, dyslipidemia and history of PE and DVT. She follows in the office with Dr. Garcia. She presented to the hospital yesterday evening with symptoms of generalized weakness and just not feeling well. She had been diagnosed with a UTI as an outpatient and had been on Macrobid. She was attributing all of her symptoms to the UTI. At some point in the course of her ER she became hypotensive and bradycardic then unresponsive requiring CPR. ROSC was achieved and she was intubated. She continues to maintained on mechanical ventilation with levophed and diprivan infusing. Initial EKG on arrival revealed sinus mechanism with discernible P waves preceding the QRS complex with wide complex QRS which is new from previous. EKG after CPR revealed a sinus rhythm with evidence of small but discernible P-waves preceding a wide QRS complex. She was here in July and underwent catheterization revealing diffuse plaque of the LAD and RCA with are of stenosis 30-40% at the circumflex and OM bifurcation. EKGs reviewed from previous admissions reveal a narrow complex SR. Chest x-ray status post CPR reveals pulmonary edema. Echocardiogram obtained revealed severely impaired LV systolic function with severe LV hypokinesia, ejection fraction 20-25%, grade 3 diastolic dysfunction, severely dilated left atrium, severe mitral regurgitation, severe tricuspid regurgitation and moderate to severe pulmonary hypertension with an RVSP of 62 mmHg. Laboratory data reviewed, WBC 13.7, hemoglobin 12.3, platelets 248, INR 1.3, pH 7.15, pCO2 29, pO2 206, lactic acid 6.1, cardiac enzymes negative x3, sodium 129, potassium 4.3, creatinine 1.78, AST 257, ALT 416, alk di phosphatase 878 and NT proBNP 2419. REVIEW OF SYSTEMS At the time of my exam: Unable to obtain an accurate review of systems secondary to mechanical ventilation and sedation. PHYSICAL EXAMINATION Blood pressure 114/39 heart rate 72 afebrile and maintaining oxygen saturation on mechanical ventilation. CONSTITUTIONAL: No apparent distress. HEENT: Head is normocephalic. Pupils are equal, round. Sclerae anicteric. Mucous membranes of the mouth are moist. No JVD. No carotid bruit. CHEST EXAMINATION: Crackles auscultated posteriorly. No chest wall tenderness is noted on palpation or with deep breathing. HEART EXAMINATION: Regular rate and rhythm. S1, S2 heard. Systolic ejection murmur at all listening points, no gallops or rub. ABDOMEN: Soft, nontender. Positive bowel sounds. EXTREMITIES: 2+ peripheral pulses, no lower extremity edema and no calf tenderness. NEUROLOGIC EXAMINATION: Patient is sedated. ASSESSMENT s/p cardiac arrest, PEA Acute systolic heart failure Wide complex rhythm Metabolic acidosis Lactic acidosis Transaminitis Paroxysmal atrial fibrillation on eliquis Non-obstructive coronary artery disease Hypertension Dyslipidemia PLAN Continue heparin infusion for thromboembolic protection secondary to afib. IV diuresis ongoing. Continue to optimize her respiratory status per critical care team. Consider placement of balloon pump if her overall status of acidosis does not improve for perfusion. Follow renal function and electrolytes in the morning. Dr. Garcia and Dr. Ritchie discussed the case and plan to diurese today and increased PEEP for now. Further recommendations to follow based on clinical course. Thank you kindly for this consultation. Nurse Practitioner note has been reviewed, I agree with a documented findings and plan of care. Patient was seen and examined. Past Medical History Past Medical History: Atrial Fibrillation, Asthma, Cancer, Chest Pain / Angina, Deep Vein Thrombosis (DVT), GERD/Reflux, Hearing Disorder / Deafness, Hypertension, Myocardial Infarction (NH), Pulmonary Embolus (PE) Additional Past Medical History / Comment(s): heart murmur, PE Lt lung 2012, DVT Lt thigh 2012, RECTAL CANCER 2010(NO TX), NONHODGKINS LYMPHOMA 2012 WITH CHEMO. , HX OF POSITIVE TB SKIN TEST WITH TX (1984?)., BACK PAIN. Last Myocardial Infarction Date:: unknown History of Any Multi-Drug Resistant Organisms: None Reported Past Surgical History: Appendectomy, Breast Surgery, Section, Cholecystectomy, Hysterectomy Additional Past Surgical History / Comment(s): IV ACCESS PORT, BREAST BX, LYMPH NODE BX, X2 Past Anesthesia/Blood Transfusion Reactions: No Reported Reaction Additional Past Anesthesia/Blood Transfusion Reaction / Comment(s): DIFFICULTY WAKING UP Past Psychological History: Anxiety, Depression Smoking Status: Never smoker Past Alcohol Use History: Rare Past Drug Use History: None Reported - Past Family History father Family Medical History: Deep Vein Thrombosis (DVT) Medications and Allergies Home Medications Medication Instructions Recorded Confirmed Type Zolpidem Tartrate [Ambien] 10 mg PO HS PRN 08/05/14 12/24/20 History traMADol HCl [Ultram] 50 - 100 mg PO TID PRN 08/05/14 12/24/20 History Naproxen Sodium [Aleve] 220 mg PO Q12HR PRN 10/27/18 12/24/20 History Cholecalciferol [Vitamin D3 (25 4,000 unit PO DAILY 07/30/19 12/24/20 History Mcg = 1000 Iu)] Ibuprofen [Advil] 200 mg PO DAILY PRN 07/30/19 12/24/20 History Multivit with Calcium,Iron,Min 1 tab PO DAILY 07/30/19 12/24/20 History [Women's Multivitamin] Citalopram Hydrobromide [CeleXA] 40 mg PO DAILY 08/02/20 12/24/20 History Cyclobenzaprine [Flexeril] 5 mg PO TID PRN 08/02/20 12/24/20 History Levocetirizine Dihydrochloride 5 mg PO DAILY PRN 08/02/20 12/24/20 History [Xyzal] Levothyroxine Sodium [Synthroid] 25 mcg PO DAILY 08/02/20 12/24/20 History Metoprolol Succinate (ER) [Toprol 25 mg PO DAILY 08/02/20 12/24/20 History XL] Simvastatin [Zocor] 40 mg PO DAILY 08/02/20 12/24/20 History Apixaban [Eliquis] 5 mg PO BID 12/24/20 12/24/20 History Flecainide Acetate 100 mg PO BID 12/24/20 12/24/20 History Magnesium Oxide [Spangler] 500 mg PO DAILY 12/24/20 12/24/20 History Allergies Allergy/AdvReac Type Severity Reaction Status Date / Time Penicillins Allergy Severe throat Verified 12/23/20 22:33 swelling Sulfa (Sulfonamide Allergy Swelling Verified 12/23/20 22:33 Antibiotics) Physical Exam Vitals: Vital Signs Temp Pulse Pulse Resp BP BP Pulse Ox 12/24/20 07:30 72 12/24/20 07:19 72 12/24/20 07:00 71 20 114/39 99 12/24/20 06:30 74 16 100/50 96 12/24/20 06:22 79 18 118/20 97 06/16/21 06:15 72 20 117/51 95 12/24/20 06:00 98.7 F 71 23 85/57 93 L 12/24/20 05:31 53 L 18 117/39 97 12/24/20 05:23 73 18 112/38 97 12/24/20 05:17 70 18 110/47 98 12/24/20 05:15 72 18 88/53 97 12/24/20 05:06 71 18 101/46 97 12/24/20 05:02 72 18 87/37 96 12/24/20 05:00 71 18 102/43 98 12/24/20 04:49 71 18 82/40 97 12/24/20 04:45 80 18 87/37 97 12/24/20 04:30 71 18 97/32 96 12/24/20 04:14 75 18 117/32 98 12/24/20 03:53 80 18 58/40 97 12/24/20 03:19 58 L 18 72/47 97 12/24/20 02:54 60 18 71/37 97 12/24/20 02:48 52 L 18 67/47 98 12/24/20 02:35 55 L 18 66/42 95 12/24/20 02:17 78 18 78/50 98 12/24/20 01:43 82 18 81/54 96 12/24/20 01:10 80 16 71/46 96 12/24/20 00:05 81 16 87/58 95 12/23/20 23:01 98 18 104/64 100 12/23/20 22:35 20 12/23/20 22:29 101 H 20 100/69 100 Intake and Output 12/23/20 12/24/20 12/24/20 22:59 06:59 14:59 Intake Total 545.612 100 Output Total 25 Balance 545.612 75 Intake: IV 200 100 Dextrose 5%-0.45% NaCl 1, 200 100 000 ml @ 100 mls/hr IV . Q10H [facility] Rx#:[id number] Intake, IV Titration 345.612 Amount Norepinephrine 32 mg In 8.474 Sodium Chloride 0.9% 218 ml @ 0.05 MCG/KG/MIN 1. 595 mls/hr IV .Q24H ONE Rx#:[id number] Norepinephrine 4 mg In 336.305 Sodium Chloride 0.9% 250 ml @ 0.1 MCG/KG/MIN 25. 923 mls/hr IV .Q9H48M [facility] Rx#:[id number] fentaNYL (PF). 1,000 mcg 0.833 In Sodium Chloride 0.9% 80 ml @ Per Protocol IV . Q0M [facility] Rx#:[id number] Output: Urine 25 Other: Voiding Method Indwelling Catheter Weight 68.039 kg 80.6 kg Results 12/24/20 03:20 12/24/20 03:20 Cardiac Enzymes 12/23/20 12/23/20 12/24/20 Range/Units 22:55 22:55 03:20 AST 230 H 257 H (14-36) U/L CK-MB (CK-2) <0.2 (0.0-2.4) ng/mL Troponin I <0.012 (0.000-0.034) ng/mL 12/24/20 12/24/20 Range/Units 03:20 07:20 AST (14-36) U/L CK-MB (CK-2) (0.0-2.4) ng/mL Troponin I <0.012 <0.012 (0.000-0.034) ng/mL Coagulation 12/23/20 Range/Units 22:55 PT 13.3 H (9.0-12.0) sec APTT 23.1 (22.0-30.0) sec CBC 12/23/20 12/24/20 Range/Units 22:55 03:20 WBC 11.0 H 13.7 H (3.8-10.6) k/uL RBC 3.93 4.26 (3.80-5.40) m/uL Hgb 12.0 12.3 (11.4-16.0) gm/dL Hct 36.1 41.0 (34.0-46.0) % Plt Count 232 248 (150-450) k/uL Comprehensive Metabolic Panel 12/23/20 12/24/20 Range/Units 22:55 03:20 Sodium 128 L 129 L (137-145) mmol/L Potassium 3.6 4.3 (3.5-5.1) mmol/L Chloride 94 L 101 (98-107) mmol/L Carbon Dioxide 24 16 L (22-30) mmol/L BUN 31 H 27 H (7-17) mg/dL Creatinine 1.56 H 1.78 H (0.52-1.04) mg/dL Glucose 143 H 215 H (74-99) mg/dL Calcium 8.5 6.9 L (8.4-10.2) mg/dL AST 230 H 257 H (14-36) U/L ALT 475 H 416 H (4-34) U/L Alkaline Phosphatase 127 H 178 H (38-126) U/L Total Protein 6.0 L 5.2 L (6.3-8.2) g/dL Albumin 3.5 2.8 L (3.5-5.0) g/dL Current Medications Generic Name Dose Route Start Last Admin Trade Name Freq PRN Reason Stop Dose Admin Albuterol/Ipratropium 3 ml 12/24/20 08:00 12/24/20 07:13 Ipratropium-Albuterol 3 Ml Neb INHALATION 3 ml RT-QID CARA Administration Chlorhexidine Gluconate 15 ml 12/24/20 09:00 Chlorhexidine Gluconate 15 Ml Cup MUCOUS MEM BID CARA Furosemide 60 mg 12/24/20 09:15 Furosemide 10 Mg/Ml 10 Ml Vial IV Q12HR [facility]A Heparin Sodium (Porcine) 0 unit 12/24/20 07:09 Heparin Sodium 1,000 Un/Ml (10ml Vl) IV PER PROTOCOL PRN Low PTT Protocol Norepinephrine Bitartrate 4 mg 254 mls @ 25.923 mls/hr 12/24/20 02:45 12/24/20 06:04 / Sodium Chloride IV Infused .Q9H48M [facility] Titration Protocol 0.1 MCG/KG/MIN Dextrose/Sodium Chloride 1,000 mls @ 100 mls/hr 12/24/20 03:17 12/24/20 05:10 Dextrose 5%-1/2ns Iv Soln IV 12/24/20 13:16 100 mls/hr .Q10H ONE Administration Norepinephrine Bitartrate 32 250 mls @ 1.595 mls/hr 12/24/20 03:31 12/24/20 05:07 mg/ Sodium Chloride IV 12/25/20 03:30 0.46 mcg/kg/min .Q24H [facility] 14.671 mls/hr Titration Protocol 0.05 MCG/KG/MIN Midazolam HCl 50 mg/ Sodium 50 mls @ 5 mls/hr 12/24/20 05:00 12/24/20 06:16 Chloride IV Not Given .Q10H [facility] Protocol 5 MG/HR Heparin Sodium/Sodium Chloride 250 mls @ 12.247 mls/hr 12/24/20 07:15 25,000 unit/ Sodium Chloride IV .[id number] [facility] Protocol 18 UNITS/KG/HR Propofol 1,000 mg/ IV Solution 100 mls @ 0 mls/hr 12/24/20 08:30 IV .Q0M [facility] Protocol Titrate Dobutamine HCl/Dextrose 500 mg 250 mls @ 5.103 mls/hr 12/24/20 09:00 12/24/20 09:25 / IV Solution IV 2.5 mcg/kg/min .Q24H [facility] 5.103 mls/hr Administration 2.5 MCG/KG/MIN Cefepime HCl 1 gm/ Sodium 50 mls @ 12.5 mls/hr 12/24/20 21:00 Chloride IVPB Q12HR [facility] Naloxone HCl 0.2 mg 12/24/20 04:35 Naloxone 0.4 Mg/Ml 1 Ml Vial IV Q2M PRN Opioid Reversal Intake and Output 12/23/20 12/24/20 12/24/20 22:59 06:59 14:59 Intake Total 545.612 100 Output Total 25 Balance 545.612 75 Intake: IV 200 100 Dextrose 5%-0.45% NaCl 1, 200 100 000 ml @ 100 mls/hr IV . Q10H [facility] Rx#:[id number] Intake, IV Titration 345.612 Amount Norepinephrine 32 mg In 8.474 Sodium Chloride 0.9% 218 ml @ 0.05 MCG/KG/MIN 1. 595 mls/hr IV .Q24H [facility] Rx#:[id number] Norepinephrine 4 mg In 336.305 Sodium Chloride 0.9% 250 ml @ 0.1 MCG/KG/MIN 25. 923 mls/hr IV .Q9H48M [facility] Rx#:[id number] fentaNYL (PF). 1,000 mcg 0.833 In Sodium Chloride 0.9% 80 ml @ Per Protocol IV . Q0M [facility] Rx#:[id number] Output: Urine 25 Other: Voiding Method Indwelling Catheter Weight 68.039 kg 80.6 kg Patient Weight 12/25/20 06:59 Weight 80.6 kg 12/24/20 03:20 12/24/20 03:20
[2020-12-24 10:54] VITALS: RESP 18
[2020-12-24 14:01] LABS: Glucose,Whole Blood 230 mg/dL (75-99)
[2020-12-24 14:08] LABS: ABG Base Excess -12.2 mmol/L; ABG HCO3 14 mmol/L (21-25); ABG Oxygen Saturation 98.5 % (94-97); ABG PCO2 29 mmHg (35-45); ABG PO2 139 mmHg (83-108); ABG TCO2 15 mmol/L (19-24)
[2020-12-24 14:10] LABS: Allen Test Performed? no
[2020-12-24 14:21] LABS: Calcium 6.7 mg/dL (8.4-10.2); Magnesium 1.9 mg/dL (1.6-2.3); Potassium 4.2 mmol/L (3.5-5.1)
[2020-12-24] MEDS ORDERED: DEXTROSE 5% IN WATER 1,000 ML with SODIUM BICARB (1 MEQ/ML) 150 ML IV SCH (15:00)
[2020-12-24 15:52] LABS: Albumin 2.6 g/dL (3.5-5.0); Calcium 8.4 mg/dL (8.4-10.2); Potassium 3.7 mmol/L (3.5-5.1); Total Bilirubin 0.8 mg/dL (0.2-1.3)
--- NOTE | 2020-12-24 16:03 | P.EN ---
CODE BLUE note: Arrived to seem to find CPR in progress by nursing. Patient had initially gone into V. tach but by the time Were applied went into asystole. She was administe red 1 of appendectomy, 1 she can't, and one of calcium gluconate. She had ROSC. She continued to go in and out of V fib and Third degree heart block, with marginal blood pressure and loss of pulse multiple times. She underwent Defib X 7, unable to hang amio due to thrid degree each time she can out of V fib. We attempted to externally pace the patient and she again went into V fib. She was given one more dose of calcium. Again we attempted to pace her at 100, but were unable to pace her out of V fib. Dr. Garcia and myself spoke with the who stated that she would not want to be kept alive if she wasn't able to take care of her self. All resuscitative efforts were stopped. She quickly went back into V tach and subsequently passed at 1546. Dr. Nova was at bedside for part of the CODE BLUE response. See Code Blue Note for detailed information. Dr Ritchie was contacted and informed. Dr. Rosa notified by edy A total of 40 minutes of critical care time was spent with this complex patient. DX: V fib Third degree heart block
[2020-12-24 16:40] VITALS: BP 147/74; PULSE 56
--- NOTE | 2020-12-24 19:42 | P.HPIM ---
History of Present Illness H&P Date: 12/24/20 Chief Complaint: Cardiogenic shock 75-year-old female presented to the emergency department with generalized malaise, shortness of breath and dysuria. Patient additional complaints of increase weakness, decreased appetite and decrease oral intake for the last few days. Patient was recently treated with oral antibiotics for urinary tract infection an outpatient .Patient has significant medical history of atrial fibrillation on anticoagulation therapy;other significant history of asthma, angina, GERD/Reflux, hypertension, history of myocardial Infarction,history of pulmonary embolus, history of DVT,and additional multiple comorbidities.Throughout the emergency department stay, patient became lethargic with associated hypotension and a fib with a wide complex. The emergency department started aggressive fluid resuscitation with minimal response; despite fluid resuscitation patient became progressive lethargic with associated bradycardia, and hypotension. The emergency department place a central line for IV vasopressors for for hypotension. Patient had a episode of cardiac arrest, Advanced cardio life-support was initiated, the emergency department was able to regain pulses. Patient was intubated, and placed on dopamine drip and norepinephrine drip to maintain blood pressure and heart rate. December 24, 2020 0600 evaluated patient in the ICU, patient intubated with norepinephrine and dopamine infusing to maintain blood pressure and heart rate. Pulmonary critical care was contacted regarding recommendations for stat echocardiogram and repeat chest x- ray. Patient remained on norepinephrine and dopamine infusions to maintain cardiac output. Cardiology was consulted for recommendations and treatment plan regarding atrial fibrillation with wide complex.Patient is in critical condition, arterial blood gases demonstrate severe acidosis, acute renal failure, and cardiogenic shock. Review of Systems ROS unobtainable: due to endotracheal tube, due to mental status Past Medical History Past Medical History: Atrial Fibrillation, Asthma, Cancer, Chest Pain / Angina, Deep Vein Thrombosis (DVT), GERD/Reflux, Hearing Disorder / Deafness, Hypertension, Myocardial Infarction ([place]), Pulmonary Embolus ([place]) Additional Past Medical History / Comment(s): heart murmur, PE Lt lung 2012, DVT Lt thigh 2012, RECTAL CANCER 2010(NO [place]), NONHODGKINS LYMPHOMA 2012 WITH CHEMO. , HX OF POSITIVE TB SKIN TEST WITH TX (1984?)., BACK PAIN. Last Myocardial Infarction Date:: unknown History of Any Multi-Drug Resistant Organisms: None Reported Past Surgical History: Appendectomy, Breast Surgery, Section, Cholecystectomy, Hysterectomy Additional Past Surgical History / Comment(s): IV ACCESS PORT, BREAST BX, LYMPH NODE BX, X2 Past Anesthesia/Blood Transfusion Reactions: No Reported Reaction Additional Past Anesthesia/Blood Transfusion Reaction / Comment(s): DIFFICULTY WAKING UP Past Psychological History: Anxiety, Depression Smoking Status: Never smoker Past Alcohol Use History: Rare Past Drug Use History: None Reported - Past Family History father Family Medical History: Deep Vein Thrombosis (DVT) Medications and Allergies Home Medications and Allergies Comment(s): Medications and allergies reviewed Home Medications Medication Instructions Recorded Confirmed Type Zolpidem Tartrate [Ambien] 10 mg PO HS PRN 08/05/14 12/24/20 History traMADol HCl [Ultram] 50 - 100 mg PO TID PRN 08/05/14 12/24/20 History Naproxen Sodium [Aleve] 220 mg PO Q12HR PRN 10/27/18 12/24/20 History Cholecalciferol [Vitamin D3 (25 4,000 unit PO DAILY 07/30/19 12/24/20 History Mcg = 1000 Iu)] Ibuprofen [Advil] 200 mg PO DAILY PRN 07/30/19 12/24/20 History Multivit with Calcium,Iron,Min 1 tab PO DAILY 07/30/19 12/24/20 History [Women's Multivitamin] Citalopram Hydrobromide [CeleXA] 40 mg PO DAILY 08/02/20 12/24/20 History Cyclobenzaprine [Flexeril] 5 mg PO TID PRN 08/02/20 12/24/20 History Levocetirizine Dihydrochloride 5 mg PO DAILY PRN 08/02/20 12/24/20 History [Xyzal] Levothyroxine Sodium [Synthroid] 25 mcg PO DAILY 08/02/20 12/24/20 History Metoprolol Succinate (ER) [Toprol 25 mg PO DAILY 08/02/20 12/24/20 History XL] Simvastatin [Zocor] 40 mg PO DAILY 08/02/20 12/24/20 History Apixaban [Eliquis] 5 mg PO BID 12/24/20 12/24/20 History Flecainide Acetate 100 mg PO BID 12/24/20 12/24/20 History Magnesium Oxide [Spangler] 500 mg PO DAILY 12/24/20 12/24/20 History Allergies Allergy/AdvReac Type Severity Reaction Status Date / Time Penicillins Allergy Severe throat Verified 12/23/20 22:33 swelling Sulfa (Sulfonamide Allergy Swelling Verified 12/23/20 22:33 Antibiotics) Physical Exam Vitals: Vital Signs Temp Pulse Pulse Resp BP BP Pulse Ox 12/24/20 16:30 147/74 12/24/20 14:30 56 L 18 98 12/24/20 14:00 59 L 18 99 12/24/20 13:30 56 L 18 99 12/24/20 13:00 58 L 18 99 12/24/20 12:30 58 L 18 99 12/24/20 12:00 57 L 18 99 12/24/20 11:30 59 L 18 97 12/24/20 11:18 60 12/24/20 11:06 60 12/24/20 11:00 61 18 97 12/24/20 10:30 64 18 99 12/24/20 10:00 60 18 96 12/24/20 09:30 58 L 18 98 12/24/20 09:00 63 18 97 12/24/20 08:30 73 20 108/56 97 12/24/20 08:00 73 18 112/49 97 12/24/20 07:30 73 18 117/49 97 12/24/20 07:19 72 12/24/20 07:00 71 71 18 110/41 114/39 99 12/24/20 06:30 74 16 100/50 96 12/24/20 06:22 79 18 118/20 97 12/24/20 06:15 72 20 117/51 95 12/24/20 06:00 98.7 F 71 23 85/57 93 L 12/24/20 05:31 53 L 18 117/39 97 12/24/20 05:30 67/43 12/24/20 05:23 73 18 112/38 97 12/24/20 05:17 70 18 110/47 98 12/24/20 05:15 72 18 88/53 97 12/24/20 05:06 71 18 101/46 97 12/24/20 05:02 72 18 87/37 96 12/24/20 05:00 71 18 67/43 98 12/24/20 04:49 71 18 82/40 97 12/24/20 04:45 80 18 87/37 97 12/24/20 04:30 71 18 67/43 96 12/24/20 04:14 75 18 117/32 98 12/24/20 04:00 67/43 12/24/20 03:53 80 18 58/40 97 12/24/20 03:30 67/43 12/24/20 03:19 58 L 18 72/47 97 12/24/20 03:00 67/43 12/24/20 02:54 60 18 71/37 97 12/24/20 02:48 52 L 18 67/47 98 12/24/20 02:35 55 L 18 66/42 95 12/24/20 02:30 67/43 12/24/20 02:17 78 18 78/50 98 12/24/20 01:43 82 18 81/54 96 12/24/20 01:10 80 16 71/46 96 12/24/20 00:05 81 16 87/58 95 12/23/20 23:01 98 18 104/64 100 12/23/20 22:35 20 12/23/20 22:29 101 H 20 100/69 100 Intake and Output 12/24/20 12/24/20 12/24/20 06:59 14:59 22:59 Intake Total 545.612 602.784 Output Total 50 Balance 545.612 552.784 Intake: IV 200 400 Dextrose 5%-0.45% NaCl 1, 200 400 000 ml @ 100 mls/hr IV . Q10H [facility] Rx#:[id number] Intake, IV Titration 345.612 202.784 Amount Cefepime 1 gm In Sodium 50 Chloride 0.9% 50 ml @ 12. 5 mls/hr IVPB Q12HR [facility] Rx#:[id number] Norepinephrine 32 mg In 8.474 123.768 Sodium Chloride 0.9% 218 ml @ 0.05 MCG/KG/MIN 1. 595 mls/hr IV .Q24H [facility] Rx#:[id number] Norepinephrine 4 mg In 336.305 Sodium Chloride 0.9% 250 ml @ 0.1 MCG/KG/MIN 25. 923 mls/hr IV .Q9H48M [facility] Rx#:[id number] fentaNYL (PF). 1,000 mcg 0.833 In Sodium Chloride 0.9% 80 ml @ Per Protocol IV . Q0M [facility] Rx#:[id number] propofoL 1,000 mg In 29.016 Empty Bag 1 bag @ Titrate IV .Q0M [facility] Rx#: [id number] Output: Urine 50 Other: Voiding Method Indwelling Catheter Indwelling Catheter Weight 80.6 kg ABP, PAP, CO, CI - Last 8 Hours Arterial Blood Pressure 125/55 Arterial Blood Pressure 139/59 Arterial Blood Pressure 135/61 Arterial Blood Pressure 139/65 Arterial Blood Pressure 136/63 Arterial Blood Pressure 135/63 Arterial Blood Pressure 131/59 - Constitutional General appearance: severe distress - EENT Ears: bilateral: normal - Neck Thyroid: bilateral: normal size - Respiratory Respiratory: bilateral: rales (Anterior and posterior lung recinos) - Cardiovascular Atrial fibrillation with a wide complex Heart rate: 71 Rhythm: regularly irregular Heart sounds: normal: S1, S2 radial pulse Peripheral Pulses: bilateral: Diminished - Gastrointestinal Oral gastric tube in place - Integumentary Integumentary: pale Results CBC & Chem 7: 12/24/20 03:20 12/24/20 15:32 Labs: Abnormal Lab Results - Last 24 Hours (Table) 12/23/20 12/23/20 12/23/20 Range/Units 22:55 22:55 22:55 WBC 11.0 H (3.8-10.6) k/uL MCHC (31.0-37.0) g/dL Neutrophils # 8.2 H (1.3-7.7) k/uL PT 13.3 H (9.0-12.0) sec INR 1.3 H (<1.2) ABG pH (7.35-7.45) ABG pCO2 (35-45) mmHg ABG pO2 (83-108) mmHg ABG HCO3 (21-25) mmol/L ABG Total CO2 (19-24) mmol/L ABG O2 Saturation (94-97) % VBG pH (7.31-7.41) VBG HCO3 (24-28) mmol/L Sodium 128 L (137-145) mmol/L Chloride 94 L (98-107) mmol/L Carbon Dioxide (22-30) mmol/L BUN 31 H (7-17) mg/dL Creatinine 1.56 H (0.52-1.04) mg/dL Glucose 143 H (74-99) mg/dL POC Glucose (mg/dL) (75-99) mg/dL Plasma Lactic Acid Mt (0.7-2.0) mmol/L Calcium (8.4-10.2) mg/dL AST 230 H (14-36) U/L ALT 475 H (4-34) U/L Alkaline Phosphatase 127 H (38-126) U/L Total Protein 6.0 L (6.3-8.2) g/dL Albumin (3.5-5.0) g/dL Urine Appearance (Clear) Urine Protein (Negative) Ur Leukocyte Esterase (Negative) Urine WBC (0-5) /hpf Urine WBC Clumps (None) /hpf Urine Bacteria (None) /hpf Hyaline Casts (0-2) /lpf Urine Mucus (None) /hpf 12/24/20 12/24/20 12/24/20 Range/Units 02:07 02:41 03:20 WBC 13.7 H (3.8-10.6) k/uL MCHC 30.0 L (31.0-37.0) g/dL Neutrophils # 9.1 H (1.3-7.7) k/uL PT (9.0-12.0) sec INR (<1.2) ABG pH (7.35-7.45) ABG pCO2 (35-45) mmHg ABG pO2 (83-108) mmHg ABG HCO3 (21-25) mmol/L ABG Total CO2 (19-24) mmol/L ABG O2 Saturation (94-97) % VBG pH (7.31-7.41) VBG HCO3 (24-28) mmol/L Sodium (137-145) mmol/L Chloride (98-107) mmol/L Carbon Dioxide (22-30) mmol/L BUN (7-17) mg/dL Creatinine (0.52-1.04) mg/dL Glucose (74-99) mg/dL POC Glucose (mg/dL) 137 H (75-99) mg/dL Plasma Lactic Acid Mt (0.7-2.0) mmol/L Calcium (8.4-10.2) mg/dL AST (14-36) U/L ALT (4-34) U/L Alkaline Phosphatase (38-126) U/L Total Protein (6.3-8.2) g/dL Albumin (3.5-5.0) g/dL Urine Appearance Cloudy H (Clear) Urine Protein 2+ H (Negative) Ur Leukocyte Esterase Trace H (Negative) Urine WBC 9 H (0-5) /hpf Urine WBC Clumps Rare H (None) /hpf Urine Bacteria Rare H (None) /hpf Hyaline Casts 56 H (0-2) /lpf Urine Mucus Rare H (None) /hpf 12/24/20 12/24/20 12/24/20 Range/Units 03:20 03:20 03:20 WBC (3.8-10.6) k/uL MCHC (31.0-37.0) g/dL Neutrophils # (1.3-7.7) k/uL PT (9.0-12.0) sec INR (<1.2) ABG pH (7.35-7.45) ABG pCO2 (35-45) mmHg ABG pO2 (83-108) mmHg ABG HCO3 (21-25) mmol/L ABG Total CO2 (19-24) mmol/L ABG O2 Saturation (94-97) % VBG pH 7.10 L* (7.31-7.41) VBG HCO3 14 L (24-28) mmol/L Sodium 129 L (137-145) mmol/L Chloride (98-107) mmol/L Carbon Dioxide 16 L (22-30) mmol/L BUN 27 H (7-17) mg/dL Creatinine 1.78 H (0.52-1.04) mg/dL Glucose 215 H (74-99) mg/dL POC Glucose (mg/dL) (75-99) mg/dL Plasma Lactic Acid Mt 5.4 H* (0.7-2.0) mmol/L Calcium 6.9 L (8.4-10.2) mg/dL AST 257 H (14-36) U/L ALT 416 H (4-34) U/L Alkaline Phosphatase 178 H (38-126) U/L Total Protein 5.2 L (6.3-8.2) g/dL Albumin 2.8 L (3.5-5.0) g/dL Urine Appearance (Clear) Urine Protein (Negative) Ur Leukocyte Esterase (Negative) Urine WBC (0-5) /hpf Urine WBC Clumps (None) /hpf Urine Bacteria (None) /hpf Hyaline Casts (0-2) /lpf Urine Mucus (None) /hpf 12/24/20 12/24/20 12/24/20 Range/Units 03:46 06:07 06:11 WBC (3.8-10.6) k/uL MCHC (31.0-37.0) g/dL Neutrophils # (1.3-7.7) k/uL PT (9.0-12.0) sec INR (<1.2) ABG pH 7.07 L* 7.17 L* (7.35-7.45) ABG pCO2 46 H (35-45) mmHg ABG pO2 78 L (83-108) mmHg ABG HCO3 13 L 16 L (21-25) mmol/L ABG Total CO2 15 L 17 L (19-24) mmol/L ABG O2 Saturation 86.4 L 92.1 L (94-97) % VBG pH (7.31-7.41) VBG HCO3 (24-28) mmol/L Sodium (137-145) mmol/L Chloride (98-107) mmol/L Carbon Dioxide (22-30) mmol/L BUN (7-17) mg/dL Creatinine (0.52-1.04) mg/dL Glucose (74-99) mg/dL POC Glucose (mg/dL) 214 H (75-99) mg/dL Plasma Lactic Acid Mt (0.7-2.0) mmol/L Calcium (8.4-10.2) mg/dL AST (14-36) U/L ALT (4-34) U/L Alkaline Phosphatase (38-126) U/L Total Protein (6.3-8.2) g/dL Albumin (3.5-5.0) g/dL Urine Appearance (Clear) Urine Protein (Negative) Ur Leukocyte Esterase (Negative) Urine WBC (0-5) /hpf Urine WBC Clumps (None) /hpf Urine Bacteria (None) /hpf Hyaline Casts (0-2) /lpf Urine Mucus (None) /hpf 12/24/20 12/24/20 12/24/20 Range/Units 06:51 09:31 10:10 WBC (3.8-10.6) k/uL MCHC (31.0-37.0) g/dL Neutrophils # (1.3-7.7) k/uL PT (9.0-12.0) sec INR (<1.2) ABG pH 7.15 L* (7.35-7.45) ABG pCO2 29 L (35-45) mmHg ABG pO2 206 H (83-108) mmHg ABG HCO3 10 L* (21-25) mmol/L ABG Total CO2 11 L (19-24) mmol/L ABG O2 Saturation 98.5 H (94-97) % VBG pH (7.31-7.41) VBG HCO3 (24-28) mmol/L Sodium (137-145) mmol/L Chloride (98-107) mmol/L Carbon Dioxide (22-30) mmol/L BUN (7-17) mg/dL Creatinine (0.52-1.04) mg/dL Glucose (74-99) mg/dL POC Glucose (mg/dL) (75-99) mg/dL Plasma Lactic Acid Mt 6.1 H* 7.3 H* (0.7-2.0) mmol/L Calcium (8.4-10.2) mg/dL AST (14-36) U/L ALT (4-34) U/L Alkaline Phosphatase (38-126) U/L Total Protein (6.3-8.2) g/dL Albumin (3.5-5.0) g/dL Urine Appearance (Clear) Urine Protein (Negative) Ur Leukocyte Esterase (Negative) Urine WBC (0-5) /hpf Urine WBC Clumps (None) /hpf Urine Bacteria (None) /hpf Hyaline Casts (0-2) /lpf Urine Mucus (None) /hpf 12/24/20 12/24/20 12/24/20 Range/Units 13:11 14:00 14:00 WBC (3.8-10.6) k/uL MCHC (31.0-37.0) g/dL Neutrophils # (1.3-7.7) k/uL PT (9.0-12.0) sec INR (<1.2) ABG pH (7.35-7.45) ABG pCO2 (35-45) mmHg ABG pO2 (83-108) mmHg ABG HCO3 (21-25) mmol/L ABG Total CO2 (19-24) mmol/L ABG O2 Saturation (94-97) % VBG pH (7.31-7.41) VBG HCO3 (24-28) mmol/L Sodium 133 L (137-145) mmol/L Chloride (98-107) mmol/L Carbon Dioxide 14 L (22-30) mmol/L BUN 30 H (7-17) mg/dL Creatinine 2.23 H (0.52-1.04) mg/dL Glucose 227 H (74-99) mg/dL POC Glucose (mg/dL) 230 H (75-99) mg/dL Plasma Lactic Acid Mt 7.5 H* (0.7-2.0) mmol/L Calcium 6.7 L (8.4-10.2) mg/dL AST (14-36) U/L ALT (4-34) U/L Alkaline Phosphatase (38-126) U/L Total Protein (6.3-8.2) g/dL Albumin (3.5-5.0) g/dL Urine Appearance (Clear) Urine Protein (Negative) Ur Leukocyte Esterase (Negative) Urine WBC (0-5) /hpf Urine WBC Clumps (None) /hpf Urine Bacteria (None) /hpf Hyaline Casts (0-2) /lpf Urine Mucus (None) /hpf 12/24/20 12/24/20 Range/Units 14:05 15:32 WBC (3.8-10.6) k/uL MCHC (31.0-37.0) g/dL Neutrophils # (1.3-7.7) k/uL PT (9.0-12.0) sec INR (<1.2) ABG pH 7.30 L (7.35-7.45) ABG pCO2 29 L (35-45) mmHg ABG pO2 139 H (83-108) mmHg ABG HCO3 14 L (21-25) mmol/L ABG Total CO2 15 L (19-24) mmol/L ABG O2 Saturation 98.5 H (94-97) % VBG pH (7.31-7.41) VBG HCO3 (24-28) mmol/L Sodium 136 L (137-145) mmol/L Chloride (98-107) mmol/L Carbon Dioxide 17 L (22-30) mmol/L BUN 32 H (7-17) mg/dL Creatinine 2.29 H (0.52-1.04) mg/dL Glucose 227 H (74-99) mg/dL POC Glucose (mg/dL) (75-99) mg/dL Plasma Lactic Acid Mt (0.7-2.0) mmol/L Calcium (8.4-10.2) mg/dL AST 6593 H (14-36) U/L ALT 4374 H (4-34) U/L Alkaline Phosphatase 147 H (38-126) U/L Total Protein 5.0 L (6.3-8.2) g/dL Albumin 2.6 L (3.5-5.0) g/dL Urine Appearance (Clear) Urine Protein (Negative) Ur Leukocyte Esterase (Negative) Urine WBC (0-5) /hpf Urine WBC Clumps (None) /hpf Urine Bacteria (None) /hpf Hyaline Casts (0-2) /lpf Urine Mucus (None) /hpf Microbiology - Last 24 Hours (Table) 12/24/20 11:14 Sputum Culture - Preliminary Sputum Chest x-ray: report reviewed (Echocardiogram pending) Thrombosis Risk Factor Assmnt - Choose All That Apply Each Factor Represents 1 point: Obesity (BMI >25) Each Risk Factor Represents 3 Points: Age 75 years or older, Family history of DVT/PE, History of DVT/PE Thrombosis Risk Factor Assessment Total Risk Factor Score: 10 Thrombosis Risk Factor Assessment Level: High Risk Assessment and Plan Assessment: Acute cardiac arrest with approximate downtown of 8 minutes with spontaneous of circulation. Acute hypoxic respiratory failure secondary to cardiac arrest coronary artery disease atrial fibrillation on anticoagulation therapy history of DVT and pulmonary embolism on anticoagulation therapy severe metabolic acidosis acute kidney injury chronic bronchial asthma history of chronic back pain acute urinary tract infection treated on outpatient basis history of non-Hodgkin's lymphoma from 2012 treated with systemic chemotherapy history of rectal cancer in 2010 with surgical resection abnormal liver function possibly due to cardiac arrest a Plan: Acute cardiac arrest with approximate downtown of 8 minutes with spontaneous of circulation.Continue mechanical ventilation, norepinephrine and dopamine drip to maintain hemodynamic stability; consultation with pulmonary critical care to manage ventilator and vasoactive drugs Acute hypoxic respiratory failure secondary to cardiac arrest, Continue mechanical ventilation, continue consultation with pulmonary critical care for ventilation management coronary artery disease, Consultation with cardiology for recommendations and treatment plan atrial fibrillation on anticoagulation therapy, High dose heparin drip severe metabolic acidosis, Continue IV hydration and management from pulmonary critical care acute kidney injury, Strict intake and output Stat echocardiogram ordered at bedside continue to monitor vital signs and diagnostic testing continue medical management with expert opinion from pulmonary critical care and cardiology patient in critical condition, spoke with pulmonary critical care will manage critical patient Time with Patient: Greater than 30
--- NOTE | 2020-12-24 19:54 | P.DS ---
Providers Date of admission: 12/24/20 04:36 Expected date of discharge: 12/24/20 Attending physician: Sukumar Rosa Consults: 12/24/20 04:35 Consult Physician Routine Consulting Provider: Nancy Ritchie Consult Reason/Comments: icu Do you want consulting provider notified?: Yes Consult Physician Routine Consulting Provider: Scooter Rogers Consult Reason/Comments: chf Do you want consulting provider notified?: Yes Primary care physician: Sukumar Rosa Hospital Course: 75-year-old female presented to the emergency department with generalized malaise, shortness of breath and dysuria. Patient additional complaints of increase weakness, decreased appetite and decrease oral intake for the last few days. Patient was recently treated with oral antibiotics for ur inary tract infection an outpatient .Patient has significant medical history of atrial fibrillation on anticoagulation therapy;other significant history of asthma, angina, GERD/Reflux, hypertension, history of myocardial Infarction,history of pulmonary embolus, history of DVT,and additional multiple comorbidities.Throughout the emergency department stay, patient became lethargic with associated hypotension and a fib with a wide complex. The emergency department started aggressive fluid resuscitation with minimal response; despite fluid resuscitation patient became progressive lethargic with associated bradycardia, and hypotension. The emergency department place a central line for IV vasopressors for for hypotension. Patient had a episode of cardiac arrest, Advanced cardio life-support was initiated, the emergency department was able to regain pulses. Patient was intubated, and placed on dopamine drip and norepinephrine drip to maintain blood pressure and heart rate. December 24, 2020 0600 evaluated patient in the ICU, patient intubated with norepinephrine and dopamine infusing to maintain blood pressure and heart rate. Pulmonary critical care was contacted regarding recommendations for stat echocardiogram and repeat chest x- ray. Patient remained on norepinephrine and dopamine infusions to maintain cardiac output. Cardiology was consulted for recommendations and treatment plan regarding atrial fibrillation with wide complex.Patient is in critical condition, arterial blood gases demonstrate severe acidosis, acute renal failure, and cardiogenic shock. December 24, 2020 Notified by intensive care staff code blue was in process for approximately 40 minutes patient went into 3rd heart block, advanced cardiac life support was initiated. Patient at 1644 Assessment: Acute cardiac arrest with approximate downtown of 8 minutes with spontaneous of circulation. Acute hypoxic respiratory failure secondary to cardiac arrest coronary artery disease atrial fibrillation on anticoagulation therapy history of DVT and pulmonary embolism on anticoagulation therapy severe metabolic acidosis acute kidney injury chronic bronchial asthma history of chronic back pain acute urinary tract infection treated on outpatient basis history of non-Hodgkin's lymphoma from 2013 treated with systemic chemotherapy history of rectal cancer in 2010 with surgical resection abnormal liver function possibly due to cardiac arrest Health Concerns: None noted Pertinent Studies: Serial chest x-rays echocardiogram Procedures: Endotracheal intubation central line placement arterial line placement Patient Condition at Discharge: Undetermined Plan - Discharge Summary New Discharge Prescriptions: Discontinued traMADol HCl [Ultram] 50 - 100 mg PO TID PRN PRN Reason: Pain Zolpidem Tartrate [Ambien] 10 mg PO HS PRN PRN Reason: Insomnia Naproxen Sodium [Aleve] 220 mg PO Q12HR PRN PRN Reason: Pain Ibuprofen [Advil] 200 mg PO DAILY PRN PRN Reason: Headache Cholecalciferol [Vitamin D3 (25 Mcg = 1000 Iu)] 4,000 unit PO DAILY Multivit with Calcium,Iron,Min [Women's Multivitamin] 1 tab PO DAILY Simvastatin [Zocor] 40 mg PO DAILY Metoprolol Succinate (ER) [Toprol XL] 25 mg PO DAILY Cyclobenzaprine [Flexeril] 5 mg PO TID PRN PRN Reason: Muscle Spasm Citalopram Hydrobromide [CeleXA] 40 mg PO DAILY Levothyroxine Sodium [Synthroid] 25 mcg PO DAILY Levocetirizine Dihydrochloride [Xyzal] 5 mg PO DAILY PRN PRN Reason: Allergy Symptoms Magnesium Oxide [Spangler] 500 mg PO DAILY Apixaban [Eliquis] 5 mg PO BID Flecainide Acetate 100 mg PO BID Follow up Appointment(s)/Referral(s): Sukumar Rosa MD [Primary Care Provider] - 1-2 days Discharge Disposition: - Preliminary Cause of Preliminary Cause of : Cardiopulmonary arrest
[2020-12-24] MEDS ORDERED: CEFEPIME 1 GM in SODIUM CHLORIDE 0.9% 50 ML IVPB SCH (21:00)
--- NOTE | 2021-01-19 15:04 | CDI ---
Documentation Clarification Form Date: 01/19/2021 02:47:05 PM From: Alissa TraylorAmezcuaDARIELA moses, CCDS Admit Date: 12/24/2020 04:36:00 AM Patient Name: Wanda Chu Visit Number: [id number] Discharge Date: 12/24/2020 06:14:00 PM ATTENTION: The Clinical Documentation Specialists (CDI) and [facility] Coding Staff appreciate your assistance in clarifying documentation. Please respond to the clarification below the line at the bottom and electronically sign. The CDI & [facility] Coding staff will review the response and follow-up if needed. Please note: Queries are made part of the Legal Health Record. If you have any questions, please contact the author of this message via ITS. Dr. Sukumar Rosa: The patient presented with the following clinical indicators: SOB, currently on antibiotics for a UTI, Dry mouth, Increased Weakness, Decreased Appetite and Decreased oral intake. Additional clarification regarding the etiology/cause of the clinical indicators is requested. History/Risk Factors per the 12/23 ED Note: Atrial Fibrillation, CAD, Asthma, Hypertension, Myocardial Infarction, PE, DVT, GERD, Rectal Cancer status post surgery, Non-Hodgkin's Lymphoma status post Chemotherapy. Clinical Indicators: Presented to the ED on 12/23 via EMS with the above mentioned signs & symptoms. Was in Atrial Fibrillation with RVR, Heart dropped in ED with episode of cardiopulmonary arrest, responded to CPR. ED Clinical Impression: NSTEMI, Acute Exacerbation COPD, Acute Respiratory Failure, Acute Pulmonary Edema, CHF, Lactic Acidosis, Shock, Cardiogenic Shock, UTI. 12/23 VS: T ( ), P 101 - 80, R 20 (SOB, cough), BP 100/69 - 104/64, PO 100 RA, BMI: 32.5 12/23 LAB: WBC 11.0, Neut 8.2, Na 128, BUN 31, Cr 1.56, Lactic Acid 5.4, 6.1, 7.3, 7.5; AST 230, ALT 475, Alk Phos 127 12/24 Blood Gas ABG: pH 7/07, pCO2 46, pO2 78, HCO3 13, Total CO2 15, O2 Sat 86.4. 12/24 Blood Gas VBG HCO 3 14 12/24 UA: Cloudy, 2+ protein, Trace esterase, WBC 9 12/24 CXR: Cardiomegaly, Mild atelectasis medial right lung base. Treatment 12/23: IV Lopressor, IV Na Cl 1,000 mls @ 999 mls/hr q1H x2, IV Solumedrol 125 mg x1. 12/24: Intubated, Central Line, Arterial Line, NGT, IV Na Cl 1,000 mls @ 999 mls/hr q1H, IV Amiodarone, IV Quelicin, IV Levophed, IV Dopamine, IV NaBicarb, IV Rocephin. In your professional opinion, please clarify if these findings signify one of the following conditions: [ X ] Sepsis POA (Template Last Reviewed: August 2020) MTDD
== END 2020-12-24 18:14 | disposition expired | DRG 871 ==
LOC: EC 22:26 → 2SICU 12-24 04:36
PROVIDERS: ADMIT Family Medicine; ATTEND Family Medicine
PROC: 5A1935Z Respiratory Ventilation, Less than 24 Consecutive Hours (ICD-10-PCS; principal; 2020-12-24)
PROC: 0BH17EZ Insertion of Endotracheal Airway into Trachea, Via Natural or Artificial Opening (ICD-10-PCS; principal; 2020-12-24)
PROC: 3E043XZ Introduction of Vasopressor into Central Vein, Percutaneous Approach (ICD-10-PCS; 2020-12-24)
PROC: 5A12012 Performance of Cardiac Output, Single, Manual (ICD-10-PCS; 2020-12-24)
PROC: 0D9670Z Drainage of Stomach with Drainage Device, Via Natural or Artificial Opening (ICD-10-PCS; 2020-12-24)
PROC: 02HV33Z Insertion of Infusion Device into Superior Vena Cava, Percutaneous Approach (ICD-10-PCS; 2020-12-24)
PROC: B5181ZA Fluoroscopy of Superior Vena Cava using Low Osmolar Contrast, Guidance (ICD-10-PCS; 2020-12-24)
PROC: B548ZZA Ultrasonography of Superior Vena Cava, Guidance (ICD-10-PCS; 2020-12-24)
PROC: 4A133B1 Monitoring of Arterial Pressure, Peripheral, Percutaneous Approach (ICD-10-PCS; 2020-12-24)
PROC: 4A133J1 Monitoring of Arterial Pulse, Peripheral, Percutaneous Approach (ICD-10-PCS; 2020-12-24)
DX: A41.9 Sepsis, unspecified organism (principal); I50.21 Acute systolic (congestive) heart failure; R65.21 Severe sepsis with septic shock; J96.01 Acute respiratory failure with hypoxia; E87.2 Acidosis; J44.1 Chronic obstructive pulmonary disease with (acute) exacerbation; N17.9 Acute kidney failure, unspecified; N39.0 Urinary tract infection, site not specified; I44.2 Atrioventricular block, complete; E66.9 Obesity, unspecified; I46.8 Cardiac arrest due to other underlying condition; I11.0 Hypertensive heart disease with heart failure; I25.10 Atherosclerotic heart disease of native coronary artery without angina pectoris; I48.0 Paroxysmal atrial fibrillation; Z20.822 Contact with and (suspected) exposure to COVID-19; R57.0 Cardiogenic shock; I08.1 Rheumatic disorders of both mitral and tricuspid valves; E78.5 Hyperlipidemia, unspecified; R79.89 Other specified abnormal findings of blood chemistry; F32.9 Major depressive disorder, single episode, unspecified; F41.9 Anxiety disorder, unspecified; H91.90 Unspecified hearing loss, unspecified ear; Z68.32 Body mass index [BMI] 32.0-32.9, adult; S10.83XA Contusion of other specified part of neck, initial encounter; J45.909 Unspecified asthma, uncomplicated; Z66 Do not resuscitate; K21.9 Gastro-esophageal reflux disease without esophagitis; I25.2 Old myocardial infarction; I27.20 Pulmonary hypertension, unspecified; I49.8 Other specified cardiac arrhythmias; Z79.01 Long term (current) use of anticoagulants; Z79.890 Hormone replacement therapy; Z79.899 Other long term (current) drug therapy; Z85.048 Personal history of other malignant neoplasm of rectum, rectosigmoid junction, and anus; Z85.72 Personal history of non-Hodgkin lymphomas; Z86.711 Personal history of pulmonary embolism; Z86.718 Personal history of other venous thrombosis and embolism; Z90.710 Acquired absence of both cervix and uterus; Z92.21 Personal history of antineoplastic chemotherapy; Z90.49 Acquired absence of other specified parts of digestive tract; Z88.0 Allergy status to penicillin; Z88.2 Allergy status to sulfonamides
CPT/HCPCS: 31500; 36415; 36556; 36600; 71045; 76705; 76770; 80048; 80053; 81001; 82550; 82553; 82803; 82805; 83605; 83735; 83880; 84100; 84484; 85025; 85610; 85730; 86850; 86900; 86901; 87040; 87070; 87205; 87635; 93005; 93306; 94002; 94640; 96361; 96374; 96375; 99291; 99292